=== PATIENT | female | born 1970 | race Caucasian/White ===

== ENCOUNTER 2016-09-23 10:24 | Inpatient (IN) | payer OTHER ==
[~2016-09-23] VITALS: Ht 175.3 cm; Wt 75.9 kg
[2016-09-23] MEDS ORDERED: SODIUM CHLORIDE 0.9% 1000ML 1,000 ML IV SCH (10:35)
--- NOTE | 2016-09-23 10:48 | EMERGENCY ROOM VISIT NOTE ---
History Report prepared by Willian: Johnnie Hess Under the Supervision of: Dr. Hortencia Greenwood D.O. First contact with patient: 10:26 Chief Complaint: NEURO SYMPTOMS Stated Complaint: NEURO SYMPTOMS Nursing Triage Summary: Pt arrives ALS from home Pt awoke at 0915 and had slurred speech and left side of body was flacid. Pt with noted left sided facial droop Recent insulin pump placed 2 months ago Pt reports sx lasted 45 mins History of Present Illness The patient is a 46 year old female who presents to the Emergency Room with complaints of an episode of neuro symptoms beginning at about 0915 this morning. Per the nurse, patient, and patient's , she woke this morning with a cramping pain in her left leg. After sitting for a couple minutes, she collapsed, and became unconscious for a few seconds. The notes she did not know who he was when she came to. She was unable to move her left arm or left leg, and the noticed the patient had slurred speech. The patient notes that she has diabetes, and when her sugar levels are low she has some numbness and weakness, but never paralysis. Her blood sugar was 63 her at the ER. She notes she started on an insulin pump about 1 month ago. The patient denies being anemic in the past with a need for a blood transfusion, but states she was anemic during a past . She denies any chance of at this time. She denies being on any blood thinners. The patient reports a family history of stroke with her mother most recently, and her grandfather who had multiple strokes. Source of History: patient, family, nursing staff Onset: about 0915 this morning Position: other (left side arm, leg, and face) Quality: other (neuro symptoms) Timing: other (episode) Associated Symptoms: + numbness, + weakness Note: Patient also had slurred speech, and left leg pain. Review of Systems See HPI for pertinent positives & negatives. A total of 10 systems reviewed and were otherwise negative. Past Medical & Surgical Medical Problems: (1) Hx of ectopic (2) IDDM (insulin dependent diabetes mellitus) (3) Left-sided weakness Surgical Problems: (1) Hx of tonsillectomy (2) S/P section Family History Stroke Social History Smoking Status: Former Smoker Marital Status: Housing Status: lives with significant other Current/Historical Medications Scheduled Insulin Aspart (novoLOG INSULIN PUMP ), 1 EA N/A UD Allergies Coded Allergies: Oxycodone (Unverified Allergy, Unknown, unknown, 09/23/16) Physical Exam Vital Signs Date Time Temp Pulse Resp B/P Pulse Ox O2 Delivery O2 Flow Rate FiO2 09/23/16 12:14 100 Room Air 09/23/16 11:45 81 18 118/80 100 Room Air 09/23/16 11:28 79 09/23/16 11:15 82 16 114/73 99 Room Air 09/23/16 10:48 100 Room Air 09/23/16 10:48 79 16 130/59 100 Room Air 09/23/16 10:27 36.9 82 16 124/73 100 Room Air Physical Exam HEENT: Head - normocephalic and atraumatic. Pupils are equal, round, and reactive to light. Extraocular eye muscles are intact and sclera are anicteric. Ears - bilaterally patent canals with noninjected tympanic membranes and no evidence of hemotympanum. Nose - moist nasal mucosa without discharge. Mouth - moist buccal mucosa. Oropharynx is nonerythematous and there is no tonsillar exudate or edema noted. Neck: Supple; no JVD, nuchal rigidity, cervical lymphadenopathy. Heart: Regular rate and rhythm. There is a normal S1 and S2 with no murmurs, clicks, or gallops appreciated. Lungs: Clear to auscultation bilaterally with no wheezes, rales, or rhonchi. Abdomen: Soft, completely nontender, nondistended, with good bowel sounds. There are no palpable pulsatile masses or hepatosplenomegaly. There is no guarding, rigidity, or rebound noted. Extremities: No evidence of cyanosis, clubbing, or edema. There are easily palpable peripheral pulses. Neuro: Alert and oriented. Left sided mouth droop. Slightly slurred speech. Decreased coordination in her left arm and left leg, with very slight weakness. Medical Decision & Procedures ER Provider Diagnostic Interpretation: Radiology results as stated below per my review and the radiologist's interpretation: HEAD CT NONCONTRAST Findings: Trace fluid within the right sphenoid sinus. The mastoid air cells are clear. The calvarium and skull base are intact. The ventricles and sulci are within normal limits. There is no mass, hematoma, midline shift, or acute infarct. Impression: No acute intracranial abnormality. Electronically signed by: Rick Machado M.D. 09/23/2016 10:58 AM Dictated Date/Time: 09/23/2016 10:55 AM CHEST ONE VIEW PORTABLE FINDINGS: The lungs are clear. Cardiac silhouette is normal in size. No pleural effusions. No pneumothorax. IMPRESSION: No acute process. Electronically signed by: Rick Machado M.D. 09/23/2016 11:08 AM Dictated Date/Time: 09/23/2016 11:05 AM Laboratory Results 09/23/16 10:53 Red Blood Count 3.95, Mean Corpuscular Volume 97.0, Mean Corpuscular Hemoglobin 31.6, Mean Corpuscular Hemoglobin Concent 32.6, Mean Platelet Volume 9.2, Neutrophils (%) (Auto) 79.4, Lymphocytes (%) (Auto) 14.6, Monocytes (%) (Auto) 5.5, Eosinophils (%) (Auto) 0.3, Basophils (%) (Auto) 0.1, Neutrophils # (Auto) 6.87, Lymphocytes # (Auto) 1.27, Monocytes # (Auto) 0.48, Eosinophils # (Auto) 0.03, Basophils # (Auto) 0.01 09/23/16 10:53 Test 09/23/16 10:34 09/23/16 10:53 Bedside Prothrombin Time INR 1.0 (0.9-1.1) White Blood Count 8.67 K/uL (4.8-10.8) Red Blood Count 3.95 M/uL (4.2-5.4) Hemoglobin 12.5 g/dL (12.0-16.0) Hematocrit 38.3 % (37-47) Mean Corpuscular Volume 97.0 fL (80-100) Mean Corpuscular Hemoglobin 31.6 pg (25-34) Mean Corpuscular Hemoglobin Concent 32.6 g/dl (32-36) Platelet Count 326 K/uL (130-400) Mean Platelet Volume 9.2 fL (7.4-10.4) Neutrophils (%) (Auto) 79.4 % Lymphocytes (%) (Auto) 14.6 % Monocytes (%) (Auto) 5.5 % Eosinophils (%) (Auto) 0.3 % Basophils (%) (Auto) 0.1 % Neutrophils # (Auto) 6.87 K/uL (1.4-6.5) Lymphocytes # (Auto) 1.27 K/uL (1.2-3.4) Monocytes # (Auto) 0.48 K/uL (0.11-0.59) Eosinophils # (Auto) 0.03 K/uL (0-0.5) Basophils # (Auto) 0.01 K/uL (0-0.2) RDW Standard Deviation 49.4 fL (36.4-46.3) RDW Coefficient of Variation 13.7 % (11.5-14.5) Immature Granulocyte % (Auto) 0.1 % Immature Granulocyte # (Auto) 0.01 K/uL (0.00-0.02) Prothrombin Time 10.3 SECONDS (9.0-12.0) Prothromb Time International Ratio 1.0 (0.9-1.1) Activated Partial Thromboplast Time 24.7 SECONDS (21.0-31.0) Partial Thromboplastin Ratio 1.0 Anion Gap 8.0 mmol/L (3-11) Est Creatinine Clear Calc Drug Dose 105.0 ml/min Estimated GFR () 111.0 Estimated GFR (Non- 95.8 BUN/Creatinine Ratio 13.3 (10-20) Estimated Average Glucose 174 mg/dl Hemoglobin A1c 7.7 % (4.5-5.6) Calcium Level 9.0 mg/dl (8.5-10.1) Total Creatine Kinase 72 U/L (26-192) Creatine Kinase MB 0.6 ng/ml (0.5-3.6) Creatine Kinase MB Ratio 0.8 (0-3.0) Troponin I < 0.015 ng/ml (0-0.045) Human Chorionic Gonadotropin, Qual NEG (NEG) Laboratory results per my review. Medications Administered Medications (Trade) Dose Ordered Sig/Yue Route Start Time Stop Time Status Last Admin Dose Admin Sodium Chloride (Nss 1000ml) 1,000 ml @ 50 mls/hr Q20H IV 09/23/16 10:35 09/23/16 14:08 DC 09/23/16 10:57 50 MLS/HR Procedure Medications Ordered: 1035: Ordered NSS 1,000 ml @ 50 mls/hr IV. ECG Indication: other (neuro symptoms) Rate (beats per minute): 76 Rhythm: normal sinus Findings: no acute ischemic change, no ectopy ED Course 1030: Past medical records reviewed. The patient was evaluated in room A11B. A complete history and physical exam was performed. 1035: Ordered NSS 1,000 ml @ 50 mls/hr IV. 1053: Discussed the patient's case with Dr. Bates. 1059: I reassessed the patient. Her facial droop and slurred speech have resolved. She has no more numbness in her leg, but her arm still feels weak. 1134: I reassessed the patient. Stroke score is down to 0. She is feeling somewhat symptomatic from her low blood sugar, so she will be getting some orange juice. 1153: Dr. Bates notes the patient's symptoms have completely resolved now. She recommends admission for further workup, and starting her on Aspirin. The patient's told her the loss of consciousness was 30 seconds and not five seconds as I was told. He thinks the patient should be reported to [facility]. I did fill out a [facility] form but she is from [facility] and regular 1200: Discussed the patient's case with Lois Menjivar PA-C. The patient will be evaluated for further management. Medical Decision The patient is a 46 year old female who presents to the Emergency Room with complaints of an episode of neuro symptoms beginning at about 0915 this morning. Differential Diagnoses: Hypoglycemia, hyperglycemia, TIA, and CVA. Laboratory Interpretations: No leukocytosis; normal H&H; normal renal function; negative cardiac enzymes; normal coags. The patient was made a stroke alert. I discussed the case with the neurologist from [place]. At this time, the patient's symptoms have completely resolved. The patient does have significant risk factors for stroke. The patient did not require TPA as her symptoms resolved. CT scan of her brain was unremarkable. I discussed the case the hospitalist and they will violate the patient for further inpatient care. Consults Time Called: 1050 Consulting Physician: Meagan Brenard Neurologist Returned Call: 1053 Discussed the patient's case with Dr. Bates. Additional Consults: Time Called: 1145 Consulted Physician: Meagan Bernard Neurologist Returned Call: 1153 Additional Comments: Dr. Bates notes the patient's symptoms have completely resolved now. She recommends admission for further workup, and starting her on Aspirin. The patient's told her the loss of consciousness was 30 seconds and not five seconds as I was told. She thinks the patient should be reported to [facility]. Time Called: 1155 Consulted Physician: Lois Menjivar PA-C, [place] Returned Call: 1200 Additional Comments: Discussed the patient's case with Lois Menjivar PA-C. The patient will be evaluated for further management. Impression Primary Impression: TIA (transient ischemic attack) Scribe Attestation The scribe's documentation has been prepared under my direction and personally reviewed by me in its entirety. I confirm that the note above accurately reflects all work, treatment, procedures, and medical decision making performed by me. Departure Information Dispostion Being Evaluated By Hospitalist Patient Instructions My [facility] Stroke History Stroke t-PA Criteria Reviewed Does NOT meet criteria for t-PA Reason t-PA Not Given Treatment not indicated Strict Exclusion Criteria Complete resolution of symptoms (NI
[2016-09-23] MEDS ORDERED: INSPMPNVLG (10:55)
--- NOTE | 2016-09-23 10:59 | DIAGNOSTIC IMAGING REPORT ---
HEAD CT NONCONTRAST CT DOSE: 537.48 mGy.cm HISTORY: Slurred speech. Stroke TECHNIQUE: Multiaxial CT images of the head were performed without the use of intravenous contrast. Automated exposure control was utilized for this study. Comparison: None. Findings: Trace fluid within the right sphenoid sinus. The mastoid air cells are clear. The calvarium and skull base are intact. The ventricles and sulci are within normal limits. There is no mass, hematoma, midline shift, or acute infarct. Impression: No acute intracranial abnormality. Electronically signed by: Rick Machado M.D. 09/23/2016 10:58 AM Dictated Date/Time: 09/23/2016 10:55 AM
[2016-09-23 11:04] LABS: BASO % 0.1 %; BASO ABS # 0.01 K/uL (0-0.2); COMPLETE YES; EOS % 0.3 %; HEMATOCRIT 38.3 % (37-47); IG% 0.1 %; LYMPH % 14.6 %; LYMPH ABS # 1.27 K/uL (1.2-3.4); MEAN CORPUSCULAR HEMOGLOBIN 31.6 pg (25-34); MEAN CORPUSCULAR HGB CONC 32.6 g/dl (32-36); MEAN PLATELET VOLUME 9.2 fL (7.4-10.4); MONO % 5.5 %; NEUT % 79.4 %; PLATELET COUNT 326 K/uL (130-400); RED BLOOD COUNT 3.95 M/uL (4.2-5.4); WHITE BLOOD COUNT 8.67 K/uL (4.8-10.8)
--- NOTE | 2016-09-23 11:09 | DIAGNOSTIC IMAGING REPORT ---
CHEST ONE VIEW PORTABLE HISTORY: Slurred speech. Left-sided weakness. Stroke COMPARISON: None. FINDINGS: The lungs are clear. Cardiac silhouette is normal in size. No pleural effusions. No pneumothorax. IMPRESSION: No acute process. Electronically signed by: Rick Machado M.D. 09/23/2016 11:08 AM Dictated Date/Time: 09/23/2016 11:05 AM
[2016-09-23 11:20] LABS: BLOOD UREA NITROGEN 10 mg/dl (7-18); BUN/CREATININE RATIO 13.3 (10-20); CARBON DIOXIDE 29 mmol/L (21-32); CHLORIDE 105 mmol/L (98-107); CREATININE 0.74 mg/dl (0.60-1.20); GLUCOSE 71 mg/dl (70-99); POTASSIUM 3.8 mmol/L (3.5-5.1); SODIUM 142 mmol/L (136-145)
[2016-09-23 11:22] LABS: PROTHROMBIN TIME (PATIENT) 10.3 SECONDS (9.0-12.0)
[2016-09-23 11:25] LABS: CKMB/CK RATIO 0.8 (0-3.0)
[2016-09-23 12:14] VITALS: O2SAT 100; Ht 175.3 cm; Wt 75.9 kg
[2016-09-23] MEDS ORDERED: GLUCOSE 40% GEL 15 GM TUBE PO PRN (12:45)
[2016-09-23] MEDS ORDERED: GLUCOSE 10 TABS/TUBE PO PRN (12:45)
[2016-09-23] MEDS ORDERED: ONDANSETRON INJ 2 MG/ML 2 ML VIAL IV PRN (12:45)
[2016-09-23] MEDS ORDERED: PHARMACIST DISCHARGE MED REC CONSULT PRN (12:45)
[2016-09-23] MEDS ORDERED: ACETAMINOPHEN 325 MG TAB PO PRN (12:45)
[2016-09-23] MEDS ORDERED: NovoLOG INSULIN PUMP SCH (12:45)
[2016-09-23] MEDS ORDERED: DEXTROSE 50% 50 ML SYR IV PRN (12:45)
[2016-09-23] MEDS ORDERED: GLUCAGON FOR INJ 1 MG VIAL SQ PRN (12:45)
[2016-09-23] MEDS ORDERED: ASPIRIN 81 MG CHEW PO STA (12:47)
[2016-09-23] MEDS ORDERED: ACETAMINOPHEN 325 MG TAB ONE (12:59)
[2016-09-23 13:12] LABS: PREG INTERNAL NEGATIVE QC NEG CLEAR BACKGROUND; PREG INTERNAL POSITIVE QC POS CONTROL LINE
--- NOTE | 2016-09-23 13:18 | History and Physical ---
History & Physical Date & Time of Service: Sep 23, 2016 at 12:51 Chief Complaint: Neuro Symptoms Primary Care Physician: No Doctor, Assigned History of Present Illness Source: patient, family, hospital records Patient seen and examined. 46 year old female with PMHx of DM1 on insulin pump and previous tobacco user presents to the ED complaining of left sided paralysis since prior to arrival. Patient reports she wokeup this morning with a severe cramp in her left leg. She sat up and screamed out in pain. Her reports that he came over and she was reaching out for him, she then slumped over and was unresponsive for a few seconds. When she woke up she was noted to have some confusion, have slurred speech and a mild left facial droop. She complained of left sided numbness and her left upper and lower extremities were paralyzed. Her tried to take her blood sugar but couldn't get it to work. He called 911 and EMS arrived, at that time patient's BSG was 76. Patient states her symptoms began to improve but she still had some symptoms upon arrival to the ED. A stroke alert was called and during examination patient 's stroke score improved to 0. Currently the patient feels back at baseline. She reports she has a headache but that that happens when her blood sugar is low or high. She denies recent fevers, chills, URI symptoms, chest pain, SOB, nausea, vomiting, diarrhea, dysuria, calf pain and edema. She denies palpitations, tongue trauma, and incontinence. She denies any previous history of these symptoms. She reports a family history of TIAs. She does not take aspirin. In the ED VS were stable, BSG was as low as 63 and improved after orange juice. CT head was negative. She will be admitted for further workup and treatment. Past Medical/Surgical History Medical Problems: (1) Hx of ectopic Status: Chronic (2) IDDM (insulin dependent diabetes mellitus) Status: Chronic Surgical Problems: (1) Hx of tonsillectomy Status: Chronic (2) S/P section Status: Chronic Family History Stroke MOTHER Social History Smoking Status: Former Smoker Alcohol Use: none Marital Status: Housing status: lives with family Occupational Status: employed Allergies Coded Allergies: Oxycodone (Unverified Allergy, Unknown, unknown, 09/23/16) Home Medications Scheduled Insulin Aspart (novoLOG INSULIN PUMP ), 1 EA N/A UD Review of Systems Constitutional: + weakness, No chills, No fever Eyes: No worsening of vision ENT: No nasal symptoms Respiratory: No cough, No shortness of breath Cardiovascular: No chest pain, No edema, No palpitations Abdomen: No constipation, No diarrhea, No nausea, No pain, No vomiting Musculoskeletal: + muscle pain, No swelling Genitourinary - Female: No dysuria Neurologic: + numbness/tingling, + paralysis, + weakness, No vertigo Psychiatric: No anxiety, No insomnia Endocrine: No fatigue Hematologic / Lymphatic: No abnormal bleeding/bruising, No clotting problems Integumentary: No itch, No rash Allergic / Immunologic: No environmental allergies Physical Exam Vital Signs Date Time Temp Pulse Resp B/P Pulse Ox O2 Delivery O2 Flow Rate FiO2 09/23/16 12:14 100 Room Air 09/23/16 11:45 81 18 118/80 100 Room Air 09/23/16 11:28 79 09/23/16 11:15 82 16 114/73 99 Room Air 09/23/16 10:48 100 Room Air 09/23/16 10:48 79 16 130/59 100 Room Air 09/23/16 10:27 36.9 82 16 124/73 100 Room Air General Appearance: + pertinent finding (Pleasant WD/WN 46 year old female lying in bed in NAD with family at bedside ) Head: normocephalic, atraumatic Eyes: PERRL, EOMI, sclerae normal ENT: hearing grossly normal, pharynx normal Neck: supple, no JVD Respiratory/Chest: chest non-tender, lungs clear, normal breath sounds, no respiratory distress, no accessory muscle use Cardiovascular: regular rate, rhythm, no edema, no gallop, no JVD, no murmur, normal peripheral pulses Abdomen/GI: normal bowel sounds, non tender, soft Back: normal inspection, no muscle spasm Extremities/Musculoskelatal: no calf tenderness, normal capillary refill, no pedal edema Neurologic/Psych: manager client II-XII nml as tested, no motor/sensory deficits, alert, normal reflexes, oriented x 3, + pertinent finding (Finger to nose intact, good rapid alternating movement, no focal deficits ) Skin: normal color, warm/dry, no rash Lymphatic: no adenopathy Diagnostics Laboratory Results Results Past 24 Hours Test 09/23/16 10:33 09/23/16 10:34 09/23/16 10:53 09/23/16 12:16 Range/Units Bedside Glucose 63 99 70-90 mg/dl Bedside Prothrombin Time INR 1.0 0.9-1.1 White Blood Count 8.67 4.8-10.8 K/uL Red Blood Count 3.95 4.2-5.4 M/uL Hemoglobin 12.5 12.0-16.0 g/dL Hematocrit 38.3 37-47 % Mean Corpuscular Volume 97.0 80-100 fL Mean Corpuscular Hemoglobin 31.6 25-34 pg Mean Corpuscular Hemoglobin Concent 32.6 32-36 g/dl Platelet Count 326 130-400 K/uL Mean Platelet Volume 9.2 7.4-10.4 fL Neutrophils (%) (Auto) 79.4 % Lymphocytes (%) (Auto) 14.6 % Monocytes (%) (Auto) 5.5 % Eosinophils (%) (Auto) 0.3 % Basophils (%) (Auto) 0.1 % Neutrophils # (Auto) 6.87 1.4-6.5 K/uL Lymphocytes # (Auto) 1.27 1.2-3.4 K/uL Monocytes # (Auto) 0.48 0.11-0.59 K/uL Eosinophils # (Auto) 0.03 0-0.5 K/uL Basophils # (Auto) 0.01 0-0.2 K/uL RDW Standard Deviation 49.4 36.4-46.3 fL RDW Coefficient of Variation 13.7 11.5-14.5 % Immature Granulocyte % (Auto) 0.1 % Immature Granulocyte # (Auto) 0.01 0.00-0.02 K/uL Prothrombin Time 10.3 9.0-12.0 SECONDS Prothromb Time International Ratio 1.0 0.9-1.1 Activated Partial Thromboplast Time 24.7 21.0-31.0 SECONDS Partial Thromboplastin Ratio 1.0 Sodium Level 142 136-145 mmol/L Potassium Level 3.8 3.5-5.1 mmol/L Chloride Level 105 98-107 mmol/L Carbon Dioxide Level 29 21-32 mmol/L Anion Gap 8.0 3-11 mmol/L Blood Urea Nitrogen 10 7-18 mg/dl Creatinine 0.74 0.60-1.20 mg/dl Est Creatinine Clear Calc Drug Dose 105.0 ml/min Estimated GFR () 111.0 Estimated GFR (Non- 95.8 BUN/Creatinine Ratio 13.3 10-20 Random Glucose 71 70-99 mg/dl Calcium Level 9.0 8.5-10.1 mg/dl Total Creatine Kinase 72 26-192 U/L Creatine Kinase MB 0.6 0.5-3.6 ng/ml Creatine Kinase MB Ratio 0.8 0-3.0 Troponin I < 0.015 0-0.045 ng/ml Test 09/23/16 12:49 Range/Units Diagnostic Radiology CXR Per radiologist read: IMPRESSION: No acute process. CT HEAD Per radiologist read: Impression: No acute intracranial abnormality. EKG NSR 76 BPM, QTc 477 Impression Assessment and Plan 46 year old female with IDDM presents to the ED with stroke like symptoms prior to arrival. Started with left leg pain then patient had syncopal episode. When patient woke up she had slurred speech, left facial droop, left sided paralysis and numbness. CT head negative. Currently back at baseline LEFT SIDED WEAKNESS/PARALYSIS -Admit to tele -CT head negative in ED, back at neurologic baseline -differential diagnosis to include TIA, hypoglycemic event, vasovagal episode and other etiologies -MRA/MRI to r/o CVA -Echo pending to r/o embolic source -Carotid Doppler US pending -Monitor in tele to r/o arrhythmia -Received Aspirin in ED, continue daily -Add statin for plaque stabilization -Check A1c, Lipid profile for risk stratification -Neurology consult pending for further input, spoke with Dr. Rausch, input appreciated -Neuro checks q4h -CBC, PRP, Mg daily -VSS stable monitor INSULIN DEPENDENT DIABETES -with relative hypoglycemia -continue insulin pump for now -If BSG do not stabilize may need to transition to a basal, bolus dosing while inpatient -BSG AC HS -consistent carb diet -Follows with Rosi Miller [place], [place] DVT PROPHYLAXIS: Sq lovenox CODE STATUS: FULL CODE DISPO:In my clinical judgment this beneficiary meets acute admission criteria, established by [facility], that includes being hospitalized through two midnights. Patient seen in collaboration with Dr. Coffmna Advanced Directives Existing Living Will: No Existing Power of Curing Machine Operator: No VTE Prophylaxis VTE Risk Assessment Done? Y/N: Yes Risk Level: Moderate Given or contraindicated: Enoxaparin (Lovenox)SQ Note ATTENDING ADDENDUM Record reviewed. Patient interviewed and examined. Care coordinated with Lois Menjivar PA-C. Please refer to her documentation for patient's history. Briefly, 46 YO female with DM type 1 managed with insulin pump. Developed severe left leg cramps this morning, followed by syncope. Experienced dysarthria and paresthesia / weakness of left arm and leg after syncopal episode. No apparent seizure activity. No headache. Blood sugar by EMS in 70's. Symptoms resolved in ED. No prior neurologic history. EXAM: General- no distress VS- as noted HEENT- PERRL, EOMI, anicteric Neck- no JVD Lungs- clear Heart- RRR, no murmur or gallop Abdomen- + BS, soft, nontender Extremities- no pretibial edema or calf tenderness; pedal pulses intact; normal temperature & color lower extremities Neuro- alert, oriented; PERRL, EOMI; no facial palsy; no dysarthria; motor strength upper and lower extremities intact; patellar DTR's 2/2; plantar reflexes downgoing; no difficulty with heal to [place] DATA: Lab studies as noted. Head CT neg. EKG- NSR 76, no acute changes. ASSESSMENT AND PLAN: NEURO SYMPTOMS Transient dysarthria and left sided weakness / paresthesiae. Exam normalized in ED. Symptoms preceded by severe leg pain followed by syncope. Neuro symptoms may have been secondary to TIA. Alternatively, consider hypoglycemia or transient cerebral hypoperfusion due to vasovagal episode. TPA not indicated due to resolution of symptoms. Check MRI brain, MRA brain, carotid duplex, echo. Monitor for arrhythmias. Consult Neuro. SYNCOPE Most likely vasovagal episode. Monitor for arrhythmias. Neuro work-up as noted above. LLE PAIN No apparent vascular event. Follow. DM TYPE 1 Consult Pharmacy to assist with management of insulin pump. Please refer to [employer] Menjivar's documentation for discussion of other issues. Slava Coffman MD . Additional Copies To Maulik Tobin MD ; Rosi Miller
[2016-09-23 13:34] LABS: ESTIMATED AVERAGE GLUCOSE 174 mg/dl; HA1C FLAG Normal (Normal)
[2016-09-23 13:36] LABS: URINE APPEARANCE CLEAR (CLEAR); URINE BILIRUBIN NEG (NEG); URINE COLOR YELLOW; URINE NITRITE NEG (NEG); URINE SPECIFIC GRAVITY 1.009 (1.000-1.030); UROBILINOGEN NEG (NEG); ZZUR CULT IF INDIC CLEAN CATCH NO
[2016-09-23 13:44] LABS: MANUAL MICROSCOPIC REQUIRED? NO; REVIEW REQ? NO
[2016-09-23 13:45] VITALS: BP 120/75; PULSE 84; TEMP 36.5; O2SAT 100
[2016-09-23 14:10] LABS: BENZODIAZEPINE, URINE NEG (NEG); COCAINE,URINE NEG (NEG); PHENCYCLIDINE, URINE NEG (NEG)
[2016-09-23] MEDS ORDERED: INSULIN ASPART 100 UNITS/ML VIAL SC PRN (14:15)
[2016-09-23] MEDS: NovoLOG INSULIN PUMP SCH ×3 (14:20→21:04)
[2016-09-23] MEDS ORDERED: LORAZEPAM 0.5 MG TAB PO PRN (14:45)
[2016-09-23 15:11] VITALS: BP 118/75; PULSE 85; TEMP 36.9; O2SAT 97
[2016-09-23] MEDS ORDERED: PHARMACY GLYCEMIC MGMT CONSULT PRN (15:28)
--- NOTE | 2016-09-23 15:54 | PROGRESS NOTE ---
DATE: 09/23/2016 FOR PHYSICIAN: Dr. Rani Arellano. Kandace is a 46-year-old woman, [facility] [place] [facility] the count includes the [facility] [place] and followed there by endocrinology and primary care. She has longstanding diabetes and on insulin pump for the past month and apparently has had some episodes of hypoglycemia which are being addressed. She was visiting here in [place], awakened this morning with severe cramping of her left calf and sat up, screaming in pain and then had a brief episode of loss of consciousness, probably of 30 seconds or so duration without any convulsive movements and woke up slightly confused with a left-sided hemiparesis, hemisensory deficits, and some mild confusion. She was brought to the Emergency Room. The blood sugar was actually found to be 76. A stroke alert was called. The [place] stroke neurology team was evaluating her when her entire condition improved and she was back to a NIH score of 0. No TPA was obviously given. Aspirin was recommended as she was not on it but because of the altered consciousness, it was recommended that [facility] Department of Motor Vehicles be notified and apparently this was done. Lois Us called me for further advice. I am now reviewing the case. When I heard about it the first time, I really had nothing further to offer other than recommendation that imaging studies be done but that these be adjusted based on whether or not our radiology department can perform magnetic resonance imaging studies in a patient with insulin pump and I believe this is being investigated now. Currently, her CT scan has been done, it was reviewed and is normal. Chest x-ray is normal, but other imaging studies are pending including at least a carotid duplex and ideally an MRI of the brain with an MRA of the intracranial vessels, but if these cannot be done, then a repeat CAT scan in the morning and a CT angiogram, depending on her renal function will be necessary. PAST MEDICAL HISTORY: Was reviewed and reveals an ectopic . Insulin-dependent diabetes. She has had a T\\T\\A and section. FAMILY HISTORY: Strongly positive for strokes in her mother SOCIAL HISTORY: Reveals her to be a former smoker and nonconsumer of ethanol, living with her family and children and to be employed. ALLERGIES: SHE HAS ALLERGIES APPARENTLY TO ACETAMINOPHEN AND OXYCODONE. HOME MEDICATIONS: Include insulin via pump. No other medications. SYSTEMS REVIEW: Obtained in the ER reveals no systemic issues, problems referable to the head, eyes, ears, nose and throat, cardiovascular, pulmonary, gastrointestinal, genitourinary, or neuromuscular systems other than apparently some headaches over the years, associated with "hypoglycemia" but no apparent migraines, although this history will need to be delved into a little further. PHYSICAL EXAMINATION: VITAL SIGNS: Revealed blood pressure 118/80, pulse 81, respirations are 18. GENERAL: She was pleasant, did not appear to be in any distress and had reverted to her normal neurologic status by the time she was assessed. General examination was normal. NEUROLOGIC: Examination performed by the internal medicine service was normal. Basic laboratory studies have been unremarkable with a blood sugar of 99 and unremarkable electrolytes. Again, the CT scan reviewed by myself shows no significant issues, but again other evaluations are still underway and being judged by our radiology department based on the presence of the insulin pump. Right now, I have no recommendations other than those offered by the [place] neurology service and I will see her in the morning. Right now aspirin seems to be a reasonable choice. We would not necessarily add Plavix unless we find clear cut evidence for a completed cva. We will see if she has had a completed event based on imaging studies. She will also need an echocardiogram. Followup obviously will be in her home state of [place] once we are through with our initial assessment here. Regarding the syncopal event, I think this is probably a vagally mediated event related to the severity of the pain. Nothing about it sounds like a seizure. She can probably use an outpatient EEG after discharge, assuming she is stable tomorrow and we deem her ready for discharge to home by late tomorrow afternoon. Again, I will reassess her in the morning. DAGMAR
[2016-09-23] MEDS ORDERED: ENOXAPARIN 40 MG/0.4 ML SYR SC SCH (16:00)
--- NOTE | 2016-09-23 16:19 | DIAGNOSTIC IMAGING REPORT ---
Brain MRI WITH AND WITHOUT CONTRAST HISTORY: Left-sided paralysis. Stroke TECHNIQUE: Multiplanar multisequence MRI of the brain was performed both before and after the intravenous administration of contrast. COMPARISON STUDY: None. FINDINGS: There are no areas of restricted diffusion to suggest acute infarction. The midline structures are intact. Small amount of fluid within the right sphenoid sinus. The mastoid air cells are clear. The ventricles and sulci are within normal limits for age. There is no mass, hematoma, midline shift. The major vascular flow-voids at the skull base are well maintained. Postcontrast sequences show no areas of abnormal enhancement. There are 2 punctate foci of T2 hyperintensity seen within the subcortical white matter of the bilateral frontal lobes. IMPRESSION: No acute intracranial abnormality. There are 2 punctate foci of T2 hyperintensity seen within the subcortical white matter the bilateral frontal lobes. These are nonspecific but could be due to minimal microvascular ischemic change or migraines. A demyelinating disease is considered unlikely given the pattern of involvement. Electronically signed by: Rick Machado M.D. 09/23/2016 4:18 PM Dictated Date/Time: 09/23/2016 4:12 PM
--- NOTE | 2016-09-23 16:23 | DIAGNOSTIC IMAGING REPORT ---
Brain MRA HISTORY: Stroke - Attention to [place] TECHNIQUE: 3-D [id number] MRA of the brain was performed without contrast. COMPARISON STUDY: None. FINDINGS: Visualized intracranial internal carotid arteries, distal vertebral arteries, and basilar artery are widely patent. There is no significant stenosis, occlusion, or aneurysm seen within the bilateral ACAs, MCAs, or cane packer. The basilar artery and distal vertebral arteries are slightly hypoplastic. The bilateral P1 segments are hypoplastic. The bilateral cane packer are fed primarily through the dominant posterior communicating arteries. This is consistent with persistent circulation. 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 IMPRESSION: No significant stenosis, occlusion, or aneurysm within the [place]. Electronically signed by: Rick Machado M.D. 09/23/2016 4:22 PM Dictated Date/Time: 09/23/2016 4:18 PM
[2016-09-23 19:01] VITALS: BP 101/66; PULSE 87; TEMP 37.1; O2SAT 96
[2016-09-23 20:00] VITALS: O2SAT 96
[2016-09-23] MEDS: TRAMADOL HCL 50 MG TAB PO PRN (20:11)
[2016-09-23 23:12] VITALS: BP 99/63; PULSE 70; TEMP 36.8; O2SAT 97
[2016-09-24] VITALS (8 sets, daily range): BP systolic 97–101; BP diastolic 61–66; PULSE 60–84; TEMP 36.4–36.9; O2SAT 96–97
[2016-09-24 06:04] LABS: BASO % 0.3 %; BASO ABS # 0.02 K/uL (0-0.2); COMPLETE YES; EOS % 1.4 %; HEMATOCRIT 37.5 % (37-47); IG% 0.2 %; LYMPH % 39.3 %; LYMPH ABS # 2.32 K/uL (1.2-3.4); MEAN CELL VOLUME 97.2 fL (80-100); MEAN CORPUSCULAR HEMOGLOBIN 32.4 pg (25-34); MEAN CORPUSCULAR HGB CONC 33.3 g/dl (32-36); MEAN PLATELET VOLUME 9.2 fL (7.4-10.4); MONO % 10.2 %; NEUT % 48.6 %; PLATELET COUNT 294 K/uL (130-400); RED BLOOD COUNT 3.86 M/uL (4.2-5.4); WHITE BLOOD COUNT 5.91 K/uL (4.8-10.8)
[2016-09-24 06:52] LABS: BUN/CREATININE RATIO 19.1 (10-20); CALCIUM 9.1 mg/dl (8.5-10.1); CHOLESTEROL/HDL RATIO 4.1; CREATININE 0.6 mg/dl (0.60-1.20); POTASSIUM 3.5 mmol/L (3.5-5.1)
--- NOTE | 2016-09-24 07:24 | DIAGNOSTIC IMAGING REPORT ---
CAROTID ARTERY ULTRASOUND CLINICAL HISTORY: Stroke COMPARISON STUDY: None. TECHNIQUE: Real-time, grayscale, and color Doppler sonography of the carotid and vertebral arteries was performed. Images were viewed in the transverse and longitudinal planes. FINDINGS: There is minimal atherosclerotic plaque. Velocity measurements are listed below. COMMON CAROTID PEAK SYSTOLIC VELOCITY (CM/S): RIGHT 81 LEFT 90 ICA PEAK SYSTOLIC VELOCITY (CM/S): RIGHT 87 LEFT 87 The systolic ratios between the internal to common carotid arteries were normal. Antegrade flow is seen in the vertebral arteries. The external carotid arteries are patent. Blood pressures could not be obtained in this patient. IMPRESSION: No evidence of a hemodynamically significant stenosis. Electronically signed by: Caleb Lopez M.D. 09/24/2016 7:23 AM Dictated Date/Time: 09/24/2016 7:21 AM
[2016-09-24] MEDS ORDERED: ATORVASTATIN 40 MG TAB PO SCH (09:00)
[2016-09-24] MEDS ORDERED: ASPIRIN 81 MG ECTAB PO SCH (09:00)
--- NOTE | 2016-09-24 09:05 | ECHOCARDIOGRAM REPORT ---
*NOTICE TO RECEIVING [employer] This information is strictly Confidential and protected under [place] law. [place] law prohibits you from making any further disclosure of this information unless further disclosure is expressly permitted by the written consent of the person to whom it pertains or is authorized by law. A general authorization for the release of medical or other information is not sufficient for this purpose. Hospital accepts no responsibility if the information is made available to any other person, INCLUDING THE PATIENT. Interpretation Summary * Name: JEFF CALLE Study Date: 09/24/2016 06:51 AM BP: 117/69 mmHg * Patient Location: C.2T\S\S230\S\1 HR: 81 * : 1970 (M/d/yyyy) Gender: Female Height: 69 in * Age: 46 yrs Ethnicity: CA Weight: 175 lb * Ordering Physician: Lois Menjivar * Performed By: Rosie Santana * * Reason For Study: STROKE LIKE SYMPTOMS * BSA: 2.0 m2 * -- Conclusions -- * The left ventricle is normal in size. * Left ventricular systolic function is normal. * Ejection Fraction = 65-70%. * The right ventricular systolic function is normal. * The left atrial size is normal. * Right atrial size is normal. * No significant valvular patrhology. Procedure Details * A complete two-dimensional transthoracic echocardiogram was performed (2D, M-mode, Doppler and color flow Doppler). * A saline contrast injection was performed to assess for cardiac shunting. * The injection was performed through an intravenous line in the right arm. * The attending nurse who injected the saline contrast was SHY VILLEGAS RN. * A total of 20 cc of agitated saline was given. Left Ventricle * The left ventricle is normal in size. * There is normal left ventricular wall thickness. * Ejection Fraction = 65-70%. * Left ventricular systolic function is normal. * The left ventricular wall motion is normal. Right Ventricle * The right ventricle is normal size. * The right ventricular systolic function is normal. Atria * The left atrial size is normal. * Right atrial size is normal. * The interatrial septum is intact with no evidence for an atrial septal defect. Mitral Valve * The mitral valve is normal in structure and function. Tricuspid Valve * The tricuspid valve is normal in structure and function. Aortic Valve * The aortic valve is normal in structure and function. Great Vessels * The aortic root and proximal ascending aorta are normal sized. Pericardium/Pleural * There is no pericardial effusion. MMode 2D Measurements and Calculations IVSd 1.2 cm IVSs 1.3 cm LVIDd 4.0 cm LVIDs 2.5 cm LVPWd 0.84 cm LVPWs 1.9 cm IVS/LVPW 1.5 FS 38.9 % EDV(Teich) 71.7 ml ESV(Teich) 21.6 ml EF(Teich) 69.9 % EDV(cubed) 65.9 ml ESV(cubed) 15.0 ml EF(cubed) 77.2 % % IVS thick 9.9 % % LVPW thick 123.2 % LV mass(C)d 135.5 grams LV mass(C)dI 69.4 grams/m\S\2 LV mass(C)s 142.0 grams LV mass(C)sI 72.7 grams/m\S\2 SV(Teich) 50.1 ml SI(Teich) 25.6 ml/m\S\2 SV(cubed) 50.9 ml SI(cubed) 26.1 ml/m\S\2 ACS 1.4 cm LA dimension 2.6 cm asc Aorta Diam 2.9 cm LVOT diam 1.9 cm LVOT area 2.8 cm\S\2 LVAd ap4 21.2 cm\S\2 LVLd ap4 6.6 cm EDV(MOD-sp4) 55.3 ml EDV(sp4-el) 58.0 ml LVAs ap4 9.8 cm\S\2 LVLs ap4 5.1 cm ESV(MOD-sp4) 16.6 ml ESV(sp4-el) 16.1 ml EF(MOD-sp4) 69.9 % EF(sp4-el) 72.3 % LVAd ap2 22.4 cm\S\2 LVLd ap2 7.0 cm EDV(MOD-sp2) 59.3 ml EDV(sp2-el) 61.0 ml LVAs ap2 10.6 cm\S\2 LVLs ap2 5.0 cm ESV(MOD-sp2) 18.3 ml ESV(sp2-el) 19.2 ml EF(MOD-sp2) 69.1 % EF(sp2-el) 68.6 % LVLd %diff 5.7 % EDV(MOD-bp) 59.1 ml LVLs %diff -1.35 % ESV(MOD-bp) 16.7 ml EF(MOD-bp) 71.7 % SV(MOD-sp4) 38.7 ml SI(MOD-sp4) 19.8 ml/m\S\2 SV(MOD-sp2) 41.0 ml SI(MOD-sp2) 21.0 ml/m\S\2 SV(MOD-bp) 42.3 ml SI(MOD-bp) 21.7 ml/m\S\2 SV(sp4-el) 41.9 ml SI(sp4-el) 21.5 ml/m\S\2 SV(sp2-el) 41.9 ml SI(sp2-el) 21.4 ml/m\S\2 Doppler Measurements and Calculations MV E max dayna 67.4 cm/sec MV A max dayna 57.2 cm/sec MV E/A 1.2 MV dec time 0.32 sec Ao V2 max 133.9 cm/sec Ao max PG 7.2 mmHg Ao max PG (full) 2.4 mmHg SIENA(V,A) 2.3 cm\S\2 SIENA(V,D) 2.3 cm\S\2 LV V1 max PG 4.8 mmHg LV V1 max 109.5 cm/sec PA V2 max 76.6 cm/sec PA max PG 2.3 mmHg
[2016-09-24] MEDS: NovoLOG INSULIN PUMP SCH ×2 (09:30→11:40)
--- NOTE | 2016-09-24 12:20 | Progress Note ---
Medicine Progress Note Date & Time of Visit: Sep 24, 2016 at 11:52. Subjective Pt was seen and examined Sitting at the edge of the bed with at bed side Pt said that she feels fine she denies any chest pain, palpitation, dizziness and sob Objective Last 8 Hrs Date Time Temp Pulse Resp B/P Pulse Ox O2 Delivery O2 Flow Rate FiO2 09/24/16 11:29 36.9 76 16 101/65 96 Room Air 09/24/16 07:57 36.4 84 16 97/66 97 Room Air 09/24/16 04:00 97 Room Air 09/24/16 03:58 36.6 60 16 97/61 97 Room Air Physical Exam: General- No acute distress, very pleasant Head- atraumatic Eyes- PERRL, EOMI ENT- oropharynx clear Neck- supple, no JVD Lungs- clear to auscultation, no wheezing Heart- regular rhythm; no murmur Abdomen- normal bowel sounds, soft Extremities- no pretibial edema, no calf tenderness Neuro- alert, oriented x 3; PERRL, EOMI; no facial palsy; no dysarthria; motor 5 /5 bilaterally Skin- warm & dry Laboratory Results: Last 24 Hours Test 09/23/16 12:16 09/23/16 13:20 09/23/16 13:37 09/24/16 05:28 Bedside Glucose 99 mg/dl 210 mg/dl Urine Color YELLOW Urine Appearance CLEAR Urine pH 7.0 Urine Specific [place] 1.009 Urine Protein NEG Urine Glucose (UA) TRACE Urine Ketones TRACE Urine Occult Blood NEG Urine Nitrite NEG Urine Bilirubin NEG Urine Urobilinogen NEG Urine Leukocyte Esterase NEG Urine Opiates Screen NEG Urine Methadone, Qualitative NEG Urine Barbiturates NEG Urine Phencyclidine (PCP) Level NEG Ur Amphetamine/Methamphetamine NEG MDMA (Ecstasy) Screen NEG Urine Benzodiazepines Screen NEG Urine Cocaine Metabolite NEG Urine Marijuana (THC) NEG White Blood Count 5.91 K/uL Red Blood Count 3.86 M/uL Hemoglobin 12.5 g/dL Hematocrit 37.5 % Mean Corpuscular Volume 97.2 fL Mean Corpuscular Hemoglobin 32.4 pg Mean Corpuscular Hemoglobin Concent 33.3 g/dl Platelet Count 294 K/uL Mean Platelet Volume 9.2 fL Neutrophils (%) (Auto) 48.6 % Lymphocytes (%) (Auto) 39.3 % Monocytes (%) (Auto) 10.2 % Eosinophils (%) (Auto) 1.4 % Basophils (%) (Auto) 0.3 % Neutrophils # (Auto) 2.88 K/uL Lymphocytes # (Auto) 2.32 K/uL Monocytes # (Auto) 0.60 K/uL Eosinophils # (Auto) 0.08 K/uL Basophils # (Auto) 0.02 K/uL RDW Standard Deviation 49.5 fL RDW Coefficient of Variation 14.0 % Immature Granulocyte % (Auto) 0.2 % Immature Granulocyte # (Auto) 0.01 K/uL Sodium Level 143 mmol/L Potassium Level 3.5 mmol/L Chloride Level 106 mmol/L Carbon Dioxide Level 28 mmol/L Anion Gap 9.0 mmol/L Blood Urea Nitrogen 11 mg/dl Creatinine 0.60 mg/dl Est Creatinine Clear Calc Drug Dose 119.9 ml/min Estimated GFR () 124.9 Estimated GFR (Non- 107.8 BUN/Creatinine Ratio 19.1 Random Glucose 32 mg/dl Calcium Level 9.1 mg/dl Triglycerides Level 75 mg/dl Cholesterol Level 192 mg/dl HDL Cholesterol 47 mg/dl LDL Cholesterol, Calculated 130 mg/dl VLDL Cholesterol, Calculated 15 mg/dl Cholesterol/HDL Ratio 4.1 Test 09/24/16 06:55 09/24/16 07:10 09/24/16 07:52 Bedside Glucose 34 mg/dl 40 mg/dl 109 mg/dl Diagnostic Imaging: Brain MRI WITH AND WITHOUT CONTRAST HISTORY: Left-sided paralysis. Stroke TECHNIQUE: Multiplanar multisequence MRI of the brain was performed both before and after the intravenous administration of contrast. COMPARISON STUDY: None. FINDINGS: There are no areas of restricted diffusion to suggest acute infarction. The midline structures are intact. Small amount of fluid within the right sphenoid sinus. The mastoid air cells are clear. The ventricles and sulci are within normal limits for age. There is no mass, hematoma, midline shift. The major vascular flow-voids at the skull base are well maintained. Postcontrast sequences show no areas of abnormal enhancement. There are 2 punctate foci of T2 hyperintensity seen within the subcortical white matter of the bilateral frontal lobes. IMPRESSION: No acute intracranial abnormality. There are 2 punctate foci of T2 hyperintensity seen within the subcortical white matter the bilateral frontal lobes. These are nonspecific but could be due to minimal microvascular ischemic change or migraines. A demyelinating disease is considered unlikely given the pattern of involvement. Electronically signed by: Rick Machado M.D. 09/23/2016 4:18 PM Dictated Date/Time: 09/23/2016 4:12 PM CAROTID ARTERY ULTRASOUND CLINICAL HISTORY: Stroke COMPARISON STUDY: None. TECHNIQUE: Real-time, grayscale, and color Doppler sonography of the carotid and vertebral arteries was performed. Images were viewed in the transverse and longitudinal planes. FINDINGS: There is minimal atherosclerotic plaque. Velocity measurements are listed below. COMMON CAROTID PEAK SYSTOLIC VELOCITY (CM/S): RIGHT 81 LEFT 90 ICA PEAK SYSTOLIC VELOCITY (CM/S): RIGHT 87 LEFT 87 The systolic ratios between the internal to common carotid arteries were normal. Antegrade flow is seen in the vertebral arteries. The external carotid arteries are patent. Blood pressures could not be obtained in this patient. IMPRESSION: No evidence of a hemodynamically significant stenosis. Electronically signed by: Caleb Lopez M.D. 09/24/2016 7:23 AM Dictated Date/Time: 09/24/2016 7:21 AM Brain MRA HISTORY: Stroke - Attention to [place] TECHNIQUE: 3-D [id number] MRA of the brain was performed without contrast. COMPARISON STUDY: None. FINDINGS: Visualized intracranial internal carotid arteries, distal vertebral arteries, and basilar artery are widely patent. There is no significant stenosis, occlusion, or aneurysm seen within the bilateral ACAs, MCAs, or route driver coin machines. The basilar artery and distal vertebral arteries are slightly hypoplastic. The bilateral P1 segments are hypoplastic. The bilateral route driver coin machines are fed primarily through the dominant posterior communicating arteries. This is consistent with persistent circulation. 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 IMPRESSION: No significant stenosis, occlusion, or aneurysm within the [place]. Electronically signed by: Rick Machado M.D. 09/23/2016 4:22 PM Dictated Date/Time: 09/23/2016 4:[address]CONTRAST CT DOSE: 537.48 mGy.cm HISTORY: Slurred speech. Stroke TECHNIQUE: Multiaxial CT images of the head were performed without the use of intravenous contrast. Automated exposure control was utilized for this study. Comparison: None. Findings: Trace fluid within the right sphenoid sinus. The mastoid air cells are clear. The calvarium and skull base are intact. The ventricles and sulci are within normal limits. There is no mass, hematoma, midline shift, or acute infarct. Impression: No acute intracranial abnormality. Electronically signed by: Rick Machado M.D. 09/23/2016 10:58 AM Dictated Date/Time: 09/23/2016 10:55 AM ECHO Interpretation Summary * Name: JEFF CALLE Study Date: 09/24/2016 06:51 AM BP: 117/69 mmHg * Patient Location: C.2T\S\S230\S\1 HR: 81 * : 1970 (M/d/yyyy) Gender: Female Height: 69 in * Age: 46 yrs Ethnicity: CA Weight: 175 lb * Ordering Physician: Lois Menjivar * Performed By: Rosie Santana * * Reason For Study: STROKE LIKE SYMPTOMS * BSA: 2.0 m2 * -- Conclusions -- * The left ventricle is normal in size. * Left ventricular systolic function is normal. * Ejection Fraction = 65-70%. * The right ventricular systolic function is normal. * The left atrial size is normal. * Right atrial size is normal. * No significant valvular patrhology. Procedure Details * A complete two-dimensional transthoracic echocardiogram was performed (2D, M-mode, Doppler and color flow Doppler). * A saline contrast injection was performed to assess for cardiac shunting. * The injection was performed through an intravenous line in the right arm. * The attending nurse who injected the saline contrast was SHY VILLEGAS RN. * A total of 20 cc of agitated saline was given. Left Ventricle * The left ventricle is normal in size. * There is normal left ventricular wall thickness. * Ejection Fraction = 65-70%. * Left ventricular systolic function is normal. * The left ventricular wall motion is normal. Right Ventricle * The right ventricle is normal size. * The right ventricular systolic function is normal. Atria * The left atrial size is normal. * Right atrial size is normal. * The interatrial septum is intact with no evidence for an atrial septal defect. Mitral Valve * The mitral valve is normal in structure and function. Tricuspid Valve * The tricuspid valve is normal in structure and function. Aortic Valve * The aortic valve is normal in structure and function. Great Vessels * The aortic root and proximal ascending aorta are normal sized. Pericardium/Pleural * There is no pericardial effusion. Assessment & Plan LEFT SIDED WEAKNESS/PARESTHESIAE/DYSARTHRIA Possible related to vasovagal vs TIA vs hypoglycemic event Doubt about seizure Stroke R/O CT head negative MRI of Brain showed no acute intracranial abnormality Carotid U/S showed no evidence of a hemodynamically significant stenosis MRA of the brain showed No significant stenosis, occlusion, or aneurysm within the [place]. 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 Will discharge today if ok by neuro ECHO done The left ventricle is normal in size. * Left ventricular systolic function is normal. * Ejection Fraction = 65-70%. * The right ventricular systolic function is normal. * The left atrial size is normal. * Right atrial size is normal. 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 No arrhythmias. stable DVT PROPHYLAXIS: Sq lovenox CODE STATUS: FULL CODE Consultants: Neurology Current Inpatient Medications: Current Inpatient Medications Medications (Trade) Dose Ordered Sig/Yue Route Start Time Stop Time Status Last Admin Dose Admin Enoxaparin Sodium (Lovenox Inj) 40 mg Q24H SC 09/23/16 16:00 10/23/16 15:59 09/23/16 16:27 40 MG Ondansetron HCl (Zofran Inj) 4 mg Q6H PRN IV 09/23/16 12:45 10/23/16 12:44 Atorvastatin Calcium (Lipitor Tab) 40 mg QAM PO 09/24/16 09:00 10/24/16 08:59 09/24/16 10:02 40 MG Miscellaneous Information (Pharmacist Discharge Med Rec Consult) 1 ea UD PRN N/A 09/23/16 12:45 10/23/16 12:44 Glucose (Glucose 40% Gel) 15-30 GRAMS 15 GRAMS... UD PRN PO 09/23/16 12:45 10/23/16 12:44 Glucose (Glucose Chew Tab) 4-8 Tablets 4 Tabl... UD PRN PO 09/23/16 12:45 10/23/16 12:44 09/24/16 06:59 8 TABS Dextrose (Dextrose 50% 50ML Syringe) 25-50ML OF 50% DW IV FOR... UD PRN IV 09/23/16 12:45 10/23/16 12:44 Glucagon (Glucagon Inj) 1 mg UD PRN SQ 09/23/16 12:45 10/23/16 12:44 Acetaminophen (Tylenol Tab) 650 mg Q4H PRN PO 09/23/16 12:45 10/23/16 12:44 09/23/16 20:12 650 MG Aspirin (Ecotrin Tab) 81 mg QAM PO 09/24/16 09:00 10/24/16 08:59 09/24/16 10:02 81 MG Insulin Aspart (novoLOG INSULIN PUMP) 1 ea ACHS N/A 09/23/16 16:15 10/23/16 16:14 09/24/16 09:30 1 EA Insulin Aspart (novoLOG ASPART) SLIDING SCALE PRN PRN SC 09/23/16 14:15 10/23/16 14:14 Miscellaneous Information (Consult Glycemic Management Pharmacy) 1 ea UD PRN N/A 09/23/16 15:28 10/23/16 15:27 Tramadol HCl (Ultram Tab) 50 mg Q4H PRN PO 09/23/16 19:30 10/23/16 19:29 09/23/16 20:11 50 MG
--- NOTE | 2016-09-24 13:09 | CONSULTATION REPORT ---
DATE OF CONSULTATION: 09/24/2016 REQUESTING PHYSICIAN: Dr. Arellano. HISTORY OF PRESENT ILLNESS: I saw Kandace today for the first time. I refer the reader to my progress note of yesterday which I wrote based on review of her case and the imaging studies that were available then. The history really has not changed. Kandace is a ekuk of the [facility] and is followed by endocrinology and primary care there, has longstanding type 1 diabetes, now on an insulin pump for the past month and is having some issues with hypoglycemia and some hypotension. She and her have a home here in [place] and visits for a week every month or so and are currently in the process of visiting when she was struck with the event of yesterday characterized by the onset of severe cramping of her left leg in the morning and then by a syncopal event of very brief duration unaccompanied by any obvious signs of hypoglycemia and not by any documentation of significant hypoglycemia and associated with loss of consciousness or at least awareness measured in seconds and emergence from this state with a left hemimotor hemisensory syndrome which cleared and then the development of a headache later. She admits that she has had migraine-like attacks in the past during which she has had some paresthesias in the left side of her face and arm but this particular event would be atypical and she has also had other migraine events without associated paresthesias, although she admits now that occasionally she has had some visual issues. On this occasion, however, there was no evidence of visual loss. Initially, the stroke team was called, but her NIH score improved to 0, gross imaging studies including CT and duplex of the carotids was unremarkable and she was admitted and subsequently has had an MRI, MRA, echocardiogram, etc., none of which have shown any evidence for a completed stroke, significant intracranial stenoses or source for a cardiogenic emboli at least to date. She is back to baseline, but is having some problems with both blood pressure and hypoglycemia, but these are chronic issues and nothing particularly acute and she is able to handle them. PAST MEDICAL HISTORY: Does reveal an ectopic , insulin-dependent diabetes, T\T\A, and a section and the insulin pump. FAMILY HISTORY: Strongly positive for strokes in her mother. SOCIAL HISTORY: Reveals her to be a former smoker, not a consumer of ethanol. Lives with her family and visits [place] about a week of every month actually she and her have a home here. Most of her medical care; however, is rendered in [facility]. MEDICATIONS: The only medications include insulin via pump and she takes nothing else, although she is now going to be on a baby aspirin a day. REVIEW OF SYSTEMS: Obtained in the ER and reviewed by me today was basically unremarkable in terms revealing no systemic illnesses. No new issues of her head, eyes, ears, nose and throat, cardiovascular, pulmonary, gastrointestinal, genitourinary, or musculoskeletal systems. 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 She also from a neurologic point of view, has a history of migraines with some left hemisensory predominant in the past and with visual aura as well, but the activity of the migraines have been very quiescent over the past several years. The headache she had after her events cleared is similar, but not as severe as her general migraines and she attributed it to lack of caffeine. It has now cleared completely as has her exam. PHYSICAL EXAMINATION: GENERAL: A general physical examination in the Emergency Room was unremarkable. VITAL SIGNS: Earlier, blood pressure 118/80, pulse 81 and regular, respirations are 18. She was moderately over nourished. She was in no obvious distress after her deficits cleared. HEENT exam, cardiovascular exam, pulmonary exam, abdominal exam and examination of extremities was unremarkable. NEUROLOGIC: Today neurologically she is awake, alert, oriented in 3 spheres. She has normal extraocular movements. No nystagmus. Normal pupils, poorly seen fundi, normal visual haro, normal facial motility and strength. Normal facial sensation, clear speech. There is no drift or pronation sign, tremor, tics or choreiform activity. She can stand and walk without ataxia or spasticity. Reflexes are actually normally active despite her longstanding diabetes. Toes are downgoing. No Nicole's signs are seen. Strength is normal and sensation is surprisingly intact to vibration, light touch and temperature over the distal feet. IMAGING STUDIES: As noted above have subsequently proven to be negative. There are some very tiny punctate white matter lesions in the frontal lobes bilaterally which may be sequela of prior microvascular disease or even sequela of migraines in this woman with a history thereof. But of importance is the fact there is no acute vascular event involving the right hemisphere which would be the most likely source based on her history and there is no intracranial vascular disease on echocardiogram source of emboli. ASSESSMENT AND PLAN: I am not sure what this was. It could have been a complicated migraine. I think we have to in this setting; however, assume it was a transient ischemic attack and treat her with aspirin. Unfortunately, with the brief loss of consciousness, the [place] stroke neurology team felt that her license needed to be turned into her state and the [facility] is going to apparently receive a copy of this event. I am not sure of the legalities in the [facility] regarding episodes of loss of consciousness and this is an issue that going to have to be addressed by her primary care and retail and restaurant associate in the future as I suspect her license will at least be revoked for a bit. I do not think this was a seizure. I do not feel she needs to have an EEG or her discharge can be delayed to get an EEG, but this is something that might be considered on an outpatient basis by her primary care group and her retail and restaurant associate when she returns to [place]. For now then neurology only recommends she be discharged on aspirin and follow up with her primary care and endocrinology team and if necessary neurologist in her home state depending on the feelings of her retail and restaurant associate and primary care group. DAGMAR
[2016-09-24] MEDS: TRAMADOL HCL 50 MG TAB PO PRN (13:41)
[2016-09-24] MEDS ORDERED: ASPEC81 PO (14:02)
--- NOTE | 2016-09-24 14:18 | Discharge Instructions ---
Discharge Instructions Date of Service Sep 24, 2016. Admission Reason for Admission: Left-Sided Weakness Discharge Discharge Diagnosis / Problem: LEFT SIDED WEAKNESS/PARESTHESIAE/DYSARTHRIA, INSULIN DEPENDENT DIABETES Discharge Goals Goal(s): Decrease discomfort, Improve function, Improve disease control Activity Recommendations Activity Limitations: resume your previous activity (as tolerated) . Instructions / Follow-Up Instructions / Follow-Up Please schedule a follow up appointment with your primary care provider in [place] Please schedule a follow up appointment with your superior court justice in [place] to adjust your insulin pump Monitor Blood sugar closely to avoid low blood sugar episodes. 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 Current Hospital Diet Patient's current hospital diet: Diabetes Type 1 Diet Discharge Diet Recommended Diet: Diabetes Type 1 Diet Pending Studies Studies pending at discharge: no Laboratory Results Hemoglobin A1c Test 09/23/16 10:53 Range/Units Estimated Average Glucose 174 mg/dl Hemoglobin A1c 7.7 H 4.5-5.6 % Lipid Panel Test 09/24/16 05:28 Range/Units Triglycerides Level 75 0-150 mg/dl Cholesterol Level 192 0-200 mg/dl HDL Cholesterol 47 mg/dl Cholesterol/HDL Ratio 4.1 LDL Cholesterol, Calculated 130 mg/dl Medical Emergencies . Who to Call and When: Medical Emergencies: If at any time you feel your situation is an emergency, please call 911 immediately. . Non-Emergent Contact Non-Emergency issues call your: Primary Care Provider . . "Provider Documentation" section prepared by Rani Arellano. . VTE Core Measure Inpt VTE Proph given/why not?: Enoxaparin (Lovenox)SQ
--- NOTE | 2016-09-24 14:20 | Pharmacy Progress Note ---
Glycemic: Assessment & Plan Date of Service Sep 24, 2016. Assessment & Plan Assessment * 46 yo F with Type 1 diabetes from [place] * Insulin pump continued on admission. Per RN, pump is relatively new (~ 1 mo old) for the patient. She is being followed for her diabetes in [place]. * Significant hypoglycemia this AM with BSG's as low as 32 mg/dL * Spoke w RN - patient was awake, alert, and oriented despite significant hypoglycemia. Patient noted that this happens occasionally. Hypoglycemia protocol initiated. BSG's increased to 109 mg/dL. RN spoke w patient who also noted she has 2 settings on her pump for her basal (low vs. high). She was on the "high" setting. Switched to the "low" setting. See RN note for additional details * Spoke w MD - OK to continue patient's own pump, but with decreased basal Plan * Basal on pump decreased from "high" to "low" setting per RN * OK with continuing patient's own pump * No additional intervention required Pharmacy will continue to monitor patient daily and write orders per [facility] inpatient glycemic control protocol. Thanks. * Please note that the plan above was derived based on current level of insulin resistance and hospital stress. These recommendations are appropriate for inpatient admission only. Plan of care upon discharge will need to be reassessed to avoid potential outpatient hypo/hyperglycemia.
--- NOTE | 2016-09-24 14:32 | Discharge Summary ---
Discharge Summary Date of Service Sep 24, 2016. Discharge Summary Admission Date: Sep 23, 2016 at 12:42 Discharge Date: Sep 24, 2016 Discharge Disposition: Home Principal Diagnosis: LEFT SIDED WEAKNESS/PARESTHESIAE/DYSARTHRIA Secondary Diagnoses/Problems: INSULIN DEPENDENT DIABETES HYPOGLYCEMIA SYNCOPE Consultations: Neurology Medication Reconciliation New Medications: Aspirin (Aspirin EC Low Dose) 81 Mg Ectab 81 MG PO QAM for 30 Days Continued Medications: Insulin Aspart (novoLOG INSULIN PUMP ) 1 Ea Inj 1 EA N/A UD, EA Admission Information HPI (per Admitting provider): Patient seen and examined. 46 year old female with PMHx of DM1 on insulin pump and previous tobacco user presents to the ED complaining of left sided paralysis since prior to arrival. Patient reports she woke up this morning with a severe cramp in her left leg. She sat up and screamed out in pain. Her reports that he came over and she was reaching out for him, she then slumped over and was unresponsive for a few seconds. When she woke up she was noted to have some confusion, have slurred speech and a mild left facial droop. She complained of left sided numbness and her left upper and lower extremities were paralyzed. Her tried to take her blood sugar but couldn't get it to work. He called 911 and EMS arrived, at that time patient's BSG was 76. Patient states her symptoms began to improve but she still had some symptoms upon arrival to the ED. A stroke alert was called and during examination patient 's stroke score improved to 0. Currently the patient feels back at baseline. She reports she has a headache but that that happens when her blood sugar is low or high. She denies recent fevers, chills, URI symptoms, chest pain, SOB, nausea, vomiting, diarrhea, dysuria, calf pain and edema. She denies palpitations, tongue trauma, and incontinence. She denies any previous history of these symptoms. She reports a family history of TIAs. She does not take aspirin. In the ED VS were stable, BSG was as low as 63 and improved after orange juice. CT head was negative. She will be admitted for further workup and treatment. Physical Exam (per Admitting): General Appearance: + pertinent finding (Pleasant WD/WN 46 year old female lying in bed in NAD with family at bedside ) Head: normocephalic, atraumatic Eyes: PERRL, EOMI, sclerae normal ENT: hearing grossly normal, pharynx normal Neck: supple, no JVD Respiratory/Chest: chest non-tender, lungs clear, normal breath sounds, no respiratory distress, no accessory muscle use Cardiovascular: regular rate, rhythm, no edema, no gallop, no JVD, no murmur , normal peripheral pulses Abdomen/GI: normal bowel sounds, non tender, soft Back: normal inspection, no muscle spasm Extremities/Musculoskelatal: no calf tenderness, normal capillary refill, no pedal edema Neurologic/Psych: sewing inspector II-XII nml as tested, no motor/sensory deficits, alert , normal reflexes, oriented x 3, + pertinent finding (Finger to nose intact, good rapid alternating movement, no focal deficits ) Skin: normal color, warm/dry, no rash Lymphatic: no adenopathy Hospital Course LEFT SIDED WEAKNESS/PARESTHESIAE/DYSARTHRIA Possible related to vasovagal vs TIA vs hypoglycemic event Doubt about seizure Stroke R/O CT head negative MRI of Brain showed no acute intracranial abnormality Carotid U/S showed no evidence of a hemodynamically significant stenosis MRA of the brain showed No significant stenosis, occlusion, or aneurysm within the resighini of [place]. 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 Will discharge today if ok by neuro ECHO done The left ventricle is normal in size. * Left ventricular systolic function is normal. * Ejection Fraction = 65-70%. * The right ventricular systolic function is normal. * The left atrial size is normal. * Right atrial size is normal. * No significant valvular patrhology INSULIN DEPENDENT DIABETES Episodes of Hypoglycemia Pt said that she is new with the pump BSG AC HS Follows with Rosi Miller [place], [place] Pump setting adjusted to low Pt has an upcoming appt with her metallurgical analyst Monitor for hypoglycemic episodes SYNCOPE Most likely vasovagal episode. No arrhythmias. stable DVT PROPHYLAXIS: Sq lovenox CODE STATUS: FULL CODE Total time spent on discharge = 35 MINUTES This includes examination of the patient, discharge planning, medication reconciliation, and communication with other providers. Discharge Instructions Discharge Instructions Date of Service Sep 24, 2016. Admission Reason for Admission: Left-Sided Weakness Discharge Discharge Diagnosis / Problem: LEFT SIDED WEAKNESS/PARESTHESIAE/DYSARTHRIA, INSULIN DEPENDENT DIABETES Discharge Goals Goal(s): Decrease discomfort, Improve function, Improve disease control Activity Recommendations Activity Limitations: resume your previous activity (as tolerated) . Instructions / Follow-Up Instructions / Follow-Up Please schedule a follow up appointment with your primary care provider in [place] Please schedule a follow up appointment with your metallurgical analyst in [place] to adjust your insulin pump Monitor Blood sugar closely to avoid low blood sugar episodes. 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 Current Hospital Diet Patient's current hospital diet: Diabetes Type 1 Diet Discharge Diet Recommended Diet: Diabetes Type 1 Diet Pending Studies Studies pending at discharge: no Laboratory Results Hemoglobin A1c Test 09/23/16 10:53 Range/Units Estimated Average Glucose 174 mg/dl Hemoglobin A1c 7.7 H 4.5-5.6 % Lipid Panel Test 09/24/16 05:28 Range/Units Triglycerides Level 75 0-150 mg/dl Cholesterol Level 192 0-200 mg/dl HDL Cholesterol 47 mg/dl Cholesterol/HDL Ratio 4.1 LDL Cholesterol, Calculated 130 mg/dl Medical Emergencies . Who to Call and When: Medical Emergencies: If at any time you feel your situation is an emergency, please call 911 immediately. . Non-Emergent Contact Non-Emergency issues call your: Primary Care Provider . . "Provider Documentation" section prepared by Rani Arellano. . VTE Core Measure Inpt VTE Proph given/why not?: Enoxaparin (Lovenox)SQ
--- NOTE | 2016-09-25 23:56 | EDITING REQUIRED CODING QUERY ---
CODING QUERY To promote full compliance with coding requirements relating to patient care, provider participation is requested in all cases of supervisor fabrication and assembly uncertainty. Please assist us with the question(s) below: Coding Question(s): Dr. Arellano, Please clarify if TIA was: ( ) present and treated during this admission ( x ) ruled out ( ) other, please explain Physician's Response(s): Thank you for your time, ZAC Richardson, ROOF PLUMBER
== END 2016-09-24 15:13 | disposition home or self-care (01) | DRG 312 ==
LOC: ENRESERVTM → ENRESERVDT → C.EDA 10:27 → C.2T 12:42 → MERGE 12:42 → C.2T 13:24 → CMPBEDREQ 14:32
PROVIDERS: ADMIT Hospitalist; ATTEND Internal Medicine
DX: R55 Syncope and collapse (principal); R53.1 Weakness; R47.1 Dysarthria and anarthria; R20.9 Unspecified disturbances of skin sensation; R29.810 Facial weakness; M79.605 Pain in left leg; E10.649 Type 1 diabetes mellitus with hypoglycemia without coma; Z82.3 Family history of stroke; Z87.891 Personal history of nicotine dependence; Z96.41 Presence of insulin pump (external) (internal)

== ENCOUNTER 2025-05-07 19:09 | Inpatient (IN) ==
[2025-05-07] MEDS: PLASMA-LYTE A 1,000 ML IV ONE ×3 (19:33→21:49)
--- NOTE | 2025-05-07 19:45 | Emergency Department Note ---
Impression & Plan Severe sepsis, Acidosis, lactic, Diabetic ketoacidosis, Acute dehydration, Abdominal mass ED Provider Note NAME: JEFF CALLE AGE: 54 SEX: F : 1970 ARRIVES VIA: Walk-In INFORMANT: Patient, ED PROVIDER(S): Deo Morelos DO CHIEF COMPLAINT: abdominal pain, N/V HPI: This is a 54-year-old female with the PMHx of IDDM1, PAD/PVD and obesity presenting to [facility] for further evaluation of abdominal pain. Patient is accompanied by her who provide additional history. Patient reports that she has had ongoing abdominal pain over the last day or so. She states today this worsened. She describes it in the lower quadrants but worse on the right side. Patient states that she has had significant nausea and vomiting today. She states that she intermittently has had abdominal pain and constipation for many months. She states that she has diabetes and currently has an insulin pump in place. She states that this today. She notes that her glucose levels have been high. Patient states that she is never been in diabetic ketoacidosis. Patient reports abdominal surgical history including a cholecystectomy as well as 2 prior deliveries. Patient states that she has been taking Ozempic and recently increased the dose in the last 2 weeks. They deny fever or chills. No cough or congestion. Denies chest pain or palpitations. No shortness of breath. No urinary complaints. No recent changes in bowel movements. Patient denies recent changes in medications or OTC supplements. Patient offers no other complaints, today. ADDITIONAL HISTORY OBTAINED: Per HPI Chronic Medical/Social Conditions Affecting Care: Per HPI PAST MEDICAL HISTORY: See Below PAST SURGICAL HISTORY: See Below FAMILY HISTORY: See Below SOCIAL HISTORY: See Below HOME MEDICATIONS: See Below ALLERGIES: See Below VITALS: See Below PHYSICAL EXAMINATION: GENERAL: Sitting up in bed, alert, ill appearing, well nourished, no distress, non-toxic EYE EXAM: normal conjunctiva. PERRL and EOM's grossly intact. OROPHARYNX: no exudate, no erythema, lips, buccal mucosa, and tongue normal and mucous membranes are dry NECK: supple, no nuchal rigidity, no adenopathy, non-tender LUNGS: Clear to auscultation. Normal chest wall mechanics HEART: no murmurs, regular rate, regular rhythm ABDOMEN: There is some abdominal distention. Suprapubic and right lower quadrant tenderness to palpation with rebound. There is no rigidity. BACK: Back is symmetrical on inspection and there is no deformity, no midline tenderness, no CVA tenderness. SKIN: no rashes and no bruising. Pale. UPPER EXTREMITIES: upper extremities are grossly normal. LOWER EXTREMITIES: No pitting edema. NEURO EXAM: Normal sensorium, GCS 15, normal speech, no gross weakness of arms, no gross weakness of legs. MEDICAL DECISION MAKING: Differential diagnoses includes but not limited to DKA, acute dehydration, electrolyte derangements, appendicitis, bowel obstruction, diverticulitis, malignancy, nephrolithiasis, gastroenteritis, ACS, PNA, pancreatitis, hepatobiliary disease, UTI In summary, this is a 54 year old female who presented with abd pain, nausea and vomiting. Differential as above. Nursing notes and pertinent past medical records reviewed. Vital signs reviewed and the patient is intermittently hypotensive but otherwise afebrile and hemodynamically stable. Heart rate in the 90s to low 100s. Concern for SIRS response based on vital signs but would also consider significant dehydration and subsequent diabetic ketoacidosis secondary to her current GI illness. History and presentation revealed I do believe the patient likely has a viral or acute abdominal illness that has led to dehydration and subsequent DKA at this time. She is hyperglycemic. Will plan to evaluate with further lab workup for evaluation of diabetic ketoacidosis. Patient will begin IV fluid resuscitation as well as antiemetics. Physical examination revealed given her tenderness on exam and symptoms, I am also concerned for acute appendicitis that may have led to her presentation today. As a result of my initial evaluation, IV access was established and the patient was placed on CCRM. Therapeutics ordered include IVFR and IV Zofran. While obtaining lab work and providing supportive care, we will obtain a CT abdomen/pelvis for further evaluation of intra-abdominal pathology. Diagnostics interpreted by me include EKG and cardiac monitoring as listed below: -Cardiac Monitoring: An order was placed for continuous cardiac monitoring. The monitor shows a rate of 70-100s with regular rhythm. -ECG: normal sinus rhythm at a ventricular rate of [address] segment changes to suggest STEMI. Some depressions throughout the precordial leads. Numerous areas of artifact. Patient does have rightward axis. Patient completed laboratory studies and imaging. I-STAT chemistries were obtained for the purposes of expediting CT imaging. No significant kidney dysfunction. Does have a high anion gap metabolic acidosis present with hyperglycemia. IV fluid resuscitation as ordered. Results independently interpreted by me are leukocytosis which meets the patient's SIRS criteria. Blood cultures were obtained and broad-spectrum antibiotics with IV Zosyn started. Procalcitonin is mildly elevated. Patient's urinalysis shows glucose urea and ketonuria. She is acidotic. Patient meets criteria for diabetic ketoacidosis. Will continue IV fluid resuscitation while initiating further care for DKA with insulin drip. The patient was managed with approximately 3 L of IV crystalloid resuscitation and initiation of insulin drip starting after potassium replenishment. Patient was also given broad-spectrum antibiotics. No MRSA risk factors. CT abdomen/pelvis revealed a large cystic mass. Unclear etiology of this. While I do feel that this is contributing to the patient's symptoms, I do feel her symptoms are more likely related to acute dehydration and DKA at this time. Please see below for further discussions with consultants including [facility] gynecology and general surgery as well as [facility] gynecology and EGS. Ultimately, the decision was made to admit the patient for Acute gastrointestinal illness leading to acute dehydration with multiple electrolyte derangements and findings consistent with mild diabetic ketoacidosis complicated by large intra-abdominal mass that appears to be a complex cyst of unknown origin. I discussed the case with the hospitalist service via telephone/TigerText and they are agreeable to admit the patient to their services by [facility] Dr. Guy. Based on the above, including the patient's age, coexisting illnesses, labs, imaging, and exam findings the decision to treat as an inpatient. I discussed the patient with the hospitalist team who recommended admission to their services. They received the medications, treatments, interventions indicated above and their condition remained guarded. I discussed my findings with the patient and their family and they understand and agree with the treatment plan. All patient / family questions were answered to their satisfaction. Patient was discussed with general surgery who did arrive at the bedside to see the patient. They recommended following up with gynecology as they are concerned that this may be ovarian. Patient was discussed with Dr. Paniagua of [facility] [employer] who recommended that this could be malignancy and recommended transfer. Again touched base with EGS, who was agreeable to this. I discussed with the patient and her regarding possible transfer. They are agreeable to this. The patient has accepted [facility] as transfer. Will try to touch base with the EGS as well as gynecology as the patient's primary is unclear and she likely needs a multidisciplinary team. Patient would likely need ICU level care given her hemodynamic instability and mild DKA. [facility], Dr. Jackson, and [facility], Dr. Canchola, recommended medical therapy in regards to DKA and dehydration prior to any surgical intervention. Tumor markers added. Consults/Care Managements Discussions: Per MDM ER treatment provided: See above Procedures: None Critical Care: I have personally spent 45 minutes of critical care time in direct management of this patient. This includes bedside care, interpretation of diagnostic studies, and testing, discussion with consultants, patient, and family members, and other require inpatient management activities. This 45 minutes is in excess of all separately billable procedures. The chart was completed utilizing [employer] Speech voice recognition software. Grammatical errors, random word insertions, pronoun errors, and incomplete sentences are an occasional consequence of this system due to software limitations, ambient noise, and hardware issues. Any formal questions or concerns about the content, text, or information contained within the body of this dictation should be directly addressed to the physician for clarification. Past Med/Surg History Problem List (Updated 11/05/18 @ 09:18 by Taras Castillo RN) Abdominal mass (Acute) Acute dehydration (Acute) Diabetic ketoacidosis (Acute) Acidosis, lactic (Acute) Severe sepsis (Acute) Hypotension Abdominal pain COVID-19 (Acute) PAD (peripheral artery disease) Hx of ectopic (Chronic) Hx of tonsillectomy (Chronic) IDDM (insulin dependent diabetes mellitus) (Chronic) Left-sided weakness S/P section (Chronic) Medical History (Updated 05/08/25 @ 15:31 by Deo Morelos DO) Dyslipidemia HTN (hypertension) IDDM (insulin dependent diabetes mellitus) History of ectopic TIA (transient ischemic attack) Surgical History (Updated 11/05/18 @ 09:18 by Taras Castillo RN) History of History of tonsillectomy Social History Smoking Status: Former smoker Second Hand Exposure: No; Do You Dip or Chew Tobacco: No; Hx Alcohol Use: No Hx Substance Use: No Preferred Language: Hungarian Communication Ability: Effective Lithograph Operator Required: No Beliefs That Will Affect Care: None Current Living Situation: Spouse Feels Safe at Home: Yes Assistive Devices: None Allergies Allergies Allergy/AdvReac Type Severity Reaction Status Date / Time adhesive tape Allergy Intermediate Hives Verified 05/07/25 20:34 oxycodone AdvReac Severe Vomiting Verified 05/07/25 20:34 Home Meds Home Medications Medication Instructions Recorded Confirmed insulin lispro 100 unit/mL 100 unit continuous subcutaneous 11/06/18 05/07/25 subcutaneous solution (Humalog infusion DAILY U-100 Insulin) semaglutide 1 mg/dose (4 mg/3 mL) 0.25 mg subcut WK 07/31/22 05/07/25 subcutaneous pen injector (Ozempic) Lipitor 40 mg PO DAILY 05/08/25 05/08/25 Plavix 75 mg PO DAILY 05/08/25 05/08/25 Results & Data (ED) Vital Signs Vital Signs - 24 hr 05/07/25 19:11 05/07/25 19:18 05/07/25 19:21 Temperature 36.2 C L Temperature Source Oral Pulse Rate 95 H 95 H 93 H Pulse Rate [Finger] Pulse Rate from SpO2 Sensor Pulse Rhythm Pulse Rhythm [Finger] Pulse Strength [Finger] Respiratory Rate 19 18 Respiratory Effort / Characteristics Non-Labored Spontaneous Respiratory Depth Normal Blood Pressure 64/41 L 109/70 Blood Pressure [Right Arm] Blood Pressure Mean 48 95 Blood Pressure Mean [Right Arm] Blood Pressure Position [Right Arm] Pulse Oximetry 100 99 Oxygen Delivery Method Room Air Room Air Sepsis Recent Fever Within 48 Hours No Sepsis New/Unexplained Change in Mental Status No Sepsis Action Taken by Nursing No Action Required 05/07/25 19:30 05/07/25 19:31 05/07/25 19:37 Temperature 37.3 C Temperature Source Oral Pulse Rate 92 H 84 Pulse Rate [Finger] Pulse Rate from SpO2 Sensor 91 H Pulse Rhythm Regular Pulse Rhythm [Finger] Pulse Strength [Finger] Respiratory Rate 19 20 Respiratory Effort / Characteristics Respiratory Depth Blood Pressure 90/54 L Blood Pressure [Right Arm] Blood Pressure Mean 66 Blood Pressure Mean [Right Arm] Blood Pressure Position [Right Arm] Pulse Oximetry 100 100 Oxygen Delivery Method Room Air Sepsis Recent Fever Within 48 Hours Sepsis New/Unexplained Change in Mental Status Sepsis Action Taken by Nursing 05/07/25 19:38 05/07/25 19:42 05/07/25 19:51 Temperature Temperature Source Pulse Rate 86 74 87 Pulse Rate [Finger] Pulse Rate from SpO2 Sensor 75 86 Pulse Rhythm Pulse Rhythm [Finger] Pulse Strength [Finger] Respiratory Rate 20 16 16 Respiratory Effort / Characteristics Respiratory Depth Blood Pressure 109/66 116/66 126/69 Blood Pressure [Right Arm] Blood Pressure Mean 90 82 88 Blood Pressure Mean [Right Arm] Blood Pressure Position [Right Arm] Pulse Oximetry 99 100 100 Oxygen Delivery Method Room Air Sepsis Recent Fever Within 48 Hours Sepsis New/Unexplained Change in Mental Status Sepsis Action Taken by Nursing 05/07/25 20:06 05/07/25 20:12 05/07/25 20:21 Temperature Temperature Source Pulse Rate 104 H 108 H 108 H Pulse Rate [Finger] Pulse Rate from SpO2 Sensor 104 H 108 H 108 H Pulse Rhythm Pulse Rhythm [Finger] Pulse Strength [Finger] Respiratory Rate 16 18 21 Respiratory Effort / Characteristics Respiratory Depth Blood Pressure 108/44 L 98/79 L 115/71 Blood Pressure [Right Arm] Blood Pressure Mean 65 85 85 Blood Pressure Mean [Right Arm] Blood Pressure Position [Right Arm] Pulse Oximetry 100 100 95 Oxygen Delivery Method Sepsis Recent Fever Within 48 Hours Sepsis New/Unexplained Change in Mental Status Sepsis Action Taken by Nursing 05/07/25 20:30 05/07/25 20:42 05/07/25 20:50 Temperature Temperature Source Pulse Rate 108 H 100 H Pulse Rate [Finger] Pulse Rate from SpO2 Sensor 108 H Pulse Rhythm Pulse Rhythm [Finger] Pulse Strength [Finger] Respiratory Rate 24 22 Respiratory Effort / Characteristics Respiratory Depth Blood Pressure 104/62 93/46 L 67/43 L Blood Pressure [Right Arm] Blood Pressure Mean 76 61 51 Blood Pressure Mean [Right Arm] Blood Pressure Position [Right Arm] Pulse Oximetry 100 95 Oxygen Delivery Method Room Air Sepsis Recent Fever Within 48 Hours Sepsis New/Unexplained Change in Mental Status Sepsis Action Taken by Nursing 05/07/25 20:51 05/07/25 20:51 05/07/25 21:00 Temperature Temperature Source Pulse Rate 92 H 92 H Pulse Rate [Finger] Pulse Rate from SpO2 Sensor 89 92 H Pulse Rhythm Pulse Rhythm [Finger] Pulse Strength [Finger] Respiratory Rate 13 19 Respiratory Effort / Characteristics Respiratory Depth Blood Pressure 75/42 L 75/42 L 94/50 L Blood Pressure [Right Arm] Blood Pressure Mean 53 53 64 Blood Pressure Mean [Right Arm] Blood Pressure Position [Right Arm] Pulse Oximetry 96 97 Oxygen Delivery Method Sepsis Recent Fever Within 48 Hours Sepsis New/Unexplained Change in Mental Status Sepsis Action Taken by Nursing 05/07/25 21:10 05/07/25 21:12 05/07/25 21:20 Temperature Temperature Source Pulse Rate 96 H Pulse Rate [Finger] 98 H Pulse Rate from SpO2 Sensor 96 H Pulse Rhythm Pulse Rhythm [Finger] Regular Pulse Strength [Finger] Normal Respiratory Rate 19 20 Respiratory Effort / Characteristics Non-Labored Spontaneous Respiratory Depth Normal Blood Pressure 88/52 L Blood Pressure [Right Arm] 78/45 L Blood Pressure Mean 72 Blood Pressure Mean [Right Arm] 56 Blood Pressure Position [Right Arm] Lying Pulse Oximetry 98 98 Oxygen Delivery Method Room Air Sepsis Recent Fever Within 48 Hours Sepsis New/Unexplained Change in Mental Status Sepsis Action Taken by Nursing 05/07/25 21:20 05/07/25 21:25 05/07/25 21:30 Temperature Temperature Source Pulse Rate 98 H Pulse Rate [Finger] Pulse Rate from SpO2 Sensor 98 H Pulse Rhythm Pulse Rhythm [Finger] Pulse Strength [Finger] Respiratory Rate 19 Respiratory Effort / Characteristics Respiratory Depth Blood Pressure 78/45 L 89/47 L 88/46 L Blood Pressure [Right Arm] Blood Pressure Mean 53 63 60 Blood Pressure Mean [Right Arm] Blood Pressure Position [Right Arm] Pulse Oximetry 97 Oxygen Delivery Method Sepsis Recent Fever Within 48 Hours Sepsis New/Unexplained Change in Mental Status Sepsis Action Taken by Nursing 05/07/25 21:40 05/07/25 23:23 Temperature Temperature Source Pulse Rate 99 H 111 H Pulse Rate [Finger] Pulse Rate from SpO2 Sensor Pulse Rhythm Pulse Rhythm [Finger] Pulse Strength [Finger] Respiratory Rate 17 Respiratory Effort / Characteristics Respiratory Depth Blood Pressure 93/47 L Blood Pressure [Right Arm] Blood Pressure Mean 59 Blood Pressure Mean [Right Arm] Blood Pressure Position [Right Arm] Pulse Oximetry 98 Oxygen Delivery Method Sepsis Recent Fever Within 48 Hours Sepsis New/Unexplained Change in Mental Status Sepsis Action Taken by Nursing Laboratory Data 05/08/25 03:27 05/08/25 13:06 Lab Results 05/07/25 05/07/25 05/07/25 Range/Units 19:35 19:36 19:37 WBC 17.42 H (4.8-10.8) K/ul RBC 4.12 L (4.20-5.40) M/uL Hgb 12.8 (12.0-16.0) g/dL POC Hgb 13.6 (12.0-16.0) g/dl Hct 38.2 (37.0-47.0) % POC Hct 40 (37-47) % MCV 92.7 (80.0-100.0) fL MCH 31.1 (25.0-34.0) pg MCHC 33.5 (32.0-36.0) g/dL RDW Std Deviation 49.0 H (36.4-46.3) fL RDW Coeff of Raheel 14.4 (11.5-14.5) % Plt Count 301 (130-400) K/uL MPV 9.7 (9.4-12.4) fL Immature Gran % (Auto) 0.5 % Neut % (Auto) 90.4 % Lymph % (Auto) 5.5 % Eaton % (Auto) 3.4 % Eos % (Auto) 0.0 % Baso % (Auto) 0.2 % Neut # (Auto) 15.73 H (1.40-6.50) K/uL Lymph # (Auto) 0.96 L (1.20-3.40) K/uL Eaton # (Auto) 0.60 H (0.11-0.59) K/uL Eos # (Auto) 0.00 (0.00-0.50) K/uL Baso # (Auto) 0.04 (0.00-0.20) K/uL Immature Gran # (Auto) 0.09 (0.01-0.20) K/uL RBC Morphology Unremarkable VBG pH (7.36-7.41) VBG pCO2 (38-50) mmHg VBG pO2 mmHg VBG HCO3 mmol/L VBG O2 Saturation % VBG Base Excess mEq/L POC Sodium 139 (135-144) mmol/L Sodium 137 (136-145) mmol/L POC Potassium 4.5 (3.3-5.0) mmol/L Potassium 4.5 (3.5-5.1) mmol/L POC Chloride 104 (101-112) mmol/L Chloride 100 (98-107) mmol/L Carbon Dioxide 14 L (21-32) mmol/L POC Total CO2 15 L (24-31) mmol/L Anion Gap 23 H (3-11) POC Anion Gap 25.0 (16-25) mmol/L POC BUN 13 (7-18) mg/dl BUN 14 (6-23) mg/dl Creatinine 1.07 (0.6-1.2) mg/dl POC Creatinine 1.0 (0.6-1.3) mg/dl Est Cr Clr Drug Dosing Not Reportable eGFR 60.96 BUN/Creatinine Ratio 13.1 (10-20) Glucose 387 H* (70-99(Fasting)) mg/dl POC Glucose (70-99) mg/dl POC Glucose (other) 360 H* (70-99) mg/dl Osmolality 314 H (280-300) mOsm/kg Lactate (0.4-2.0) mmol/L Calcium 9.5 (8.6-10.3) mg/dl POC Ioniz Calcium Latoya 1.12 (1.12-1.32) mmol/l Magnesium 1.8 (1.7-2.4) mg/dl Total Bilirubin 1.1 H (0.2-1.0) mg/dl Direct Bilirubin 0.2 (0-0.2) mg/dl AST 13 (13-39) U/L ALT 8 (7-52) U/L Alkaline Phosphatase 118 H (34-104) U/L Troponin I High Sens 2.6 (0-14) pg/ml Total Protein 7.6 (6.0-8.3) gm/dl Albumin 4.0 (3.4-5.0) gm/dl Procalcitonin 0.67 H (0-0.5) ng/ml Urine Color Urine Appearance (Clear) Urine pH (4.5-7.5) Ur Specific [place] (1.000-1.030) Urine Protein (Negative) Urine Glucose (UA) (Negative) Urine Ketones (Negative) Urine Blood (Negative) Urine Nitrite (Negative) Urine Bilirubin (Negative) Urine Urobilinogen (Negative) Ur Leukocyte Esterase (Negative) Urine Comment Blood Type A Positive Antibody Screen NEGATIVE 05/07/25 05/07/25 05/07/25 Range/Units 20:44 20:45 21:55 WBC (4.8-10.8) K/ul RBC (4.20-5.40) M/uL Hgb (12.0-16.0) g/dL POC Hgb (12.0-16.0) g/dl Hct (37.0-47.0) % POC Hct (37-47) % MCV (80.0-100.0) fL MCH (25.0-34.0) pg MCHC (32.0-36.0) g/dL RDW Std Deviation (36.4-46.3) fL RDW Coeff of Raheel (11.5-14.5) % Plt Count (130-400) K/uL MPV (9.4-12.4) fL Immature Gran % (Auto) % Neut % (Auto) % Lymph % (Auto) % Eaton % (Auto) % Eos % (Auto) % Baso % (Auto) % Neut # (Auto) (1.40-6.50) K/uL Lymph # (Auto) (1.20-3.40) K/uL Eaton # (Auto) (0.11-0.59) K/uL Eos # (Auto) (0.00-0.50) K/uL Baso # (Auto) (0.00-0.20) K/uL Immature Gran # (Auto) (0.01-0.20) K/uL RBC Morphology VBG pH (7.36-7.41) VBG pCO2 (38-50) mmHg VBG pO2 mmHg VBG HCO3 mmol/L VBG O2 Saturation % VBG Base Excess mEq/L POC Sodium (135-144) mmol/L Sodium (136-145) mmol/L POC Potassium (3.3-5.0) mmol/L Potassium (3.5-5.1) mmol/L POC Chloride (101-112) mmol/L Chloride (98-107) mmol/L Carbon Dioxide (21-32) mmol/L POC Total CO2 (24-31) mmol/L Anion Gap (3-11) POC Anion Gap (16-25) mmol/L POC BUN (7-18) mg/dl BUN (6-23) mg/dl Creatinine (0.6-1.2) mg/dl POC Creatinine (0.6-1.3) mg/dl Est Cr Clr Drug Dosing eGFR BUN/Creatinine Ratio (10-20) Glucose (70-99(Fasting)) mg/dl POC Glucose (70-99) mg/dl POC Glucose (other) (70-99) mg/dl Osmolality (280-300) mOsm/kg Lactate 4.9 H* 4.3 H* (0.4-2.0) mmol/L Calcium (8.6-10.3) mg/dl POC Ioniz Calcium Latoya (1.12-1.32) mmol/l Magnesium (1.7-2.4) mg/dl Total Bilirubin (0.2-1.0) mg/dl Direct Bilirubin (0-0.2) mg/dl AST (13-39) U/L ALT (7-52) U/L Alkaline Phosphatase (34-104) U/L Troponin I High Sens (0-14) pg/ml Total Protein (6.0-8.3) gm/dl Albumin (3.4-5.0) gm/dl Procalcitonin (0-0.5) ng/ml Urine Color Yellow Urine Appearance Clear (Clear) Urine pH 5.5 (4.5-7.5) Ur Specific [place] 1.040 H (1.000-1.030) Urine Protein Negative (Negative) Urine Glucose (UA) 3+ H (Negative) Urine Ketones 4+ H (Negative) Urine Blood Negative (Negative) Urine Nitrite Negative (Negative) Urine Bilirubin Negative (Negative) Urine Urobilinogen Negative (Negative) Ur Leukocyte Esterase Negative (Negative) Urine Comment Blood Type Antibody Screen 05/07/25 05/07/25 05/07/25 Range/Units 22:41 22:49 23:51 WBC (4.8-10.8) K/ul RBC (4.20-5.40) M/uL Hgb (12.0-16.0) g/dL POC Hgb (12.0-16.0) g/dl Hct (37.0-47.0) % POC Hct (37-47) % MCV (80.0-100.0) fL MCH (25.0-34.0) pg MCHC (32.0-36.0) g/dL RDW Std Deviation (36.4-46.3) fL RDW Coeff of Raheel (11.5-14.5) % Plt Count (130-400) K/uL MPV (9.4-12.4) fL Immature Gran % (Auto) % Neut % (Auto) % Lymph % (Auto) % [place] % (Auto) % Eos % (Auto) % Baso % (Auto) % Neut # (Auto) (1.40-6.50) K/uL Lymph # (Auto) (1.20-3.40) K/uL [place] # (Auto) (0.11-0.59) K/uL Eos # (Auto) (0.00-0.50) K/uL Baso # (Auto) (0.00-0.20) K/uL Immature Gran # (Auto) (0.01-0.20) K/uL RBC Morphology VBG pH 7.18 L (7.36-7.41) VBG pCO2 31 L (38-50) mmHg VBG pO2 48 mmHg VBG HCO3 12 mmol/L VBG O2 Saturation 75.7 % VBG Base Excess -15.5 mEq/L POC Sodium (135-144) mmol/L Sodium 138 (136-145) mmol/L POC Potassium (3.3-5.0) mmol/L Potassium 4.8 (3.5-5.1) mmol/L POC Chloride (101-112) mmol/L Chloride 100 (98-107) mmol/L Carbon Dioxide 11 L (21-32) mmol/L POC Total CO2 (24-31) mmol/L Anion Gap 27 H (3-11) POC Anion Gap (16-25) mmol/L POC BUN (7-18) mg/dl BUN 15 (6-23) mg/dl Creatinine 1.02 (0.6-1.2) mg/dl POC Creatinine (0.6-1.3) mg/dl Est Cr Clr Drug Dosing 64.4 eGFR 64.57 BUN/Creatinine Ratio 14.7 (10-20) Glucose 464 H* (70-99(Fasting)) mg/dl POC Glucose 420 H* 345 H* (70-99) mg/dl POC Glucose (other) (70-99) mg/dl Osmolality (280-300) mOsm/kg Lactate (0.4-2.0) mmol/L Calcium 8.2 L (8.6-10.3) mg/dl POC Ioniz Calcium Latoya (1.12-1.32) mmol/l Magnesium (1.7-2.4) mg/dl Total Bilirubin (0.2-1.0) mg/dl Direct Bilirubin (0-0.2) mg/dl AST (13-39) U/L ALT (7-52) U/L Alkaline Phosphatase (34-104) U/L Troponin I High Sens (0-14) pg/ml Total Protein (6.0-8.3) gm/dl Albumin (3.4-5.0) gm/dl Procalcitonin (0-0.5) ng/ml Urine Color Urine Appearance (Clear) Urine pH (4.5-7.5) Ur Specific [place] (1.000-1.030) Urine Protein (Negative) Urine Glucose (UA) (Negative) Urine Ketones (Negative) Urine Blood (Negative) Urine Nitrite (Negative) Urine Bilirubin (Negative) Urine Urobilinogen (Negative) Ur Leukocyte Esterase (Negative) Urine Comment Blood Type Antibody Screen Administered Medications Clopidogrel Bisulfate (Clopidogrel Bisulfate 75 Mg Tab) 75 mg PO DAILY [facility] Stop: 06/07/25 08:59 Last Admin: 05/08/25 10:54 Dose: 75 mg Documented By: DENY Enoxaparin Sodium (Enoxaparin Inj 40 Mg/0.4 Ml Syr) 40 mg SQ QAM [facility] Stop: 06/07/25 08:59 Last Admin: 05/08/25 09:50 Dose: 40 mg Documented By: DENY Promethazine HCl (Phenergan) 6.25 mg in 50.25 mls @ 201 mls/hr IV Q6H PRN PRN Reason: Nausea And Vomiting Stop: 06/07/25 01:18 Last Infusion: 05/08/25 10:27 Dose: Infused Documented By: Admin: 05/08/25 10:12 Dose: 201 mls/hr Documented By: DENY Piperacillin Sod/Tazobactam Sod (Zosyn) 4.5 gm in 100 mls @ 25 mls/hr IV Q8H [facility]; Protocol Stop: 05/10/25 03:59 Last Admin: 05/08/25 12:12 Dose: 25 mls/hr Documented By: Infusion: 05/08/25 08:14 Dose: Infused Documented By: Admin: 05/08/25 04:09 Dose: 25 mls/hr Documented By: JOSE A Dextrose/Lactated Ringer's (D5w And Lactated Ringers) 1,000 mls @ 80 mls/hr IV .[id number] [facility] Stop: 05/11/25 14:14 Last Admin: 05/08/25 14:31 Dose: 80 mls/hr Documented By: DENY Potassium Phosphate 15 mmol/ (Dextrose) 255 mls @ 85 mls/hr IV ONE ONE Stop: 05/08/25 17:29 Last Admin: 05/08/25 14:50 Dose: 85 mls/hr Documented By: DENY Miscellaneous (Continuous Glucose Monitor) 0 each N/A ACHS KACY Stop: 06/07/25 11:29 Last Admin: 05/08/25 13:21 Dose: 1 each Documented By: DENY Discontinued Medications Parenteral Electrolytes (Plasma-Lyte A Ph 7.4) 1,000 mls @ 999 mls/hr IV .Q1H1M ONE Stop: 05/07/25 20:16 Last Infusion: 05/07/25 20:44 Dose: Infused Documented By: Admin: 05/07/25 19:33 Dose: 999 mls/hr Documented By: MAHAD Piperacillin Sod/Tazobactam Sod (Zosyn) 4.5 gm in 100 mls @ 200 mls/hr IV NOW ONE; Protocol Stop: 05/07/25 19:48 Last Infusion: 05/07/25 20:44 Dose: Infused Documented By: Admin: 05/07/25 20:06 Dose: 200 mls/hr Documented By: ANDRZEJ Parenteral Electrolytes (Plasma-Lyte A Ph 7.4) 1,000 mls @ 999 mls/hr IV .Q1H1M ONE Stop: 05/07/25 21:00 Last Infusion: 05/07/25 21:49 Dose: Infused Documented By: Admin: 05/07/25 20:37 Dose: 999 mls/hr Documented By: MAHAD Potassium Chloride (K Elvis / Wtr) 10 meq in 100 mls @ 100 mls/hr IV Q1H KACY Stop: 05/08/25 00:14 Last Infusion: 05/08/25 03:16 Dose: Infused Documented By: JOSE A Admin: 05/08/25 01:52 Dose: 100 mls/hr Documented By: Infusion: 05/08/25 01:40 Dose: Infused Documented By: Admin: 05/07/25 23:59 Dose: 100 mls/hr Documented By: Infusion: 05/07/25 23:59 Dose: Infused Documented By: Admin: 05/07/25 22:36 Dose: 100 mls/hr Documented By: NAW Insulin Human Regular 250 (units/ Sodium Chloride) 250 mls @ 5 mls/hr IV .Q24H [facility]; Protocol Stop: 05/08/25 21:14 Last Titration: 05/08/25 13:00 Dose: Infused Documented By: DENY Co-signed By: MECHE Titration: 05/08/25 12:00 Dose: 3.8 units/hr, 3.8 mls/hr Documented By: DENY Co-signed By: RADHAS Titration: 05/08/25 11:00 Dose: 4.8 units/hr, 4.8 mls/hr Documented By: DENY Co-signed By: RADHAS Titration: 05/08/25 10:00 Dose: 6 units/hr, 6 mls/hr Documented By: DENY Co-signed By: RADHAM Titration: 05/08/25 09:00 Dose: 6 units/hr, 6 mls/hr Documented By: DENY Co-signed By: RADHAM Titration: 05/08/25 08:00 Dose: 5 units/hr, 5 mls/hr Documented By: DENY Co-signed By: MIKAYLA Titration: 05/08/25 07:08 Dose: 5 units/hr, 5 mls/hr Documented By: DENY Co-signed By: JOSE A Titration: 05/08/25 05:17 Dose: 4.2 units/hr, 4.2 mls/hr Documented By: JOSE A Co-signed By: bharath Titration: 05/08/25 04:00 Dose: 3 units/hr, 3 mls/hr Documented By: JOSE A Co-signed By: bharath Titration: 05/08/25 03:30 Dose: 2.5 units/hr, 2.5 mls/hr Documented By: JOSE A Co-signed By: bharath Titration: 05/08/25 03:00 Dose: 0 units/hr, 0 mls/hr Documented By: JOSE A Co-signed By: bharath Titration: 05/08/25 01:57 Dose: 6.7 units/hr, 6.7 mls/hr Documented By: SOHEILA Co-signed By: JT Titration: 05/08/25 00:47 Dose: 6.7 units/hr, 6.7 mls/hr Documented By: SOHEILA Co-signed By: RODRIGUEZ Titration: 05/07/25 23:45 Dose: 6.7 units/hr, 6.7 mls/hr Documented By: SOHEILA Co-signed By: paco Admin: 05/07/25 22:36 Dose: 6.7 units/hr, 6.7 mls/hr Documented By: MAHAD Co-signed By: SARAI Parenteral Electrolytes (Plasma-Lyte A Ph 7.4) 1,000 mls @ 999 mls/hr IV .Q1H1M ONE Stop: 05/07/25 22:32 Last Infusion: 05/07/25 23:59 Dose: Infused Documented By: Admin: 05/07/25 21:49 Dose: 999 mls/hr Documented By: MAHAD Lactated Ringer's (Lr) 1,000 mls @ 500 mls/hr IV .Q2H STA Stop: 05/08/25 02:05 Last Infusion: 05/08/25 03:16 Dose: Infused Documented By: JOSE A Admin: 05/08/25 01:40 Dose: 500 mls/hr Documented By: SOHEILA Magnesium Sulfate/Dextrose (Magnesium Sulfate / D5w) 1 gm in 100 mls @ 50 mls/hr IV ONE STA Stop: 05/08/25 02:21 Last Infusion: 05/08/25 05:12 Dose: Infused Documented By: JOSE A Admin: 05/08/25 03:03 Dose: 50 mls/hr Documented By: JOSE A Daptomycin 500 mg/ Syringe 10 mls @ 5 mls/min IV NOW STA; Protocol Stop: 05/08/25 01:24 Last Admin: 05/08/25 01:34 Dose: 5 mls/min Documented By: jeremy Promethazine HCl (Phenergan) 6.25 mg in 50.25 mls @ 201 mls/hr IV NOW STA Stop: 05/08/25 01:33 Last Infusion: 05/08/25 02:05 Dose: Infused Documented By: Admin: 05/08/25 01:47 Dose: 201 mls/hr Documented By: SOHEILA Dextrose/Lactated Ringer's (D5w And Lactated Ringers) 1,000 mls @ 200 mls/hr IV .Q5H [facility] Stop: 05/11/25 03:29 Last Admin: 05/08/25 09:28 Dose: Not Given Documented By: Infusion: 05/08/25 09:28 Dose: Infused Documented By: Infusion: 05/08/25 04:21 Dose: 200 mls/hr Documented By: JOSE A Admin: 05/08/25 03:03 Dose: 250 mls/hr Documented By: JOSE A Potassium Phosphate 15 mmol/ (Sodium Chloride) 255 mls @ 88 mls/hr IV ONE ONE Stop: 05/08/25 11:53 Last Infusion: 05/08/25 12:56 Dose: Infused Documented By: Admin: 05/08/25 09:52 Dose: 88 mls/hr Documented By: DENY Lactated Ringer's (Lr) 1,000 mls @ 100 mls/hr IV .Q10H [facility] Stop: 05/11/25 09:29 Last Admin: 05/08/25 10:30 Dose: 100 mls/hr Documented By: DENY Vancomycin HCl 1,500 mg/ (Sodium Chloride) 530 mls @ 200 mls/hr IV NOW ONE Stop: 05/08/25 13:38 Last Infusion: 05/08/25 14:56 Dose: Infused Documented By: Admin: 05/08/25 12:12 Dose: 200 mls/hr Documented By: DENY Calcium Gluconate () 1,000 mg in 60 mls @ 240 mls/hr IV Q15M [facility] Stop: 05/08/25 11:29 Last Infusion: 05/08/25 13:08 Dose: Infused Documented By: Admin: 05/08/25 12:53 Dose: 240 mls/hr Documented By: Infusion: 05/08/25 12:32 Dose: Infused Documented By: Admin: 05/08/25 12:17 Dose: 240 mls/hr Documented By: DENY Sodium Chloride (Nss) 500 mls @ 999 mls/hr IV .Q31M ONE Stop: 05/08/25 15:07 Last Admin: 05/08/25 14:47 Dose: 999 mls/hr Documented By: DENY Insulin Aspart (Insulin Aspart Per Unit Charge) 0 units SC ACHS KACY Stop: 05/08/25 21:00 Last Admin: 05/08/25 13:29 Dose: Not Given Documented By: Admin: 05/08/25 08:14 Dose: Not Given Documented By: DENY Insulin Aspart (Insulin, Rapid-Acting Pump) 0 each SC ACHS [facility]; Protocol Stop: 06/07/25 09:14 Last Admin: 05/08/25 13:20 Dose: Not Given Documented By: DENY Insulin Human Regular (Novolin-R Bolus From Bag) 6 units IV ONE ONE Stop: 05/07/25 21:31 Last Admin: 05/07/25 22:36 Dose: 6 units Documented By: MAHAD Co-signed By: SARAI Insulin Pump (Dc Home Insulin Pump) 1 each N/A NOW STA Stop: 05/07/25 21:03 Last Admin: 05/07/25 21:07 Dose: Not Given Documented By: MAHAD Ioversol (Optiray 320 100ml) 90 ml IV ONCE ONE Stop: 05/07/25 19:57 Last Admin: 05/07/25 19:56 Dose: 90 ml Documented By: RIZWANA Ketorolac Tromethamine (Ketorolac Tromethamine 15 Mg/Ml Vial) 10 mg IV NOW STA Stop: 05/08/25 01:24 Last Admin: 05/08/25 01:46 Dose: 10 mg Documented By: SOHEILA Hudson (Stat Iv Infusion Titration Per Protocol) 1 each N/A NOW STA Stop: 05/07/25 21:03 Last Admin: 05/08/25 00:48 Dose: Not Given Documented By: SOHEILA Hudson (Dka Goal Range 150-250 Mg/Dl) 1 each N/A ONE ONE Stop: 05/07/25 21:03 Last Admin: 05/08/25 00:48 Dose: Not Given Documented By: SOHEILA Morphine Sulfate (Morphine Sulfate 4 Mg/Ml 1 Ml Carp\Vial) 4 mg IV NOW STA Stop: 05/07/25 20:08 Last Admin: 05/07/25 20:37 Dose: 4 mg Documented By: MAHDA Ondansetron HCl (Ondansetron Inj 2 Mg/Ml 2 Ml Vial) 4 mg IV NOW STA Stop: 05/07/25 19:46 Last Admin: 05/07/25 19:49 Dose: 4 mg Documented By: MAHAD Imaging Data Radiologist's Impression: Chest X-Ray 05/07/25 19:16 Chest radiograph, one view History: Sepsis Comparison: None Findings: Single AP view of the chest performed. No focal consolidation or pleural effusion. No pneumothorax. The cardiomediastinal silhouette is within normal limits. Normal pulmonary vascularity. No evidence for lymphadenopathy. No visualized bony or soft tissue abnormality. Impression: Normal chest radiograph Electronically signed by Rafita King 05-07-2025 7:49 PM Abdomen/Pelvis CT 05/07/25 19:19 Exam(s): CT ABDOMEN + PELVIS With Contrast IV Amt: 90 ml optiray 320 EXAM: CT Abdomen and Pelvis With Intravenous Contrast CLINICAL HISTORY: Reason for exam: eval for appendicitis. TECHNIQUE: Axial computed tomography images of the abdomen and pelvis with intravenous contrast. CTDI is 14 mGy and DLP is 665 mGy-cm. Automated exposure control was utilized for the study. A dose lowering technique was utilized adhering to the principles of ALARA. CONTRAST: Patient received 90 ml optiray 320 of IV contrast COMPARISON: None FINDINGS: Lung bases: Unremarkable. No mass. No consolidation. ABDOMEN: Liver: Unremarkable. No mass. Gallbladder and bile ducts: Unremarkable. No calcified stones. No ductal dilation. Pancreas: Unremarkable. No mass. No ductal dilation. Spleen: Small splenule. Adrenals: Unremarkable. No mass. Kidneys and ureters: Unremarkable. No hydronephrosis or obstructing ureteral stone. Stomach and bowel: Evaluation of the stomach is limited by underdistention. No mucosal thickening. PELVIS: Appendix: Normal appendix. Bladder: Large lobulated cystic structure in the pelvis superior to the bladder measuring approximately 25.0 x 11.8 x 19.2 cm. Small amount of hyperdense material layering along the posterior inferior aspect of the structure. Etiology of the structure is not certain. Differential diagnosis includes ovarian versus gastrointestinal versus lymphatic cyst. Reproductive: Unremarkable as visualized. ABDOMEN and PELVIS: Intraperitoneal space: Small amount of ascites. No free air. Bones/joints: Degenerative change at L5-S1. No acute fracture. No dislocation. Soft tissues: Unremarkable. Vasculature: Phleboliths in the pelvis. Atherosclerotic changes of the vasculature. No abdominal aortic aneurysm or dissection. Lymph nodes: Unremarkable. No enlarged lymph nodes. IMPRESSION: 1. Normal appendix. 2. Small amount of ascites. 3. Large lobulated cystic structure in the pelvis superior to the bladder measuring approximately 25.0 x 11.8 x 19.2 cm. Small amount of hyperdense material layering along the posterior inferior aspect of the structure. Etiology of the structure is not certain. Differential diagnosis includes ovarian versus gastrointestinal versus lymphatic cyst. Electronically signed by: Carmen Martines M.D. 05/07/25 20:20 PM Pelvis Ultrasound 05/07/25 20:41 Exam(s): US PELVIS EXAM: US Pelvis Transabdominal, Complete CLINICAL HISTORY: Reason for exam: eval for ovarian pathology. OTHER: Other Notes: Pain. Hx of C-sections. Pt seems slightly confused but states no other pelvic surgeries. Postmenopausal. Uterus: 7.8x2.5x4.7cm. Limited visualization but appears unremarkable. ES: .3cm. Ovaries not visualized. There is a 22.9x11.2x18.0cm complex cystic area within pelvis. There appears to be a septation within. No vascular flow seen within. *Exam is very limited due to patient's pain-unable to apply pressure with patient being able to tolerate. Pt declined TV exam. TECHNIQUE: Real-time complete transabdominal pelvic ultrasound with image documentation. COMPARISON: 23 x 11.2 x 18 cm complex cystic structure within pelvis which is separate and distinct from the ovaries FINDINGS: Uterus/cervix: Unremarkable. Normal endometrial stripe thickness. No myometrial mass. Right ovary: Unremarkable. No mass. Normal arterial and venous blood flow. Left ovary: Unremarkable. No mass. Normal arterial and venous blood flow. Vagina: Patient declined transvaginal imaging. Free fluid: No free fluid. Bladder: Unremarkable as visualized. Wall is normal thickness for degree of distention. IMPRESSION: Limited exam Enlarged cystic ovary. Findings may represent cystic ovarian neoplasm. OB-METALWORKING SPECIALIST consult recommended for further evaluation. Electronically signed by: Félix Gallego MD 05/08/25 00:18 AM Discharge Plan Visit Data Chief Complaint: Abdominal Pain Stated Complaint: RT SIDE PAIN, VOMITING, NAUSEA ED Provider: Deo Morelos Discharge Problem: Severe sepsis, Acidosis, lactic, Diabetic ketoacidosis, Acute dehydration, Abdominal mass Patient Disposition: Admitted As Inpatient Condition: Serious Discharge Instructions Interventions: ED Discharge Assessment Last Done: 05/08/25 02:57
[2025-05-07 19:46] LABS: Hematocrit (blood only) 38.2 % (37.0-47.0); Hemoglobin 12.8 g/dL (12.0-16.0); Mean Corpuscular Hemoglobin 31.1 pg (25.0-34.0); Mean Corpuscular Volume 92.7 fL (80.0-100.0); Platelet Count 301 K/uL (130-400); RDW Standard Deviation 49.0 fL (36.4-46.3); Red Blood Count 4.12 M/uL (4.20-5.40); White Blood Count 17.42 K/ul (4.8-10.8)
[2025-05-07] MEDS: ONDANSETRON INJ 2 MG/ML 2 ML VIAL IV STA (19:49)
--- NOTE | 2025-05-07 19:49 | XRay Report ---
Chest radiograph, one view History: Sepsis Comparison: None Findings: Single AP view of the chest performed. No focal consolidation or pleural effusion. No pneumothorax. The cardiomediastinal silhouette is within normal limits. Normal pulmonary vascularity. No evidence for lymphadenopathy. No visualized bony or soft tissue abnormality. Impression: Normal chest radiograph Electronically signed by Rafita King 05-07-2025 7:49 PM
[2025-05-07] MEDS: OPTIRAY 320 100ml IV ONE (19:56)
[2025-05-07] MEDS: PIPERACILLIN/TAZOBACTAM 4.5 GM/100 ML BAG IV ONE (20:06)
[2025-05-07 20:09] LABS: Alanine Aminotransferase 8 U/L (7-52); Albumin Level 4.0 gm/dl (3.4-5.0); Alkaline Phosphatase 118 U/L (34-104); Anion Gap 23 (3-11); Bilirubin,Total 1.1 mg/dl (0.2-1.0); Blood Urea Nitrogen 14 mg/dl (6-23); Calcium 9.5 mg/dl (8.6-10.3); Carbon Dioxide 14 mmol/L (21-32); Chloride 100 mmol/L (98-107); Glucose 387 mg/dl (70-99(Fasting)); Magnesium 1.8 mg/dl (1.7-2.4); Potassium 4.5 mmol/L (3.5-5.1); Sodium 137 mmol/L (136-145); Total Protein 7.6 gm/dl (6.0-8.3)
[2025-05-07 20:14] LABS: Immature Granulocytes # (auto) 0.09 K/uL (0.01-0.20); Immature Granulocytes % (auto) 0.5 %; RBC Morphology Unremarkable
--- NOTE | 2025-05-07 20:21 | CT Scan Report ---
Exam(s): CT ABDOMEN + PELVIS With Contrast IV Amt: 90 ml optiray 320 EXAM: CT Abdomen and Pelvis With Intravenous Contrast CLINICAL HISTORY: Reason for exam: eval for appendicitis. TECHNIQUE: Axial computed tomography images of the abdomen and pelvis with intravenous contrast. CTDI is 14 mGy and DLP is 665 mGy-cm. Automated exposure control was utilized for the study. A dose lowering technique was utilized adhering to the principles of ALARA. CONTRAST: Patient received 90 ml optiray 320 of IV contrast COMPARISON: None FINDINGS: Lung bases: Unremarkable. No mass. No consolidation. ABDOMEN: Liver: Unremarkable. No mass. Gallbladder and bile ducts: Unremarkable. No calcified stones. No ductal dilation. Pancreas: Unremarkable. No mass. No ductal dilation. Spleen: Small splenule. Adrenals: Unremarkable. No mass. Kidneys and ureters: Unremarkable. No hydronephrosis or obstructing ureteral stone. Stomach and bowel: Evaluation of the stomach is limited by underdistention. No mucosal thickening. PELVIS: Appendix: Normal appendix. Bladder: Large lobulated cystic structure in the pelvis superior to the bladder measuring approximately 25.0 x 11.8 x 19.2 cm. Small amount of hyperdense material layering along the posterior inferior aspect of the structure. Etiology of the structure is not certain. Differential diagnosis includes ovarian versus gastrointestinal versus lymphatic cyst. Reproductive: Unremarkable as visualized. ABDOMEN and PELVIS: Intraperitoneal space: Small amount of ascites. No free air. Bones/joints: Degenerative change at L5-S1. No acute fracture. No dislocation. Soft tissues: Unremarkable. Vasculature: Phleboliths in the pelvis. Atherosclerotic changes of the vasculature. No abdominal aortic aneurysm or dissection. Lymph nodes: Unremarkable. No enlarged lymph nodes. IMPRESSION: 1. Normal appendix. 2. Small amount of ascites. 3. Large lobulated cystic structure in the pelvis superior to the bladder measuring approximately 25.0 x 11.8 x 19.2 cm. Small amount of hyperdense material layering along the posterior inferior aspect of the structure. Etiology of the structure is not certain. Differential diagnosis includes ovarian versus gastrointestinal versus lymphatic cyst. Electronically signed by: Carmen Martines M.D. 05/07/25 20:20 PM
[2025-05-07] MEDS: MoRPHine SULFATE 4 MG/ML 1 ML CARP\\VIAL IV STA (20:37)
[2025-05-07 21:01] LABS: Appearance Urine Clear (Clear); Glucose Urine UA 3+ (Negative)
[2025-05-07] MEDS ORDERED: GLUCOSE 40% GEL 15 GM TUBE PO PRN (21:02)
[2025-05-07] MEDS ORDERED: CARBOHYDRATES FOR HYPOGLYCEMIA PO PRN (21:02)
[2025-05-07] MEDS ORDERED: DEXTROSE 50% 50 ML SYRINGE IV PRN (21:02)
[2025-05-07] MEDS ORDERED: GLUCOSE 10 TAB/TUBE PO PRN (21:02)
[2025-05-07] MEDS ORDERED: GLUCAGON FOR INJ 1 MG VIAL SQ PRN (21:02)
[2025-05-07] MEDS: DC HOME INSULIN PUMP STA (21:07)
--- NOTE | 2025-05-07 21:17 | Surgery Consultation ---
<Statement entered by Manuel Perry DO - 05/08/25 09:42> This case has been discussed with the surgical PA Date of Consultation May 07, 2025 Assessment & Plan (1) Abdominal pain: The patient is a 54-year-old female presented to the emergency department for complaints of abdominal pain, nausea and vomiting. Over the last few weeks the patient has been making lifestyle changes and eating healthy and losing weight. Shortly after she started dieting she started experiencing lower abdominal pain and has had intermittent issues with constipation. Over the last few days she has been having bowel movements. Today the patient started with nausea and vomiting that progressed throughout the day which prompted her to come to the emergency department for evaluation. Upon arrival to the ED she was tachycardic and hypotensive and did meet sepsis criteria. She was given appropriate fluid hydration and empiric IV antibiotics. Labs revealed an elevated WBC at 17.4, lactic acid of 4.9, and CT imaging concerning for large lobulated cyst in the pelvis measuring 25x11.8x19.2cm in size with etiology possibly ovarian vs gastrointestinal vs lymphatic cyst. Patient states she does have a history of ovarian cysts in the past and ectopic as well. From a surgical st andpoint recommend the following : -Unclear etiology of cyst, however patient with no signs of acute abdomen that would warrant emergent surgical intervention. -Keep NPO, continue appropriate fluid resuscitation, trend lactic acid, continue empiric antibiotics, and pain management. -Recommend Pelvic US and consult to AUTOMOBILE MECHANIC ASSISTANT due to cyst likely gynecological in nature rather than bowel. -Medical management of DKA and dehydration per medical team History of Present Illness Reason for Consultation: abdominal pain History of Present Illness The patient is a 54-year-old female presented to the emergency department for complaints of abdominal pain, nausea and vomiting. Just prior to my arrival at bedside, patient did receive IV morphine and has been does provide most of the history due to the patient being drowsy secondary to medication. However, patient's states that over the last few weeks the patient has been making lifestyle changes and eating healthy and losing weight. Shortly after she started dieting she started experiencing lower abdominal pain and has had intermittent issues with constipation. Over the last few days she has been having bowel movements. Today the patient started with nausea and vomiting that progressed throughout the day which prompted her to come to the emergency department for evaluation. Upon arrival to the ED she was tachycardic and hypotensive and did meet sepsis criteria. She was given appropriate fluid hydration and empiric IV antibiotics. Labs revealed an elevated WBC at 17.4, lactic acid of 4.9, and CT imaging concerning for large lobulated cyst in the pelvis measuring 25x11.8x19.2cm in size with etiology possibly ovarian vs gastrointestinal vs lymphatic cyst. Due to the patient's presentation and imaging findings general surgery was consulted for further evaluation. The patient was seen and evaluated this evening at bedside. Patient slightly hypotensive after receiving IV morphine just prior to my arrival however did respond to fluids. She denies any history of IBS, Crohn's, or UC. 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 Allergies Allergy/AdvReac Type Severity Reaction Status Date / Time adhesive tape Allergy Intermediate Hives Verified 05/07/25 20:34 oxycodone AdvReac Severe Vomiting Verified 05/07/25 20:34 Home Medications Medication Instructions Recorded Confirmed Type insulin lispro 100 unit/mL 100 unit continuous subcutaneous 11/06/18 05/07/25 History subcutaneous solution (Humalog infusion DAILY U-100 Insulin) semaglutide 1 mg/dose (4 mg/3 mL) 0.25 mg subcut WK 07/31/22 05/07/25 History subcutaneous pen injector (Ozempic) Patient History Medical History (Updated 05/08/25 @ 05:26 by Azar Mcqueen MD) Dyslipidemia HTN (hypertension) IDDM (insulin dependent diabetes mellitus) History of ectopic TIA (transient ischemic attack) Surgical History (Updated 11/05/18 @ 09:18 by Taras Castillo RN) History of History of tonsillectomy Social History Smoking Status: Former smoker Second Hand Exposure: No; Do You Dip or Chew Tobacco: No; Hx Alcohol Use: No Hx Substance Use: No Preferred Language: Syriac Communication Ability: Effective New Product Trainer Required: No Beliefs That Will Affect Care: None Current Living Situation: Spouse Feels Safe at Home: Yes Assistive Devices: Denture - Upper and Denture - Lower Review of Systems Constitutional: no fever, no chills and no weakness Respiratory: no cough and no chest congestion Cardiovascular: no chest pain Gastrointestinal: + nausea, + vomiting and + constipation; no blood in stools Genitourinary: no difficulty urinating and no hematuria Physical Exam Constitutional: cooperative; no acute distress Pt awake and alert however drowsy due to just receiving IV pain medication just prior to my exam Respiratory: normal respiratory effort, lungs clear to auscultation Cardiovascular: Rate/Rhythm: regular rate Gastrointestinal (Abdomen): Abdomen mildly distended, firm in the lower abdomen with TTP (R>L). No signs of peritonitis Skin: no rashes, warm and dry Results & Data Vital Signs (Past 12 Hours) Vital Signs Temp Pulse Resp BP Pulse Ox O2 Del Method 05/07/25 21:00 92 H 19 94/50 L 97 05/07/25 20:51 92 H 13 75/42 L 96 05/07/25 20:51 75/42 L 05/07/25 20:50 67/43 L 05/07/25 20:42 100 H 22 93/46 L 95 Room Air 05/07/25 20:30 108 H 24 104/62 100 05/07/25 20:21 108 H 21 115/71 95 05/07/25 20:12 108 H 18 98/79 L 100 05/07/25 20:06 104 H 16 108/44 L 100 05/07/25 19:51 87 16 126/69 100 05/07/25 19:42 74 16 116/66 100 05/07/25 19:38 86 20 109/66 99 Room Air 05/07/25 19:37 37.3 C 05/07/25 19:31 84 20 100 Room Air 05/07/25 19:30 92 H 19 90/54 L 100 05/07/25 19:21 93 H 05/07/25 19:18 95 H 18 109/70 99 Room Air 05/07/25 19:11 36.2 C L 95 H 19 64/41 L 100 Room Air Diagnostic Findings Exam(s): CT ABDOMEN + PELVIS With Contrast IV Amt: 90 ml optiray 320 EXAM: CT Abdomen and Pelvis With Intravenous Contrast CLINICAL HISTORY: Reason for exam: eval for appendicitis. TECHNIQUE: Axial computed tomography images of the abdomen and pelvis with intravenous contrast. CTDI is 14 mGy and DLP is 665 mGy-cm. Automated exposure control was utilized for the study. A dose lowering technique was utilized adhering to the principles of ALARA. CONTRAST: Patient received 90 ml optiray 320 of IV contrast COMPARISON: None FINDINGS: Lung bases: Unremarkable. No mass. No consolidation. ABDOMEN: Liver: Unremarkable. No mass. Gallbladder and bile ducts: Unremarkable. No calcified stones. No ductal dilation. Pancreas: Unremarkable. No mass. No ductal dilation. Spleen: Small splenule. Adrenals: Unremarkable. No mass. Kidneys and ureters: Unremarkable. No hydronephrosis or obstructing ureteral stone. Stomach and bowel: Evaluation of the stomach is limited by underdistention. No mucosal thickening. PELVIS: Appendix: Normal appendix. Bladder: Large lobulated cystic structure in the pelvis superior to the bladder measuring approximately 25.0 x 11.8 x 19.2 cm. Small amount of hyperdense material layering along the posterior inferior aspect of the structure. Etiology of the structure is not certain. Differential diagnosis includes ovarian versus gastrointestinal versus lymphatic cyst. Reproductive: Unremarkable as visualized. ABDOMEN and PELVIS: Intraperitoneal space: Small amount of ascites. No free air. Bones/joints: Degenerative change at L5-S1. No acute fracture. No dislocation. Soft tissues: Unremarkable. Vasculature: Phleboliths in the pelvis. Atherosclerotic changes of the vasculature. No abdominal aortic aneurysm or dissection. Lymph nodes: Unremarkable. No enlarged lymph nodes. IMPRESSION: 1. Normal appendix. 2. Small amount of ascites. 3. Large lobulated cystic structure in the pelvis superior to the bladder measuring approximately 25.0 x 11.8 x 19.2 cm. Small amount of hyperdense material layering along the posterior inferior aspect of the structure. Etiology of the structure is not certain. Differential diagnosis includes ovarian versus gastrointestinal versus lymphatic cyst. PG Care Time/CCT Total # of Minutes Spent Total Time Spent with Patient: Total time spent is greater than 50% in coordination of care (as documented) at patient's floor/unit and/or counseling patient: [place] [address] Office/OBS Consult Lvl 1 Patient Type New History Problem Focused Exam Problem Focused Medical Decision Making Straight Forward Diagnoses Abdominal pain R10.9
[2025-05-07] MEDS: NovoLIN-R BOLUS FROM BAG IV ONE (22:36)
[2025-05-07] MEDS: INSULIN REGULAR 250 UNITS in SODIUM CHLORIDE 0.9% 247.5 ML IV SCH (22:36)
[2025-05-07] MEDS: POTASSIUM CHLORIDE / WTR 10 MEQ/100 ML PLCT IV SCH (22:36)
[2025-05-07 23:35] LABS: Base Excess VBG -15.5 mEq/L; HCO3 VBG 12 mmol/L; Oxygen Saturation VBG 75.7 %; PCO2 VBG 31 mmHg (38-50); PO2 VBG 48 mmHg; pH VBG 7.18 (7.36-7.41)
--- NOTE | 2025-05-07 23:57 | History & Physical Report ---
Date of Service May 07, 2025 Assessment & Plan (1) Hypotension: Plan: Assessment and plan below following discussion of case with ED provider and reviewing patient history/pertinent normal/abnormal diagnostic test results. Hypotension Improved BP after initial intervention at the ER Multifactorial Hypovolemia secondary to hyperglycemic crisis (DKA/HHS combo), DM1 on insulin pump, well-controlled as of recent hemoglobin A1c of 6.31 December 2024 Severe sepsis (SIRS plus lactic acidosis), unclear source for now PVD status post stent, patient admits to forgetting to take Plavix and statin medication from time to time. hyperlipidemia, not on statin Rx hypothyroidism, euthyroid as of recent outpatient TSH, patient currently not taking thyroid replacement medication Pelvic mass on imaging past tobacco abuse Admit to PCU IVF, IV insulin Pharmacy glycemic control consultation Update hemoglobin A1c CS, Daptomycin, Zosyn for now Monitor lactic acid response to IVF Gynecology consult re: pelvic mass (ED provider already in touch with Dr. Topete who initially recommended tertiary care transfer. No indication for urgent transfer currently as per ED provider conversation with Dr. Canchola of [facility] Gynecology given patient's more pressing medical issues.) DVT prophylaxis. Lovenox subcu Full code Patient requesting updates providers. Mr. MERISSA Aguilera, contact #[phone]. Total critical care time was 45 minutes. Text document was generated using [employer] voice recognition software. It may contain grammatical or spelling errors. Kindly contact undersigned for clarification of any documentation item in question. History of Present Illness Chief Complaint: Right sided abdominal/back pain Primary Care Provider: Hemalatha Schmitz, History obtained from patient, family, and records. Medical history significant for PVD status post stent, DM1 on insulin pump, hyperlipidemia, hypothyroidism, GERD, migraine, anxiety disorder, past tobacco abuse. Patient had worsening achy right abdominal pain going to the back over the last few weeks. Trauma resulting in fall last month. Denies vaginal bleeding or dysuria symptoms. Worsening discomfort over the last few days. No headache, no cough, no chest pain, no SOB. Upper denture pain for some time now as per . No open wounds or extremity swelling. Nausea/emesis symptoms at home. BSG 300s at home when changing supplies as per patient. Patient compliant with home insulin pump. Usual BSG 140s with some low episodes. Patient brought to ER for evaluation. Lowest SBPs of 60s documented. Highest BSG 400s Multiple IVF boluses, IV insulin, IV Zosyn administered at the ER. 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 Allergies Allergy/AdvReac Type Severity Reaction Status Date / Time adhesive tape Allergy Intermediate Hives Verified 05/07/25 20:34 oxycodone AdvReac Severe Vomiting Verified 05/07/25 20:34 Home Medications Medication Instructions Recorded Confirmed Type insulin lispro 100 unit/mL 100 unit continuous subcutaneous 11/06/18 05/07/25 History subcutaneous solution (Humalog infusion DAILY U-100 Insulin) semaglutide 1 mg/dose (4 mg/3 mL) 0.25 mg subcut WK 07/31/22 05/07/25 History subcutaneous pen injector (Ozempic) Lipitor 40 mg PO DAILY 05/08/25 05/08/25 History Plavix 75 mg PO DAILY 05/08/25 05/08/25 History Past Med/Surg History Problem List (Updated 11/05/18 @ 09:18 by Taras Castillo, RN) Hypotension Abdominal pain COVID-19 (Acute) PAD (peripheral artery disease) Hx of ectopic (Chronic) Hx of tonsillectomy (Chronic) IDDM (insulin dependent diabetes mellitus) (Chronic) Left-sided weakness S/P section (Chronic) Medical History (Updated 05/08/25 @ 05:26 by Azar Mcqueen MD) Dyslipidemia HTN (hypertension) IDDM (insulin dependent diabetes mellitus) History of ectopic TIA (transient ischemic attack) Surgical History (Updated 11/05/18 @ 09:18 by Taras Castillo, RN) History of History of tonsillectomy Social History Smoking Status: Former smoker Second Hand Exposure: No; Do You Dip or Chew Tobacco: No; Hx Alcohol Use: No Hx Substance Use: No Preferred Language: Senegalese Communication Ability: Effective Kick Press Operator Required: No Beliefs That Will Affect Care: None Current Living Situation: Spouse Feels Safe at Home: Yes Assistive Devices: Denture - Upper and Denture - Lower Review of Systems Review of Systems: As per HPI, all other systems reviewed and negative Physical Exam Physical Exam: GENERAL: uncomfortable, ill-appearing, no respiratory distress SKIN: Normal color, warm HEENT: [place] palpebral conjunctivae, no ptosis, dry buccal mucosa, no trismus NECK : Supple, no tenderness CHEST : CTA, no tenderness HEART : Tachycardic, no obvious murmurs ABDOMEN: Some distention, right-sided abdominal tenderness BACK : Low back tenderness, negative SLR EXTREMITIES : No LE swelling/tenderness, palpable pulses, no other conspicuous deformities noted NEUROLOGIC : Coherent, no facial asymmetry, no other gross focality Results & Data Results & Data Vital Signs (Past 12 Hours) Vital Signs Temp Pulse Pulse Resp BP BP Pulse Ox 05/07/25 23:23 111 H 05/07/25 21:40 99 H 17 93/47 L 98 05/07/25 21:30 98 H 19 88/46 L 97 05/07/25 21:25 89/47 L 05/07/25 21:20 78/45 L 05/07/25 21:20 98 H 20 78/45 L 98 05/07/25 21:12 96 H 19 98 05/07/25 21:10 88/52 L 05/07/25 21:00 92 H 19 94/50 L 97 05/07/25 20:51 92 H 13 75/42 L 96 05/07/25 20:51 75/42 L 05/07/25 20:50 67/43 L 05/07/25 20:42 100 H 22 93/46 L 95 05/07/25 20:30 108 H 24 104/62 100 05/07/25 20:21 108 H 21 115/71 95 05/07/25 20:12 108 H 18 98/79 L 100 05/07/25 20:06 104 H 16 108/44 L 100 05/07/25 19:51 87 16 126/69 100 05/07/25 19:42 74 16 116/66 100 05/07/25 19:38 86 20 109/66 99 05/07/25 19:37 37.3 C 05/07/25 19:31 84 20 100 05/07/25 19:30 92 H 19 90/54 L 100 05/07/25 19:21 93 H 05/07/25 19:18 95 H 18 109/70 99 05/07/25 19:11 36.2 C L 95 H 19 64/41 L 100 O2 Del Method 05/07/25 23:23 05/07/25 21:40 05/07/25 21:30 05/07/25 21:25 05/07/25 21:20 05/07/25 21:20 Room Air 05/07/25 21:12 05/07/25 21:10 05/07/25 21:00 05/07/25 20:51 05/07/25 20:51 05/07/25 20:50 05/07/25 20:42 Room Air 05/07/25 20:30 05/07/25 20:21 05/07/25 20:12 05/07/25 20:06 05/07/25 19:51 05/07/25 19:42 05/07/25 19:38 Room Air 05/07/25 19:37 05/07/25 19:31 Room Air 05/07/25 19:30 05/07/25 19:21 05/07/25 19:18 Room Air 05/07/25 19:11 Room Air Laboratory Results Laboratory Results WBC 17.42 K/ul (4.8-10.8) H 05/07/25 19:35 RBC 4.12 M/uL (4.20-5.40) L 05/07/25 19:35 Hgb 12.8 g/dL (12.0-16.0) 05/07/25 19:35 POC Hgb 13.6 g/dl (12.0-16.0) 05/07/25 19:37 Hct 38.2 % (37.0-47.0) 05/07/25 19:35 POC Hct 40 % (37-47) 05/07/25 19:37 MCV 92.7 fL (80.0-100.0) 05/07/25 19:35 MCH 31.1 pg (25.0-34.0) 05/07/25 19:35 MCHC 33.5 g/dL (32.0-36.0) 05/07/25 19:35 RDW Std Deviation 49.0 fL (36.4-46.3) H 05/07/25 19:35 RDW Coeff of Raheel 14.4 % (11.5-14.5) 05/07/25 19:35 Plt Count 301 K/uL (130-400) 05/07/25 19:35 MPV 9.7 fL (9.4-12.4) 05/07/25 19:35 Immature Gran % (Auto) 0.5 % 05/07/25 19:35 Neut % (Auto) 90.4 % 05/07/25 19:35 Lymph % (Auto) 5.5 % 05/07/25 19:35 Marion % (Auto) 3.4 % 05/07/25 19:35 Eos % (Auto) 0.0 % 05/07/25 19:35 Baso % (Auto) 0.2 % 05/07/25 19:35 Neut # (Auto) 15.73 K/uL (1.40-6.50) H 05/07/25 19:35 Lymph # (Auto) 0.96 K/uL (1.20-3.40) L 05/07/25 19:35 Marion # (Auto) 0.60 K/uL (0.11-0.59) H 05/07/25 19:35 Eos # (Auto) 0.00 K/uL (0.00-0.50) 05/07/25 19:35 Baso # (Auto) 0.04 K/uL (0.00-0.20) 05/07/25 19:35 Immature Gran # (Auto) 0.09 K/uL (0.01-0.20) 05/07/25 19:35 RBC Morphology Unremarkable 05/07/25 19:35 VBG pH 7.18 (7.36-7.41) L 05/07/25 22:49 VBG pCO2 31 mmHg (38-50) L 05/07/25 22:49 VBG pO2 48 mmHg 05/07/25 22:49 VBG HCO3 12 mmol/L 05/07/25 22:49 VBG O2 Saturation 75.7 % 05/07/25 22:49 VBG Base Excess -15.5 mEq/L 05/07/25 22:49 POC Sodium 139 mmol/L (135-144) 05/07/25 19:37 Sodium 137 mmol/L (136-145) 05/07/25 19:35 POC Potassium 4.5 mmol/L (3.3-5.0) 05/07/25 19:37 Potassium 4.5 mmol/L (3.5-5.1) 05/07/25 19:35 POC Chloride 104 mmol/L (101-112) 05/07/25 19:37 Chloride 100 mmol/L (98-107) 05/07/25 19:35 Carbon Dioxide 14 mmol/L (21-32) L 05/07/25 19:35 POC Total CO2 15 mmol/L (24-31) L 05/07/25 19:37 Anion Gap 23 (3-11) H 05/07/25 19:35 POC Anion Gap 25.0 mmol/L (16-25) 05/07/25 19:37 POC BUN 13 mg/dl (7-18) 05/07/25 19:37 BUN 14 mg/dl (6-23) 05/07/25 19:35 Creatinine 1.07 mg/dl (0.6-1.2) 05/07/25 19:35 POC Creatinine 1.0 mg/dl (0.6-1.3) 05/07/25 19:37 Est Cr Clr Drug Dosing Not Reportable 05/07/25 19:35 eGFR 60.96 05/07/25 19:35 BUN/Creatinine Ratio 13.1 (10-20) 05/07/25 19:35 Glucose 387 mg/dl (70-99(Fasting)) H* 05/07/25 19:35 POC Glucose 345 mg/dl (70-99) H* 05/07/25 23:51 POC Glucose (other) 360 mg/dl (70-99) H* 05/07/25 19:37 Osmolality 314 mOsm/kg (280-300) H 05/07/25 19:35 Lactate 4.3 mmol/L (0.4-2.0) H* 05/07/25 21:55 Calcium 9.5 mg/dl (8.6-10.3) 05/07/25 19:35 POC Ioniz Calcium Latoya 1.12 mmol/l (1.12-1.32) 05/07/25 19:37 Magnesium 1.8 mg/dl (1.7-2.4) 05/07/25 19:35 Total Bilirubin 1.1 mg/dl (0.2-1.0) H 05/07/25 19:35 Direct Bilirubin 0.2 mg/dl (0-0.2) 05/07/25 19:35 AST 13 U/L (13-39) 05/07/25 19:35 ALT 8 U/L (7-52) 05/07/25 19:35 Alkaline Phosphatase 118 U/L (34-104) H 05/07/25 19:35 Troponin I High Sens 2.6 pg/ml (0-14) 05/07/25 19:35 Total Protein 7.6 gm/dl (6.0-8.3) 05/07/25 19:35 Albumin 4.0 gm/dl (3.4-5.0) 05/07/25 19:35 Procalcitonin 0.67 ng/ml (0-0.5) H 05/07/25 19:35 Urine Color Yellow 05/07/25 20:45 Urine Appearance Clear (Clear) 05/07/25 20:45 Urine pH 5.5 (4.5-7.5) 05/07/25 20:45 Ur Specific [place] 1.040 (1.000-1.030) H 05/07/25 20:45 Urine Protein Negative (Negative) 05/07/25 20:45 Urine Glucose (UA) 3+ (Negative) H 05/07/25 20:45 Urine Ketones 4+ (Negative) H 05/07/25 20:45 Urine Blood Negative (Negative) 05/07/25 20:45 Urine Nitrite Negative (Negative) 05/07/25 20:45 Urine Bilirubin Negative (Negative) 05/07/25 20:45 Urine Urobilinogen Negative (Negative) 05/07/25 20:45 Ur Leukocyte Esterase Negative (Negative) 05/07/25 20:45 Urine Comment 05/07/25 20:45 Blood Type A Positive 05/07/25 19:36 Antibody Screen NEGATIVE 05/07/25 19:36 Impressions Chest X-Ray 05/07/25 19:16 Chest radiograph, one view History: Sepsis Comparison: None Findings: Single AP view of the chest performed. No focal consolidation or pleural effusion. No pneumothorax. The cardiomediastinal silhouette is within normal limits. Normal pulmonary vascularity. No evidence for lymphadenopathy. No visualized bony or soft tissue abnormality. Impression: Normal chest radiograph Electronically signed by Rafita King 05-07-2025 7:49 PM Abdomen/Pelvis CT 05/07/25 19:19 Exam(s): CT ABDOMEN + PELVIS With Contrast IV Amt: 90 ml optiray 320 EXAM: CT Abdomen and Pelvis With Intravenous Contrast CLINICAL HISTORY: Reason for exam: eval for appendicitis. TECHNIQUE: Axial computed tomography images of the abdomen and pelvis with intravenous contrast. CTDI is 14 mGy and DLP is 665 mGy-cm. Automated exposure control was utilized for the study. A dose lowering technique was utilized adhering to the principles of ALARA. CONTRAST: Patient received 90 ml optiray 320 of IV contrast COMPARISON: None FINDINGS: Lung bases: Unremarkable. No mass. No consolidation. ABDOMEN: Liver: Unremarkable. No mass. Gallbladder and bile ducts: Unremarkable. No calcified stones. No ductal dilation. Pancreas: Unremarkable. No mass. No ductal dilation. Spleen: Small splenule. Adrenals: Unremarkable. No mass. Kidneys and ureters: Unremarkable. No hydronephrosis or obstructing ureteral stone. Stomach and bowel: Evaluation of the stomach is limited by underdistention. No mucosal thickening. PELVIS: Appendix: Normal appendix. Bladder: Large lobulated cystic structure in the pelvis superior to the bladder measuring approximately 25.0 x 11.8 x 19.2 cm. Small amount of hyperdense material layering along the posterior inferior aspect of the structure. Etiology of the structure is not certain. Differential diagnosis includes ovarian versus gastrointestinal versus lymphatic cyst. Reproductive: Unremarkable as visualized. ABDOMEN and PELVIS: Intraperitoneal space: Small amount of ascites. No free air. Bones/joints: Degenerative change at L5-S1. No acute fracture. No dislocation. Soft tissues: Unremarkable. Vasculature: Phleboliths in the pelvis. Atherosclerotic changes of the vasculature. No abdominal aortic aneurysm or dissection. Lymph nodes: Unremarkable. No enlarged lymph nodes. IMPRESSION: 1. Normal appendix. 2. Small amount of ascites. 3. Large lobulated cystic structure in the pelvis superior to the bladder measuring approximately 25.0 x 11.8 x 19.2 cm. Small amount of hyperdense material layering along the posterior inferior aspect of the structure. Etiology of the structure is not certain. Differential diagnosis includes ovarian versus gastrointestinal versus lymphatic cyst. Electronically signed by: Carmen Martines M.D. 05/07/25 20:[address] face: No acute facial fractures. Small polyp noted in right maxillary sinus. No other abnormality is seen. Diagnostic Findings EKG as per my interpretation : Rate 95, NSR, RAD, nonspecific T wave abnormalities
[2025-05-08 00:03] LABS: Anion Gap 27.0 (3-11); Blood Urea Nitrogen 15.0 mg/dl (6-23); Calcium 8.2 mg/dl (8.6-10.3); Carbon Dioxide 11.0 mmol/L (21-32); Chloride 100.0 mmol/L (98-107); Creatinine Clr Calc Pharmacy 64.4 ml/min; Glucose 464.0 mg/dl (70-99(Fasting)); Potassium 4.8 mmol/L (3.5-5.1); Sodium 138.0 mmol/L (136-145)
--- NOTE | 2025-05-08 00:19 | Ultrasound Report ---
Exam(s): US PELVIS EXAM: US Pelvis Transabdominal, Complete CLINICAL HISTORY: Reason for exam: eval for ovarian pathology. OTHER: Other Notes: Pain. Hx of C-sections. Pt seems slightly confused but states no other pelvic surgeries. Postmenopausal. Uterus: 7.8x2.5x4.7cm. Limited visualization but appears unremarkable. ES: .3cm. Ovaries not visualized. There is a 22.9x11.2x18.0cm complex cystic area within pelvis. There appears to be a septation within. No vascular flow seen within. *Exam is very limited due to patient's pain-unable to apply pressure with patient being able to tolerate. Pt declined TV exam. TECHNIQUE: Real-time complete transabdominal pelvic ultrasound with image documentation. COMPARISON: 23 x 11.2 x 18 cm complex cystic structure within pelvis which is separate and distinct from the ovaries FINDINGS: Uterus/cervix: Unremarkable. Normal endometrial stripe thickness. No myometrial mass. Right ovary: Unremarkable. No mass. Normal arterial and venous blood flow. Left ovary: Unremarkable. No mass. Normal arterial and venous blood flow. Vagina: Patient declined transvaginal imaging. Free fluid: No free fluid. Bladder: Unremarkable as visualized. Wall is normal thickness for degree of distention. IMPRESSION: Limited exam Enlarged cystic ovary. Findings may represent cystic ovarian neoplasm. OB-[facility] LEVELER consult recommended for further evaluation. Electronically signed by: Félix Gallego MD 05/08/25 00:18 AM
[2025-05-08] MEDS ORDERED: PHARMACY GLYCEMIC MGMT CONSULT PRN (00:27)
[2025-05-08] MEDS: DKA GOAL RANGE 150-250 mg/dl ONE (00:48)
[2025-05-08] MEDS: STAT IV Infusion **Titration per Protocol STA (00:48)
[2025-05-08] MEDS ORDERED: LORazepam 0.5 MG TAB PO PRN (01:19)
[2025-05-08] MEDS ORDERED: ACETAMINOPHEN 325 MG TAB PO PRN (01:19)
[2025-05-08] MEDS ORDERED: HYDROCODONE/ACETAMOPHEN 5/325MG TAB PO PRN (01:20)
[2025-05-08] MEDS: DAPTOmycin 500 MG in SYRINGE 0 ML IV STA (01:34)
[2025-05-08] MEDS: LACTATED RINGER'S 1,000 ML IV STA (01:40)
[2025-05-08 01:43] LABS: Base Excess VBG -12.3 mEq/L; HCO3 VBG 14 mmol/L; Oxygen Saturation VBG < 60.0 %; PCO2 VBG 34 mmHg (38-50); PO2 VBG 25 mmHg; pH VBG 7.23 (7.36-7.41)
[2025-05-08] MEDS: KETOROLAC TROMETHAMINE 15 MG/ML VIAL IV STA (01:46)
[2025-05-08] MEDS: PROMETHAZINE 6.25 MG/50.25 ML BAG IV STA ×2 (01:47→20:46)
[2025-05-08] MEDS: MAGNESIUM SULFATE / D5W 1 GM/100 ML BAG IV STA (03:03)
[2025-05-08] MEDS: D5W AND LACTATED RINGERS 1,000 ML IV SCH ×2 (03:03→14:31)
--- NOTE | 2025-05-08 03:20 | CT Scan Report ---
EXAM: CT facial bones wo con CLINICAL HISTORY: upper jaw pain TECHNIQUE: Computed tomography of the orbits/face was performed without intravenous contrast. Contiguous axial images were obtained. Reformatted coronal and sagittal images were also reviewed. CT scan was performed according to ALARA (as low as reasonably achievable). COMPARISON: NONE. FINDINGS: No acute facial fractures. Small polyp noted in right maxillary sinus. Rest of paranasal sinuses and mastoid air cells are clear. Edentulous upper and lower jaws. The globes, optic nerves, extraocular muscles and retro-orbital fat are grossly unremarkable. Reformatted imaging demonstrates intact roof and floor of the orbits. Included portions of the mandible are intact. The included intracranial substances and airway are unremarkable. IMPRESSION: No acute facial fractures. Small polyp noted in right maxillary sinus. No other abnormality is seen. Electronically signed by Jim Vega 05-08-2025 03:20 AM
[2025-05-08 03:47] LABS: Base Excess VBG -6.4 mEq/L; HCO3 VBG 19 mmol/L; Oxygen Saturation VBG < 60.0 %; PCO2 VBG 37 mmHg (38-50); PO2 VBG 24 mmHg; pH VBG 7.32 (7.36-7.41)
[2025-05-08 03:49] LABS: Hematocrit (blood only) 31.6 % (37.0-47.0); Hemoglobin 10.7 g/dL (12.0-16.0); Immature Granulocytes # (auto) 0.07 K/uL (0.01-0.20); Immature Granulocytes % (auto) 0.4 %; Mean Corpuscular Hemoglobin 31.8 pg (25.0-34.0); Mean Corpuscular Volume 93.8 fL (80.0-100.0); Platelet Count 244 K/uL (130-400); RDW Standard Deviation 49.8 fL (36.4-46.3); Red Blood Count 3.37 M/uL (4.20-5.40); White Blood Count 17.50 K/ul (4.8-10.8)
[2025-05-08 04:05] LABS: Anion Gap 13.0 (3-11); Blood Urea Nitrogen 14.0 mg/dl (6-23); Calcium 8.6 mg/dl (8.6-10.3); Carbon Dioxide 19.0 mmol/L (21-32); Chloride 107.0 mmol/L (98-107); Creatinine Clr Calc Pharmacy 61.4 ml/min; Glucose 230.0 mg/dl (70-99(Fasting)); Potassium 4.1 mmol/L (3.5-5.1); Sodium 139.0 mmol/L (136-145)
[2025-05-08] MEDS: PIPERACILLIN/TAZOBACTAM 4.5 GM/100 ML BAG IV SCH (04:09)
[2025-05-08 04:20] LABS: Thyroid Stimulating Hormone 1.47 uIu/ml (0.300-4.500)
[2025-05-08 05:13] LABS: Lipase 4.0 U/L (11-82)
[2025-05-08 07:32] LABS: Base Excess VBG 0.1 mEq/L; HCO3 VBG 25 mmol/L; Oxygen Saturation VBG < 60.0 %; PCO2 VBG 39 mmHg (38-50); PO2 VBG 27 mmHg; pH VBG 7.41 (7.36-7.41)
[2025-05-08 07:43] LABS: Hemoglobin A1C 6.1 % (4.5-5.6)
[2025-05-08 08:11] LABS: Anion Gap 8.0 (3-11); Blood Urea Nitrogen 12.0 mg/dl (6-23); Calcium 8.3 mg/dl (8.6-10.3); Carbon Dioxide 22.0 mmol/L (21-32); Chloride 109.0 mmol/L (98-107); Creatinine Clr Calc Pharmacy 66.3 ml/min; Glucose 322.0 mg/dl (70-99(Fasting)); Potassium 3.9 mmol/L (3.5-5.1); Sodium 139.0 mmol/L (136-145)
[2025-05-08] MEDS ORDERED: POTASSIUM PHOS 3 MMOL/1 ML INFUSION IV STA ×2 (08:14→14:07)
[2025-05-08] MEDS: INSULIN ASPART PER UNIT CHARGE SC SCH (08:14)
[2025-05-08] MEDS ORDERED: INSULIN ASPART 100 UNITS/ML VIAL SC PRN (09:03)
--- NOTE | 2025-05-08 09:03 | Electrocardiogram Report ---
Test Reason : Blood Pressure : */* mmHG Vent. Rate : 94 BPM Atrial Rate : 94 BPM P-R Int : 132 ms QRS Dur : 84 ms QT Int : 398 ms P-R-T Axes : 78 95 82 degrees QTcB Int : 497 ms Normal sinus rhythm Rightward axis Cannot rule out Inferior infarct (cited on or before 31-Jul-2022) Abnormal ECG When compared with ECG of 31-Jul-2022 15:52, Questionable change in QRS axis Nonspecific T wave abnormality now evident in Anterior leads Confirmed by Mick Strong ([id number]) on 05/08/2025 9:03:25 AM Referred By: REFERRED SELF Confirmed By: Mick Strong
[2025-05-08] MEDS: ENOXAPARIN INJ 40 MG/0.4 ML SYR SQ SCH (09:50)
[2025-05-08] MEDS: POTASSIUM PHOSPHATE 15 MMOL in SODIUM CHLORIDE 0.9% 250 ML IV ONE (09:52)
[2025-05-08] MEDS: PROMETHAZINE 6.25 MG/50.25 ML BAG IV PRN (10:12)
[2025-05-08] MEDS: LACTATED RINGER'S 1,000 ML IV SCH (10:30)
--- NOTE | 2025-05-08 10:39 | Hospitalist Progress Note ---
Date of Service May 08, 2025 Assessment & Plan (1) Hypotension: Plan: 54F with PMH IDDM, PAD on plavix who presents with non blood emesis and RLQ pain #DKA -Presents with high anion gap metabolic acidosis and hyperglycemia -Suspect triggered by viral gastroenteritis vs food poisoning -Compliant with home insulin pump and follows closely with endo as OP -Required insulin drip -Gap closed x 1 and acidosis resolved this AM Plan -D/w pharmacy, will begin transitioning back to home insulin pump -Resume CC diet -Monitor BG closely for today to ensure she is tolerating her insulin pump #Hypotension -Possible sepsis on admission with hypotension, leukocytosis and elevated lactate -Lactate dowtrending and hypotension improving -However, there is no clear source of bacterial infection -Imaging neg for signs of infection unless gynecology believes the ovarian cyst is actually an abscess -ROS positive only for 24 hours of non bloody emesis without diarrhea -Possible that viral gastroenteritis/food poisoning resulting in volume depletion is causing her presentation Plan -Will continue empiric abx for possible sepsis for now -If blood cultures are neg x 48 hours and she continues to improve, will DC abx -There is no clear indication for daptomycin. Will switch to vanc and continue cefepime #Ovarian mass -CT and pelvic US showing a 23cm cystic mass -History of ovarian cysts in the past -This is likely contributing to her chronic RLQ abd pain but unclear if it is contributing to her other issues -Appreciate advisory internship input -If biopsy is warranted, she is on plavix #Hypophosphatemia #Hypocalcemia -Replace and follow #PAD -Continue statin and plavix for now I spent a total of 70 minutes coordinating, documenting, and providing care for this patient excluding time spent in the performance of separately billed services. This included personally reviewing all current laboratories and imaging studies, medical reconciliation, outpatient chart review and discussion with specialists Admission and Anticipated Discharge Date Admission Date: May 07, 2025 Subjective Seen this AM. feeling much better today than yesterday. she states her main complaints yesterday were frequent non bloody emesis without diarrhea and chronic RLQ pain. D/w daughter at bedside. d/w pharmacist and RN Physical Exam Physical Exam: Vitals and labs reviewed General: Well appearing, NAD HEENT: EOMI, PERRLA Neck: Supple Cardiac: RRR no rubs gallops or murmurs Lungs: CTA no rhonchi wheezing or rales Abd: Fullness in RLQ. TTP. no guarding or rigidity. : Deffered MSK: Full ROM. No obvious deformities Ext: No Edema cyanosis Skin: Warm, Dry Neuro: AOx3 No focal deficits. Psych: Normal Mood Results & Data Results & Data Vital Signs (Past 12 Hours) Vital Signs Temp Pulse Pulse Resp BP Pulse Ox O2 Del Method 05/08/25 08:01 37.0 C 95 H 20 95/56 L 96 Room Air 05/08/25 07:33 99 H 05/08/25 02:33 36.6 C 109 H 18 93/60 L 98 Room Air 05/08/25 01:56 109 H 15 98 Room Air 05/08/25 00:28 37.3 C 108 H 17 100/58 L 97 Room Air 05/07/25 23:23 111 H Laboratory Results Abnormal lab results 05/07/25 05/07/25 05/07/25 Range/Units 19:35 19:37 20:44 WBC 17.42 H (4.8-10.8) K/ul RBC 4.12 L (4.20-5.40) M/uL Hgb (12.0-16.0) g/dL Hct (37.0-47.0) % RDW Std Deviation 49.0 H (36.4-46.3) fL RDW Coeff of Raheel (11.5-14.5) % Neut # (Auto) 15.73 H (1.40-6.50) K/uL Lymph # (Auto) 0.96 L (1.20-3.40) K/uL [place] # (Auto) 0.60 H (0.11-0.59) K/uL VBG pH (7.36-7.41) VBG pCO2 (38-50) mmHg Chloride (98-107) mmol/L Carbon Dioxide 14 L (21-32) mmol/L POC Total CO2 15 L (24-31) mmol/L Anion Gap 23 H (3-11) Glucose 387 H* (70-99(Fasting)) mg/dl POC Glucose (70-99) mg/dl POC Glucose (other) 360 H* (70-99) mg/dl Hemoglobin A1c (4.5-5.6) % Osmolality 314 H (280-300) mOsm/kg Lactate 4.9 H* (0.4-2.0) mmol/L Calcium (8.6-10.3) mg/dl Phosphorus (2.5-4.9) mg/dl Total Bilirubin 1.1 H (0.2-1.0) mg/dl Alkaline Phosphatase 118 H (34-104) U/L Lipase (11-82) U/L Procalcitonin 0.67 H (0-0.5) ng/ml Ur Specific [place] (1.000-1.030) Urine Glucose (UA) (Negative) Urine Ketones (Negative) 05/07/25 05/07/25 05/07/25 Range/Units 20:45 21:55 22:41 WBC (4.8-10.8) K/ul RBC (4.20-5.40) M/uL Hgb (12.0-16.0) g/dL Hct (37.0-47.0) % RDW Std Deviation (36.4-46.3) fL RDW Coeff of Raheel (11.5-14.5) % Neut # (Auto) (1.40-6.50) K/uL Lymph # (Auto) (1.20-3.40) K/uL [place] # (Auto) (0.11-0.59) K/uL VBG pH (7.36-7.41) VBG pCO2 (38-50) mmHg Chloride (98-107) mmol/L Carbon Dioxide (21-32) mmol/L POC Total CO2 (24-31) mmol/L Anion Gap (3-11) Glucose (70-99(Fasting)) mg/dl POC Glucose 420 H* (70-99) mg/dl POC Glucose (other) (70-99) mg/dl Hemoglobin A1c (4.5-5.6) % Osmolality (280-300) mOsm/kg Lactate 4.3 H* (0.4-2.0) mmol/L Calcium (8.6-10.3) mg/dl Phosphorus (2.5-4.9) mg/dl Total Bilirubin (0.2-1.0) mg/dl Alkaline Phosphatase (34-104) U/L Lipase (11-82) U/L Procalcitonin (0-0.5) ng/ml Ur Specific [place] 1.040 H (1.000-1.030) Urine Glucose (UA) 3+ H (Negative) Urine Ketones 4+ H (Negative) 05/07/25 05/07/25 05/08/25 Range/Units 22:49 23:51 00:07 WBC (4.8-10.8) K/ul RBC (4.20-5.40) M/uL Hgb (12.0-16.0) g/dL Hct (37.0-47.0) % RDW Std Deviation (36.4-46.3) fL RDW Coeff of Raheel (11.5-14.5) % Neut # (Auto) (1.40-6.50) K/uL Lymph # (Auto) (1.20-3.40) K/uL [place] # (Auto) (0.11-0.59) K/uL VBG pH 7.18 L (7.36-7.41) VBG pCO2 31 L (38-50) mmHg Chloride (98-107) mmol/L Carbon Dioxide 11 L (21-32) mmol/L POC Total CO2 (24-31) mmol/L Anion Gap 27 H (3-11) Glucose 464 H* (70-99(Fasting)) mg/dl POC Glucose 345 H* (70-99) mg/dl POC Glucose (other) (70-99) mg/dl Hemoglobin A1c (4.5-5.6) % Osmolality (280-300) mOsm/kg Lactate 5.6 H* (0.4-2.0) mmol/L Calcium 8.2 L (8.6-10.3) mg/dl Phosphorus (2.5-4.9) mg/dl Total Bilirubin (0.2-1.0) mg/dl Alkaline Phosphatase (34-104) U/L Lipase (11-82) U/L Procalcitonin (0-0.5) ng/ml Ur Specific [place] (1.000-1.030) Urine Glucose (UA) (Negative) Urine Ketones (Negative) 05/08/25 05/08/25 05/08/25 Range/Units 00:45 01:14 01:55 WBC (4.8-10.8) K/ul RBC (4.20-5.40) M/uL Hgb (12.0-16.0) g/dL Hct (37.0-47.0) % RDW Std Deviation (36.4-46.3) fL RDW Coeff of Raheel (11.5-14.5) % Neut # (Auto) (1.40-6.50) K/uL Lymph # (Auto) (1.20-3.40) K/uL [place] # (Auto) (0.11-0.59) K/uL VBG pH 7.23 L (7.36-7.41) VBG pCO2 34 L (38-50) mmHg Chloride (98-107) mmol/L Carbon Dioxide (21-32) mmol/L POC Total CO2 (24-31) mmol/L Anion Gap (3-11) Glucose (70-99(Fasting)) mg/dl POC Glucose 294 H 254 H (70-99) mg/dl POC Glucose (other) (70-99) mg/dl Hemoglobin A1c (4.5-5.6) % Osmolality (280-300) mOsm/kg Lactate (0.4-2.0) mmol/L Calcium (8.6-10.3) mg/dl Phosphorus (2.5-4.9) mg/dl Total Bilirubin (0.2-1.0) mg/dl Alkaline Phosphatase (34-104) U/L Lipase (11-82) U/L Procalcitonin (0-0.5) ng/ml Ur Specific [place] (1.000-1.030) Urine Glucose (UA) (Negative) Urine Ketones (Negative) 05/08/25 05/08/25 05/08/25 Range/Units 02:56 03:27 04:01 WBC 17.50 H (4.8-10.8) K/ul RBC 3.37 L (4.20-5.40) M/uL Hgb 10.7 L (12.0-16.0) g/dL Hct 31.6 L (37.0-47.0) % RDW Std Deviation 49.8 H (36.4-46.3) fL RDW Coeff of Raheel 14.6 H (11.5-14.5) % Neut # (Auto) 15.28 H (1.40-6.50) K/uL Lymph # (Auto) 1.00 L (1.20-3.40) K/uL [place] # (Auto) 1.13 H (0.11-0.59) K/uL VBG pH 7.32 L (7.36-7.41) VBG pCO2 37 L (38-50) mmHg Chloride (98-107) mmol/L Carbon Dioxide 19 L (21-32) mmol/L POC Total CO2 (24-31) mmol/L Anion Gap 13 H (3-11) Glucose 230 H (70-99(Fasting)) mg/dl POC Glucose 213 H 224 H (70-99) mg/dl POC Glucose (other) (70-99) mg/dl Hemoglobin A1c 6.1 H (4.5-5.6) % Osmolality (280-300) mOsm/kg Lactate 2.3 H* (0.4-2.0) mmol/L Calcium (8.6-10.3) mg/dl Phosphorus (2.5-4.9) mg/dl Total Bilirubin (0.2-1.0) mg/dl Alkaline Phosphatase (34-104) U/L Lipase 4 L (11-82) U/L Procalcitonin (0-0.5) ng/ml Ur Specific [place] (1.000-1.030) Urine Glucose (UA) (Negative) Urine Ketones (Negative) 05/08/25 05/08/25 05/08/25 Range/Units 05:04 05:58 07:02 WBC (4.8-10.8) K/ul RBC (4.20-5.40) M/uL Hgb (12.0-16.0) g/dL Hct (37.0-47.0) % RDW Std Deviation (36.4-46.3) fL RDW Coeff of Raheel (11.5-14.5) % Neut # (Auto) (1.40-6.50) K/uL Lymph # (Auto) (1.20-3.40) K/uL [place] # (Auto) (0.11-0.59) K/uL VBG pH (7.36-7.41) VBG pCO2 (38-50) mmHg Chloride (98-107) mmol/L Carbon Dioxide (21-32) mmol/L POC Total CO2 (24-31) mmol/L Anion Gap (3-11) Glucose (70-99(Fasting)) mg/dl POC Glucose 272 H 258 H 279 H (70-99) mg/dl POC Glucose (other) (70-99) mg/dl Hemoglobin A1c (4.5-5.6) % Osmolality (280-300) mOsm/kg Lactate (0.4-2.0) mmol/L Calcium (8.6-10.3) mg/dl Phosphorus (2.5-4.9) mg/dl Total Bilirubin (0.2-1.0) mg/dl Alkaline Phosphatase (34-104) U/L Lipase (11-82) U/L Procalcitonin (0-0.5) ng/ml Ur Specific [place] (1.000-1.030) Urine Glucose (UA) (Negative) Urine Ketones (Negative) 05/08/25 05/08/25 05/08/25 Range/Units 07:17 08:03 09:02 WBC (4.8-10.8) K/ul RBC (4.20-5.40) M/uL Hgb (12.0-16.0) g/dL Hct (37.0-47.0) % RDW Std Deviation (36.4-46.3) fL RDW Coeff of Raheel (11.5-14.5) % Neut # (Auto) (1.40-6.50) K/uL Lymph # (Auto) (1.20-3.40) K/uL [place] # (Auto) (0.11-0.59) K/uL VBG pH (7.36-7.41) VBG pCO2 (38-50) mmHg Chloride 109 H (98-107) mmol/L Carbon Dioxide (21-32) mmol/L POC Total CO2 (24-31) mmol/L Anion Gap (3-11) Glucose 322 H* (70-99(Fasting)) mg/dl POC Glucose 243 H 269 H (70-99) mg/dl POC Glucose (other) (70-99) mg/dl Hemoglobin A1c (4.5-5.6) % Osmolality (280-300) mOsm/kg Lactate (0.4-2.0) mmol/L Calcium 8.3 L (8.6-10.3) mg/dl Phosphorus 1.0 L* (2.5-4.9) mg/dl Total Bilirubin (0.2-1.0) mg/dl Alkaline Phosphatase (34-104) U/L Lipase (11-82) U/L Procalcitonin (0-0.5) ng/ml Ur Specific [place] (1.000-1.030) Urine Glucose (UA) (Negative) Urine Ketones (Negative) 05/08/25 Range/Units 10:02 WBC (4.8-10.8) K/ul RBC (4.20-5.40) M/uL Hgb (12.0-16.0) g/dL Hct (37.0-47.0) % RDW Std Deviation (36.4-46.3) fL RDW Coeff of Raheel (11.5-14.5) % Neut # (Auto) (1.40-6.50) K/uL Lymph # (Auto) (1.20-3.40) K/uL [place] # (Auto) (0.11-0.59) K/uL VBG pH (7.36-7.41) VBG pCO2 (38-50) mmHg Chloride (98-107) mmol/L Carbon Dioxide (21-32) mmol/L POC Total CO2 (24-31) mmol/L Anion Gap (3-11) Glucose (70-99(Fasting)) mg/dl POC Glucose 251 H (70-99) mg/dl POC Glucose (other) (70-99) mg/dl Hemoglobin A1c (4.5-5.6) % Osmolality (280-300) mOsm/kg Lactate (0.4-2.0) mmol/L Calcium (8.6-10.3) mg/dl Phosphorus (2.5-4.9) mg/dl Total Bilirubin (0.2-1.0) mg/dl Alkaline Phosphatase (34-104) U/L Lipase (11-82) U/L Procalcitonin (0-0.5) ng/ml Ur Specific [place] (1.000-1.030) Urine Glucose (UA) (Negative) Urine Ketones (Negative)
[2025-05-08] MEDS ORDERED: VANCOMYCIN CONSULT ACTIVE PRN (10:53)
[2025-05-08] MEDS: CLOPIDOGREL BISULFATE 75 MG TAB PO SCH (10:54)
[2025-05-08] MEDS ORDERED: VANCOMYCIN HCL / NSS 1,000 MG/270 ML BAG IV SCH (11:00)
[2025-05-08] MEDS ORDERED: DC IV INSULIN INFUSION 1 EA DEVI ONE (11:30)
[2025-05-08] MEDS: VANCOMYCIN HCL 1,500 MG in SODIUM CHLORIDE 0.9% 500 ML IV ONE (12:12)
[2025-05-08] MEDS: CALCIUM GLUCONATE 1,000 MG/60 ML BAG IV SCH (12:17)
[2025-05-08] MEDS: INSULIN, Rapid-Acting PUMP SC SCH ×2 (13:20→16:50)
--- NOTE | 2025-05-08 13:20 | Pharmacy Report ---
Pharmacy Glycemic Short Note 2 - Date of Service May 08, 2025 - Glycemic Short BSG Results (Last 24 hours): 05/07/25 05/07/25 05/07/25 19:35 19:37 22:41 Glucose 387 H* POC Glucose 420 H* POC Glucose (other) 360 H* 05/07/25 05/07/25 05/08/25 22:49 23:51 00:45 Glucose 464 H* POC Glucose 345 H* 294 H POC Glucose (other) 05/08/25 05/08/25 05/08/25 01:55 02:56 03:27 Glucose 230 H POC Glucose 254 H 213 H POC Glucose (other) 05/08/25 05/08/25 05/08/25 04:01 05:04 05:58 Glucose POC Glucose 224 H 272 H 258 H POC Glucose (other) 05/08/25 05/08/25 05/08/25 07:02 07:17 08:03 Glucose 322 H* POC Glucose 279 H 243 H POC Glucose (other) 05/08/25 05/08/25 05/08/25 09:02 10:02 11:08 Glucose POC Glucose 269 H 251 H 195 H POC Glucose (other) 05/08/25 11:59 Glucose POC Glucose 159 H POC Glucose (other) OUTPATIENT ANTIDIABETIC REGIMEN: * Humalog pump- 100units/day? * Ozempic 0.25mg QWK LD 05/02/25 * HbA1c 6.1% (05/08/25), 6.6% (01/19) ASSESSMENT: * Kandace is a 54 year old female admitted with abdominal pain/nausea/vomiting and a history of T1DM managed on an insulin pump. Pharmacy has been consulted to assist with glycemic management while inpatient. * BSGs upon admission elevated, anion gap elevated, bicarbonate low, and pH low. Started on insulin infusion per DKA protocol. BSGs trending down overnight and anion gap closed this AM. Discussed plan with hospitalist, will transition back to insulin pump as viral gastroenteritis likely the cause of DKA acutely as HbA1c is at goal. * Unable to transition to insulin pump this AM due to patient's supplies not being available. is bringing in from home per RN. Plan for 2 hours overlap with insulin drip unless BSGs drop below goal then can stop drip. Dextrose fluids stopped this AM in preparation for transition, but may need to restart if transition will be prolonged. * Pharmacy will continue to follow until successful pump transition, then will discontinue consult per insulin pump policy. Pharmacy can be reconsulted for transition to subcutaneous insulin if needed. PLAN FOR INPATIENT GLYCEMIC CONTROL: * Continue insulin infusion per calculator, transition to insulin pump when supplies available.
[2025-05-08] MEDS: Continuous Glucose Monitor SCH (13:21)
[2025-05-08 13:47] LABS: Anion Gap 5.0 (3-11); Blood Urea Nitrogen 10.0 mg/dl (6-23); Calcium 9.1 mg/dl (8.6-10.3); Carbon Dioxide 25.0 mmol/L (21-32); Chloride 112.0 mmol/L (98-107); Creatinine Clr Calc Pharmacy 73.8 ml/min; Glucose 80.0 mg/dl (70-99(Fasting)); Potassium 3.5 mmol/L (3.5-5.1); Sodium 142.0 mmol/L (136-145)
[2025-05-08] MEDS: SODIUM CHLORIDE 0.9% 500 ML IV ONE (14:47)
[2025-05-08] MEDS: POTASSIUM PHOSPHATE 15 MMOL in DEXTROSE 5% 250 ML IV ONE (14:50)
--- NOTE | 2025-05-08 15:03 | Pharmacy Report ---
Pharmacy PK ABX Note - Date of Service May 08, 2025 - Assessment and Plan Assessment 54 year old F receiving vancomycin/cefepime for empiric treatment. Pertinent microbiologic data includes: blood cultures pending. Day # 1 of vancomycin therapy. Plan Vancomycin * Loading dose: 1500 mg IV x 1 * Maintenance dose: 1000 mg IV every 12 hours * Regimen is predicted to achieve target AUC/PRITESH of 400-600 mg/L.hr * Random level to be ordered if continued beyond 48 hours. Pharmacy will continue to follow and will adjust dose/frequency as necessary. Thank you. Pharmacy has transitioned to AUC monitoring for vancomycin. AUC/PRITESH is the preferred PK/PD target and is associated with decreased risk of nephrotoxicity compared to traditional trough targets.
[2025-05-08] MEDS: MoRPHine SULFATE 2 MG/ML CARP IV STA (17:07)
[2025-05-08] MEDS: LACTATED RINGER'S 1,000 ML IV ONE (20:29)
[2025-05-08] MEDS: KETOROLAC TROMETHAMINE 15 MG/ML VIAL IV ONE (20:46)
--- NOTE | 2025-05-08 21:26 | OB/GYN Consultation ---
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 Manriquez History of Present Illness Reason for Consultation: Pelvic mass Attending Physician: Ambrocio Montez DO History of Present Illness patient is a 54-year-old -0-0-1 postmenopausal female who was admitted yesterday to medicine service with abdominal pain, fever, elevated white blood cell count and lactate, meeting criteria for sepsis and diabetic ketoacidosis. She has been on IV fluids, insulin, pain medications and IV antibiotics. During workup she was found to have large cystic pelvic mass on abdominal scan which was confirmed by pelvic/ abdominal ultrasound. she has been postmenopausal for about 10 years, never used hormonal replacement therapy. She has been with same partner for 22 years, has not been sexually active for the past few years due to vaginal dryness and pain. She denies postmenopausal bleeding, vaginal discharge, itching. She has not been to [facility] doctor for about 10 years, not sure whether she already had pelvic mass or ovarian cyst. She thinks her belly has been growing over the last few weeks. Abdominal pelvic CT scan: IMPRESSION: 1. Normal appendix. 2. Small amount of ascites. 3. Large lobulated cystic structure in the pelvis superior to the bladder measuring approximately 25.0 x 11.8 x 19.2 cm. Small amount of hyperdense material layering along the posterior inferior aspect of the structure. Etiology of the structure is not certain. Differential diagnosis includes ovarian versus gastrointestinal versus lymphatic cyst. Pelvic/abdominal ultrasound: Uterus: 7.8x2.5x4.7cm. Limited visualization but appears unremarkable. ES: .3cm. Ovaries not visualized. There is a 22.9x11.2x18.0cm complex cystic area within pelvis. There appears to be a septation within. No vascular flow seen within. *Exam is very limited due to patient's pain-unable to apply pressure with patient being able to tolerate. Pt declined TV exam. Allergies Allergy/AdvReac Type Severity Reaction Status Date / Time adhesive tape Allergy Intermediate Hives Verified 05/07/25 20:34 oxycodone AdvReac Severe Vomiting Verified 05/07/25 20:34 Home Medications Medication Instructions Recorded Confirmed Type insulin lispro 100 unit/mL 100 unit continuous subcutaneous 11/06/18 05/07/25 History subcutaneous solution (Humalog infusion DAILY U-100 Insulin) semaglutide 1 mg/dose (4 mg/3 mL) 0.25 mg subcut WK 07/31/22 05/07/25 History subcutaneous pen injector (Ozempic) Lipitor 40 mg PO DAILY 05/08/25 05/08/25 History Plavix 75 mg PO DAILY 05/08/25 05/08/25 History Patient History Medical History (Updated 05/08/25 @ 21:22 by Emiliano Meier MD) Dyslipidemia HTN (hypertension) IDDM (insulin dependent diabetes mellitus) History of ectopic TIA (transient ischemic attack) Surgical History (Updated 11/05/18 @ 09:18 by Taras Castillo RN) History of History of tonsillectomy Social History Smoking Status: Former smoker Second Hand Exposure: No; Do You Dip or Chew Tobacco: No; Hx Alcohol Use: No Hx Substance Use: No Preferred Language: Citizen Of [place] Communication Ability: Effective Skoog Operator Required: No Beliefs That Will Affect Care: None Current Living Situation: Spouse Feels Safe at Home: Yes Assistive Devices: None Review of Systems Constitutional: as per Subjective / HPI, + fever and + chills Gastrointestinal: + abdominal pain and + bloating Physical Exam Constitutional: WD/WN, vitals as above + acute distress and + frail appearing Gastrointestinal (Abdomen): Inspection/Auscultation: + abdomen distended and + abdominal surgical scar Percussion/Palpation: + abdomen tender and + abdominal mass ( midline lower abdominal/pelvic mass, appears to be 20 to 22 weeks size) Results & Data Vital Signs (Past 12 Hours) Vital Signs Temp Pulse Pulse Resp BP Pulse Ox O2 Del Method 05/08/25 19:03 37.8 C H 94 H 18 98/66 L 93 Room Air 05/08/25 16:06 92 H 05/08/25 16:01 37.3 C 85 20 99/62 L 90 Room Air 05/08/25 11:31 36.7 C 91 H 18 93/55 L 97 Room Air Laboratory Results Lab Results 05/07/25 05/07/25 05/07/25 Range/Units 19:35 19:36 19:37 WBC 17.42 H (4.8-10.8) K/ul RBC 4.12 L (4.20-5.40) M/uL Hgb 12.8 (12.0-16.0) g/dL POC Hgb 13.6 (12.0-16.0) g/dl Hct 38.2 (37.0-47.0) % POC Hct 40 (37-47) % MCV 92.7 (80.0-100.0) fL MCH 31.1 (25.0-34.0) pg MCHC 33.5 (32.0-36.0) g/dL RDW Std Deviation 49.0 H (36.4-46.3) fL RDW Coeff of Raheel 14.4 (11.5-14.5) % Plt Count 301 (130-400) K/uL MPV 9.7 (9.4-12.4) fL Immature Gran % (Auto) 0.5 % Neut % (Auto) 90.4 % Lymph % (Auto) 5.5 % [place] % (Auto) 3.4 % Eos % (Auto) 0.0 % Baso % (Auto) 0.2 % Neut # (Auto) 15.73 H (1.40-6.50) K/uL Lymph # (Auto) 0.96 L (1.20-3.40) K/uL [place] # (Auto) 0.60 H (0.11-0.59) K/uL Eos # (Auto) 0.00 (0.00-0.50) K/uL Baso # (Auto) 0.04 (0.00-0.20) K/uL Immature Gran # (Auto) 0.09 (0.01-0.20) K/uL RBC Morphology Unremarkable VBG pH (7.36-7.41) VBG pCO2 (38-50) mmHg VBG pO2 mmHg VBG HCO3 mmol/L VBG O2 Saturation % VBG Base Excess mEq/L POC Sodium 139 (135-144) mmol/L Sodium 137 (136-145) mmol/L POC Potassium 4.5 (3.3-5.0) mmol/L Potassium 4.5 (3.5-5.1) mmol/L POC Chloride 104 (101-112) mmol/L Chloride 100 (98-107) mmol/L Carbon Dioxide 14 L (21-32) mmol/L POC Total CO2 15 L (24-31) mmol/L Anion Gap 23 H (3-11) POC Anion Gap 25.0 (16-25) mmol/L POC BUN 13 (7-18) mg/dl BUN 14 (6-23) mg/dl Creatinine 1.07 (0.6-1.2) mg/dl POC Creatinine 1.0 (0.6-1.3) mg/dl Est Cr Clr Drug Dosing Not Reportable eGFR 60.96 BUN/Creatinine Ratio 13.1 (10-20) Glucose 387 H* (70-99(Fasting)) mg/dl POC Glucose (70-99) mg/dl POC Glucose (other) 360 H* (70-99) mg/dl Estimat Average Glucose mg/dl Hemoglobin A1c (4.5-5.6) % Osmolality 314 H (280-300) mOsm/kg Lactate (0.4-2.0) mmol/L Calcium 9.5 (8.6-10.3) mg/dl POC Ioniz Calcium Latoya 1.12 (1.12-1.32) mmol/l Phosphorus (2.5-4.9) mg/dl Magnesium 1.8 (1.7-2.4) mg/dl Total Bilirubin 1.1 H (0.2-1.0) mg/dl Direct Bilirubin 0.2 (0-0.2) mg/dl AST 13 (13-39) U/L ALT 8 (7-52) U/L Alkaline Phosphatase 118 H (34-104) U/L Troponin I High Sens 2.6 (0-14) pg/ml Total Protein 7.6 (6.0-8.3) gm/dl Albumin 4.0 (3.4-5.0) gm/dl Lipase (11-82) U/L Carcinoembryonic Ag (0-2.5) ng/ml Procalcitonin 0.67 H (0-0.5) ng/ml TSH (0.300-4.500) uIu/ml Urine Color Urine Appearance (Clear) Urine pH (4.5-7.5) Ur Specific Jbphh (1.000-1.030) Urine Protein (Negative) Urine Glucose (UA) (Negative) Urine Ketones (Negative) Urine Blood (Negative) Urine Nitrite (Negative) Urine Bilirubin (Negative) Urine Urobilinogen (Negative) Ur Leukocyte Esterase (Negative) Urine Comment Nasal Screen MRSA (PCR) (Negative) Blood Type A Positive Antibody Screen NEGATIVE 05/07/25 05/07/25 05/07/25 Range/Units 20:44 20:45 21:55 WBC (4.8-10.8) K/ul RBC (4.20-5.40) M/uL Hgb (12.0-16.0) g/dL POC Hgb (12.0-16.0) g/dl Hct (37.0-47.0) % POC Hct (37-47) % MCV (80.0-100.0) fL MCH (25.0-34.0) pg MCHC (32.0-36.0) g/dL RDW Std Deviation (36.4-46.3) fL RDW Coeff of Raheel (11.5-14.5) % Plt Count (130-400) K/uL MPV (9.4-12.4) fL Immature Gran % (Auto) % Neut % (Auto) % Lymph % (Auto) % [place] % (Auto) % Eos % (Auto) % Baso % (Auto) % Neut # (Auto) (1.40-6.50) K/uL Lymph # (Auto) (1.20-3.40) K/uL [place] # (Auto) (0.11-0.59) K/uL Eos # (Auto) (0.00-0.50) K/uL Baso # (Auto) (0.00-0.20) K/uL Immature Gran # (Auto) (0.01-0.20) K/uL RBC Morphology VBG pH (7.36-7.41) VBG pCO2 (38-50) mmHg VBG pO2 mmHg VBG HCO3 mmol/L VBG O2 Saturation % VBG Base Excess mEq/L POC Sodium (135-144) mmol/L Sodium (136-145) mmol/L POC Potassium (3.3-5.0) mmol/L Potassium (3.5-5.1) mmol/L POC Chloride (101-112) mmol/L Chloride (98-107) mmol/L Carbon Dioxide (21-32) mmol/L POC Total CO2 (24-31) mmol/L Anion Gap (3-11) POC Anion Gap (16-25) mmol/L POC BUN (7-18) mg/dl BUN (6-23) mg/dl Creatinine (0.6-1.2) mg/dl POC Creatinine (0.6-1.3) mg/dl Est Cr Clr Drug Dosing eGFR BUN/Creatinine Ratio (10-20) Glucose (70-99(Fasting)) mg/dl POC Glucose (70-99) mg/dl POC Glucose (other) (70-99) mg/dl Estimat Average Glucose mg/dl Hemoglobin A1c (4.5-5.6) % Osmolality (280-300) mOsm/kg Lactate 4.9 H* 4.3 H* (0.4-2.0) mmol/L Calcium (8.6-10.3) mg/dl POC Ioniz Calcium Latoya (1.12-1.32) mmol/l Phosphorus (2.5-4.9) mg/dl Magnesium (1.7-2.4) mg/dl Total Bilirubin (0.2-1.0) mg/dl Direct Bilirubin (0-0.2) mg/dl AST (13-39) U/L ALT (7-52) U/L Alkaline Phosphatase (34-104) U/L Troponin I High Sens (0-14) pg/ml Total Protein (6.0-8.3) gm/dl Albumin (3.4-5.0) gm/dl Lipase (11-82) U/L Carcinoembryonic Ag (0-2.5) ng/ml Procalcitonin (0-0.5) ng/ml TSH (0.300-4.500) uIu/ml Urine Color Yellow Urine Appearance Clear (Clear) Urine pH 5.5 (4.5-7.5) Ur Specific Jbphh 1.040 H (1.000-1.030) Urine Protein Negative (Negative) Urine Glucose (UA) 3+ H (Negative) Urine Ketones 4+ H (Negative) Urine Blood Negative (Negative) Urine Nitrite Negative (Negative) Urine Bilirubin Negative (Negative) Urine Urobilinogen Negative (Negative) Ur Leukocyte Esterase Negative (Negative) Urine Comment Nasal Screen MRSA (PCR) (Negative) Blood Type Antibody Screen 05/07/25 05/07/25 05/07/25 Range/Units 22:41 22:49 23:51 WBC (4.8-10.8) K/ul RBC (4.20-5.40) M/uL Hgb (12.0-16.0) g/dL POC Hgb (12.0-16.0) g/dl Hct (37.0-47.0) % POC Hct (37-47) % MCV (80.0-100.0) fL MCH (25.0-34.0) pg MCHC (32.0-36.0) g/dL RDW Std Deviation (36.4-46.3) fL RDW Coeff of Raheel (11.5-14.5) % Plt Count (130-400) K/uL MPV (9.4-12.4) fL Immature Gran % (Auto) % Neut % (Auto) % Lymph % (Auto) % [place] % (Auto) % Eos % (Auto) % Baso % (Auto) % Neut # (Auto) (1.40-6.50) K/uL Lymph # (Auto) (1.20-3.40) K/uL [place] # (Auto) (0.11-0.59) K/uL Eos # (Auto) (0.00-0.50) K/uL Baso # (Auto) (0.00-0.20) K/uL Immature Gran # (Auto) (0.01-0.20) K/uL RBC Morphology VBG pH 7.18 L (7.36-7.41) VBG pCO2 31 L (38-50) mmHg VBG pO2 48 mmHg VBG HCO3 12 mmol/L VBG O2 Saturation 75.7 % VBG Base Excess -15.5 mEq/L POC Sodium (135-144) mmol/L Sodium 138 (136-145) mmol/L POC Potassium (3.3-5.0) mmol/L Potassium 4.8 (3.5-5.1) mmol/L POC Chloride (101-112) mmol/L Chloride 100 (98-107) mmol/L Carbon Dioxide 11 L (21-32) mmol/L POC Total CO2 (24-31) mmol/L Anion Gap 27 H (3-11) POC Anion Gap (16-25) mmol/L POC BUN (7-18) mg/dl BUN 15 (6-23) mg/dl Creatinine 1.02 (0.6-1.2) mg/dl POC Creatinine (0.6-1.3) mg/dl Est Cr Clr Drug Dosing 64.4 eGFR 64.57 BUN/Creatinine Ratio 14.7 (10-20) Glucose 464 H* (70-99(Fasting)) mg/dl POC Glucose 420 H* 345 H* (70-99) mg/dl POC Glucose (other) (70-99) mg/dl Estimat Average Glucose mg/dl Hemoglobin A1c (4.5-5.6) % Osmolality (280-300) mOsm/kg Lactate (0.4-2.0) mmol/L Calcium 8.2 L (8.6-10.3) mg/dl POC Ioniz Calcium Latoya (1.12-1.32) mmol/l Phosphorus (2.5-4.9) mg/dl Magnesium (1.7-2.4) mg/dl Total Bilirubin (0.2-1.0) mg/dl Direct Bilirubin (0-0.2) mg/dl AST (13-39) U/L ALT (7-52) U/L Alkaline Phosphatase (34-104) U/L Troponin I High Sens (0-14) pg/ml Total Protein (6.0-8.3) gm/dl Albumin (3.4-5.0) gm/dl Lipase (11-82) U/L Carcinoembryonic Ag (0-2.5) ng/ml Procalcitonin (0-0.5) ng/ml TSH (0.300-4.500) uIu/ml Urine Color Urine Appearance (Clear) Urine pH (4.5-7.5) Ur Specific Jbphh (1.000-1.030) Urine Protein (Negative) Urine Glucose (UA) (Negative) Urine Ketones (Negative) Urine Blood (Negative) Urine Nitrite (Negative) Urine Bilirubin (Negative) Urine Urobilinogen (Negative) Ur Leukocyte Esterase (Negative) Urine Comment Nasal Screen MRSA (PCR) (Negative) Blood Type Antibody Screen 05/08/25 05/08/25 05/08/25 Range/Units 00:07 00:45 01:14 WBC (4.8-10.8) K/ul RBC (4.20-5.40) M/uL Hgb (12.0-16.0) g/dL POC Hgb (12.0-16.0) g/dl Hct (37.0-47.0) % POC Hct (37-47) % MCV (80.0-100.0) fL MCH (25.0-34.0) pg MCHC (32.0-36.0) g/dL RDW Std Deviation (36.4-46.3) fL RDW Coeff of Raheel (11.5-14.5) % Plt Count (130-400) K/uL MPV (9.4-12.4) fL Immature Gran % (Auto) % Neut % (Auto) % Lymph % (Auto) % [place] % (Auto) % Eos % (Auto) % Baso % (Auto) % Neut # (Auto) (1.40-6.50) K/uL Lymph # (Auto) (1.20-3.40) K/uL [place] # (Auto) (0.11-0.59) K/uL Eos # (Auto) (0.00-0.50) K/uL Baso # (Auto) (0.00-0.20) K/uL Immature Gran # (Auto) (0.01-0.20) K/uL RBC Morphology VBG pH 7.23 L (7.36-7.41) VBG pCO2 34 L (38-50) mmHg VBG pO2 25 mmHg VBG HCO3 14 mmol/L VBG O2 Saturation < 60.0 % VBG Base Excess -12.3 mEq/L POC Sodium (135-144) mmol/L Sodium (136-145) mmol/L POC Potassium (3.3-5.0) mmol/L Potassium (3.5-5.1) mmol/L POC Chloride (101-112) mmol/L Chloride (98-107) mmol/L Carbon Dioxide (21-32) mmol/L POC Total CO2 (24-31) mmol/L Anion Gap (3-11) POC Anion Gap (16-25) mmol/L POC BUN (7-18) mg/dl BUN (6-23) mg/dl Creatinine (0.6-1.2) mg/dl POC Creatinine (0.6-1.3) mg/dl Est Cr Clr Drug Dosing eGFR BUN/Creatinine Ratio (10-20) Glucose (70-99(Fasting)) mg/dl POC Glucose 294 H (70-99) mg/dl POC Glucose (other) (70-99) mg/dl Estimat Average Glucose mg/dl Hemoglobin A1c (4.5-5.6) % Osmolality (280-300) mOsm/kg Lactate 5.6 H* (0.4-2.0) mmol/L Calcium (8.6-10.3) mg/dl POC Ioniz Calcium Latoya (1.12-1.32) mmol/l Phosphorus (2.5-4.9) mg/dl Magnesium (1.7-2.4) mg/dl Total Bilirubin (0.2-1.0) mg/dl Direct Bilirubin (0-0.2) mg/dl AST (13-39) U/L ALT (7-52) U/L Alkaline Phosphatase (34-104) U/L Troponin I High Sens (0-14) pg/ml Total Protein (6.0-8.3) gm/dl Albumin (3.4-5.0) gm/dl Lipase (11-82) U/L Carcinoembryonic Ag 1.2 (0-2.5) ng/ml Procalcitonin (0-0.5) ng/ml TSH (0.300-4.500) uIu/ml Urine Color Urine Appearance (Clear) Urine pH (4.5-7.5) Ur Specific Jbphh (1.000-1.030) Urine Protein (Negative) Urine Glucose (UA) (Negative) Urine Ketones (Negative) Urine Blood (Negative) Urine Nitrite (Negative) Urine Bilirubin (Negative) Urine Urobilinogen (Negative) Ur Leukocyte Esterase (Negative) Urine Comment Nasal Screen MRSA (PCR) (Negative) Blood Type Antibody Screen 05/08/25 05/08/25 05/08/25 Range/Units 01:55 02:00 02:56 WBC (4.8-10.8) K/ul RBC (4.20-5.40) M/uL Hgb (12.0-16.0) g/dL POC Hgb (12.0-16.0) g/dl Hct (37.0-47.0) % POC Hct (37-47) % MCV (80.0-100.0) fL MCH (25.0-34.0) pg MCHC (32.0-36.0) g/dL RDW Std Deviation (36.4-46.3) fL RDW Coeff of Raheel (11.5-14.5) % Plt Count (130-400) K/uL MPV (9.4-12.4) fL Immature Gran % (Auto) % Neut % (Auto) % Lymph % (Auto) % [place] % (Auto) % Eos % (Auto) % Baso % (Auto) % Neut # (Auto) (1.40-6.50) K/uL Lymph # (Auto) (1.20-3.40) K/uL [place] # (Auto) (0.11-0.59) K/uL Eos # (Auto) (0.00-0.50) K/uL Baso # (Auto) (0.00-0.20) K/uL Immature Gran # (Auto) (0.01-0.20) K/uL RBC Morphology VBG pH (7.36-7.41) VBG pCO2 (38-50) mmHg VBG pO2 mmHg VBG HCO3 mmol/L VBG O2 Saturation % VBG Base Excess mEq/L POC Sodium (135-144) mmol/L Sodium (136-145) mmol/L POC Potassium (3.3-5.0) mmol/L Potassium (3.5-5.1) mmol/L POC Chloride (101-112) mmol/L Chloride (98-107) mmol/L Carbon Dioxide (21-32) mmol/L POC Total CO2 (24-31) mmol/L Anion Gap (3-11) POC Anion Gap (16-25) mmol/L POC BUN (7-18) mg/dl BUN (6-23) mg/dl Creatinine (0.6-1.2) mg/dl POC Creatinine (0.6-1.3) mg/dl Est Cr Clr Drug Dosing eGFR BUN/Creatinine Ratio (10-20) Glucose (70-99(Fasting)) mg/dl POC Glucose 254 H 213 H (70-99) mg/dl POC Glucose (other) (70-99) mg/dl Estimat Average Glucose mg/dl Hemoglobin A1c (4.5-5.6) % Osmolality (280-300) mOsm/kg Lactate (0.4-2.0) mmol/L Calcium (8.6-10.3) mg/dl POC Ioniz Calcium Latoya (1.12-1.32) mmol/l Phosphorus (2.5-4.9) mg/dl Magnesium (1.7-2.4) mg/dl Total Bilirubin (0.2-1.0) mg/dl Direct Bilirubin (0-0.2) mg/dl AST (13-39) U/L ALT (7-52) U/L Alkaline Phosphatase (34-104) U/L Troponin I High Sens (0-14) pg/ml Total Protein (6.0-8.3) gm/dl Albumin (3.4-5.0) gm/dl Lipase (11-82) U/L Carcinoembryonic Ag (0-2.5) ng/ml Procalcitonin (0-0.5) ng/ml TSH (0.300-4.500) uIu/ml Urine Color Urine Appearance (Clear) Urine pH (4.5-7.5) Ur Specific Jbphh (1.000-1.030) Urine Protein (Negative) Urine Glucose (UA) (Negative) Urine Ketones (Negative) Urine Blood (Negative) Urine Nitrite (Negative) Urine Bilirubin (Negative) Urine Urobilinogen (Negative) Ur Leukocyte Esterase (Negative) Urine Comment Nasal Screen MRSA (PCR) Negative (Negative) Blood Type Antibody Screen 05/08/25 05/08/25 05/08/25 Range/Units 03:27 04:01 05:04 WBC 17.50 H (4.8-10.8) K/ul RBC 3.37 L (4.20-5.40) M/uL Hgb 10.7 L (12.0-16.0) g/dL POC Hgb (12.0-16.0) g/dl Hct 31.6 L (37.0-47.0) % POC Hct (37-47) % MCV 93.8 (80.0-100.0) fL MCH 31.8 (25.0-34.0) pg MCHC 33.9 (32.0-36.0) g/dL RDW Std Deviation 49.8 H (36.4-46.3) fL RDW Coeff of Raheel 14.6 H (11.5-14.5) % Plt Count 244 (130-400) K/uL MPV 9.6 (9.4-12.4) fL Immature Gran % (Auto) 0.4 % Neut % (Auto) 87.3 % Lymph % (Auto) 5.7 % [place] % (Auto) 6.5 % Eos % (Auto) 0.0 % Baso % (Auto) 0.1 % Neut # (Auto) 15.28 H (1.40-6.50) K/uL Lymph # (Auto) 1.00 L (1.20-3.40) K/uL [place] # (Auto) 1.13 H (0.11-0.59) K/uL Eos # (Auto) 0.00 (0.00-0.50) K/uL Baso # (Auto) 0.02 (0.00-0.20) K/uL Immature Gran # (Auto) 0.07 (0.01-0.20) K/uL RBC Morphology VBG pH 7.32 L (7.36-7.41) VBG pCO2 37 L (38-50) mmHg VBG pO2 24 mmHg VBG HCO3 19 mmol/L VBG O2 Saturation < 60.0 % VBG Base Excess -6.4 mEq/L POC Sodium (135-144) mmol/L Sodium 139 (136-145) mmol/L POC Potassium (3.3-5.0) mmol/L Potassium 4.1 (3.5-5.1) mmol/L POC Chloride (101-112) mmol/L Chloride 107 (98-107) mmol/L Carbon Dioxide 19 L (21-32) mmol/L POC Total CO2 (24-31) mmol/L Anion Gap 13 H (3-11) POC Anion Gap (16-25) mmol/L POC BUN (7-18) mg/dl BUN 14 (6-23) mg/dl Creatinine 1.07 (0.6-1.2) mg/dl POC Creatinine (0.6-1.3) mg/dl Est Cr Clr Drug Dosing 61.4 eGFR 60.96 BUN/Creatinine Ratio 13.1 (10-20) Glucose 230 H (70-99(Fasting)) mg/dl POC Glucose 224 H 272 H (70-99) mg/dl POC Glucose (other) (70-99) mg/dl Estimat Average Glucose 128 mg/dl Hemoglobin A1c 6.1 H (4.5-5.6) % Osmolality (280-300) mOsm/kg Lactate 2.3 H* (0.4-2.0) mmol/L Calcium 8.6 (8.6-10.3) mg/dl POC Ioniz Calcium Latoya (1.12-1.32) mmol/l Phosphorus (2.5-4.9) mg/dl Magnesium (1.7-2.4) mg/dl Total Bilirubin (0.2-1.0) mg/dl Direct Bilirubin (0-0.2) mg/dl AST (13-39) U/L ALT (7-52) U/L Alkaline Phosphatase (34-104) U/L Troponin I High Sens (0-14) pg/ml Total Protein (6.0-8.3) gm/dl Albumin (3.4-5.0) gm/dl Lipase 4 L (11-82) U/L Carcinoembryonic Ag (0-2.5) ng/ml Procalcitonin (0-0.5) ng/ml TSH 1.470 (0.300-4.500) uIu/ml Urine Color Urine Appearance (Clear) Urine pH (4.5-7.5) Ur Specific Jbphh (1.000-1.030) Urine Protein (Negative) Urine Glucose (UA) (Negative) Urine Ketones (Negative) Urine Blood (Negative) Urine Nitrite (Negative) Urine Bilirubin (Negative) Urine Urobilinogen (Negative) Ur Leukocyte Esterase (Negative) Urine Comment Nasal Screen MRSA (PCR) (Negative) Blood Type Antibody Screen 05/08/25 05/08/25 05/08/25 Range/Units 05:58 07:02 07:17 WBC (4.8-10.8) K/ul RBC (4.20-5.40) M/uL Hgb (12.0-16.0) g/dL POC Hgb (12.0-16.0) g/dl Hct (37.0-47.0) % POC Hct (37-47) % MCV (80.0-100.0) fL MCH (25.0-34.0) pg MCHC (32.0-36.0) g/dL RDW Std Deviation (36.4-46.3) fL RDW Coeff of Raheel (11.5-14.5) % Plt Count (130-400) K/uL MPV (9.4-12.4) fL Immature Gran % (Auto) % Neut % (Auto) % Lymph % (Auto) % [place] % (Auto) % Eos % (Auto) % Baso % (Auto) % Neut # (Auto) (1.40-6.50) K/uL Lymph # (Auto) (1.20-3.40) K/uL [place] # (Auto) (0.11-0.59) K/uL Eos # (Auto) (0.00-0.50) K/uL Baso # (Auto) (0.00-0.20) K/uL Immature Gran # (Auto) (0.01-0.20) K/uL RBC Morphology VBG pH 7.41 (7.36-7.41) VBG pCO2 (38-50) mmHg VBG pO2 mmHg VBG HCO3 mmol/L VBG O2 Saturation % VBG Base Excess mEq/L POC Sodium (135-144) mmol/L Sodium (136-145) mmol/L POC Potassium (3.3-5.0) mmol/L Potassium (3.5-5.1) mmol/L POC Chloride (101-112) mmol/L Chloride (98-107) mmol/L Carbon Dioxide (21-32) mmol/L POC Total CO2 (24-31) mmol/L Anion Gap (3-11) POC Anion Gap (16-25) mmol/L POC BUN (7-18) mg/dl BUN (6-23) mg/dl Creatinine (0.6-1.2) mg/dl POC Creatinine (0.6-1.3) mg/dl Est Cr Clr Drug Dosing eGFR BUN/Creatinine Ratio (10-20) Glucose (70-99(Fasting)) mg/dl POC Glucose 258 H 279 H (70-99) mg/dl POC Glucose (other) (70-99) mg/dl Estimat Average Glucose mg/dl Hemoglobin A1c (4.5-5.6) % Osmolality (280-300) mOsm/kg Lactate (0.4-2.0) mmol/L Calcium (8.6-10.3) mg/dl POC Ioniz Calcium Latoya (1.12-1.32) mmol/l Phosphorus (2.5-4.9) mg/dl Magnesium (1.7-2.4) mg/dl Total Bilirubin (0.2-1.0) mg/dl Direct Bilirubin (0-0.2) mg/dl AST (13-39) U/L ALT (7-52) U/L Alkaline Phosphatase (34-104) U/L Troponin I High Sens (0-14) pg/ml Total Protein (6.0-8.3) gm/dl Albumin (3.4-5.0) gm/dl Lipase (11-82) U/L Carcinoembryonic Ag (0-2.5) ng/ml Procalcitonin (0-0.5) ng/ml TSH (0.300-4.500) uIu/ml Urine Color Urine Appearance (Clear) Urine pH (4.5-7.5) Ur Specific Jbphh (1.000-1.030) Urine Protein (Negative) Urine Glucose (UA) (Negative) Urine Ketones (Negative) Urine Blood (Negative) Urine Nitrite (Negative) Urine Bilirubin (Negative) Urine Urobilinogen (Negative) Ur Leukocyte Esterase (Negative) Urine Comment Nasal Screen MRSA (PCR) (Negative) Blood Type Antibody Screen 05/08/25 05/08/25 05/08/25 Range/Units 07:17 08:03 09:02 WBC (4.8-10.8) K/ul RBC (4.20-5.40) M/uL Hgb (12.0-16.0) g/dL POC Hgb (12.0-16.0) g/dl Hct (37.0-47.0) % POC Hct (37-47) % MCV (80.0-100.0) fL MCH (25.0-34.0) pg MCHC (32.0-36.0) g/dL RDW Std Deviation (36.4-46.3) fL RDW Coeff of Raheel (11.5-14.5) % Plt Count (130-400) K/uL MPV (9.4-12.4) fL Immature Gran % (Auto) % Neut % (Auto) % Lymph % (Auto) % [place] % (Auto) % Eos % (Auto) % Baso % (Auto) % Neut # (Auto) (1.40-6.50) K/uL Lymph # (Auto) (1.20-3.40) K/uL [place] # (Auto) (0.11-0.59) K/uL Eos # (Auto) (0.00-0.50) K/uL Baso # (Auto) (0.00-0.20) K/uL Immature Gran # (Auto) (0.01-0.20) K/uL RBC Morphology VBG pH 7.41 (7.36-7.41) VBG pCO2 39 (38-50) mmHg VBG pO2 27 mmHg VBG HCO3 25 mmol/L VBG O2 Saturation < 60.0 % VBG Base Excess 0.1 mEq/L POC Sodium (135-144) mmol/L Sodium 139 (136-145) mmol/L POC Potassium (3.3-5.0) mmol/L Potassium 3.9 (3.5-5.1) mmol/L POC Chloride (101-112) mmol/L Chloride 109 H (98-107) mmol/L Carbon Dioxide 22 (21-32) mmol/L POC Total CO2 (24-31) mmol/L Anion Gap 8 (3-11) POC Anion Gap (16-25) mmol/L POC BUN (7-18) mg/dl BUN 12 (6-23) mg/dl Creatinine 0.99 (0.6-1.2) mg/dl POC Creatinine (0.6-1.3) mg/dl Est Cr Clr Drug Dosing 66.3 eGFR 66.92 BUN/Creatinine Ratio 12.1 (10-20) Glucose 322 H* (70-99(Fasting)) mg/dl POC Glucose 243 H 269 H (70-99) mg/dl POC Glucose (other) (70-99) mg/dl Estimat Average Glucose mg/dl Hemoglobin A1c (4.5-5.6) % Osmolality (280-300) mOsm/kg Lactate (0.4-2.0) mmol/L Calcium 8.3 L (8.6-10.3) mg/dl POC Ioniz Calcium Latoya (1.12-1.32) mmol/l Phosphorus 1.0 L* (2.5-4.9) mg/dl Magnesium (1.7-2.4) mg/dl Total Bilirubin (0.2-1.0) mg/dl Direct Bilirubin (0-0.2) mg/dl AST (13-39) U/L ALT (7-52) U/L Alkaline Phosphatase (34-104) U/L Troponin I High Sens (0-14) pg/ml Total Protein (6.0-8.3) gm/dl Albumin (3.4-5.0) gm/dl Lipase (11-82) U/L Carcinoembryonic Ag (0-2.5) ng/ml Procalcitonin (0-0.5) ng/ml TSH (0.300-4.500) uIu/ml Urine Color Urine Appearance (Clear) Urine pH (4.5-7.5) Ur Specific Jbphh (1.000-1.030) Urine Protein (Negative) Urine Glucose (UA) (Negative) Urine Ketones (Negative) Urine Blood (Negative) Urine Nitrite (Negative) Urine Bilirubin (Negative) Urine Urobilinogen (Negative) Ur Leukocyte Esterase (Negative) Urine Comment Nasal Screen MRSA (PCR) (Negative) Blood Type Antibody Screen 05/08/25 05/08/25 05/08/25 Range/Units 10:02 11:08 11:59 WBC (4.8-10.8) K/ul RBC (4.20-5.40) M/uL Hgb (12.0-16.0) g/dL POC Hgb (12.0-16.0) g/dl Hct (37.0-47.0) % POC Hct (37-47) % MCV (80.0-100.0) fL MCH (25.0-34.0) pg MCHC (32.0-36.0) g/dL RDW Std Deviation (36.4-46.3) fL RDW Coeff of Raheel (11.5-14.5) % Plt Count (130-400) K/uL MPV (9.4-12.4) fL Immature Gran % (Auto) % Neut % (Auto) % Lymph % (Auto) % [place] % (Auto) % Eos % (Auto) % Baso % (Auto) % Neut # (Auto) (1.40-6.50) K/uL Lymph # (Auto) (1.20-3.40) K/uL [place] # (Auto) (0.11-0.59) K/uL Eos # (Auto) (0.00-0.50) K/uL Baso # (Auto) (0.00-0.20) K/uL Immature Gran # (Auto) (0.01-0.20) K/uL RBC Morphology VBG pH (7.36-7.41) VBG pCO2 (38-50) mmHg VBG pO2 mmHg VBG HCO3 mmol/L VBG O2 Saturation % VBG Base Excess mEq/L POC Sodium (135-144) mmol/L Sodium (136-145) mmol/L POC Potassium (3.3-5.0) mmol/L Potassium (3.5-5.1) mmol/L POC Chloride (101-112) mmol/L Chloride (98-107) mmol/L Carbon Dioxide (21-32) mmol/L POC Total CO2 (24-31) mmol/L Anion Gap (3-11) POC Anion Gap (16-25) mmol/L POC BUN (7-18) mg/dl BUN (6-23) mg/dl Creatinine (0.6-1.2) mg/dl POC Creatinine (0.6-1.3) mg/dl Est Cr Clr Drug Dosing eGFR BUN/Creatinine Ratio (10-20) Glucose (70-99(Fasting)) mg/dl POC Glucose 251 H 195 H 159 H (70-99) mg/dl POC Glucose (other) (70-99) mg/dl Estimat Average Glucose mg/dl Hemoglobin A1c (4.5-5.6) % Osmolality (280-300) mOsm/kg Lactate (0.4-2.0) mmol/L Calcium (8.6-10.3) mg/dl POC Ioniz Calcium Latoya (1.12-1.32) mmol/l Phosphorus (2.5-4.9) mg/dl Magnesium (1.7-2.4) mg/dl Total Bilirubin (0.2-1.0) mg/dl Direct Bilirubin (0-0.2) mg/dl AST (13-39) U/L ALT (7-52) U/L Alkaline Phosphatase (34-104) U/L Troponin I High Sens (0-14) pg/ml Total Protein (6.0-8.3) gm/dl Albumin (3.4-5.0) gm/dl Lipase (11-82) U/L Carcinoembryonic Ag (0-2.5) ng/ml Procalcitonin (0-0.5) ng/ml TSH (0.300-4.500) uIu/ml Urine Color Urine Appearance (Clear) Urine pH (4.5-7.5) Ur Specific Jbphh (1.000-1.030) Urine Protein (Negative) Urine Glucose (UA) (Negative) Urine Ketones (Negative) Urine Blood (Negative) Urine Nitrite (Negative) Urine Bilirubin (Negative) Urine Urobilinogen (Negative) Ur Leukocyte Esterase (Negative) Urine Comment Nasal Screen MRSA (PCR) (Negative) Blood Type Antibody Screen 05/08/25 Range/Units 13:06 WBC (4.8-10.8) K/ul RBC (4.20-5.40) M/uL Hgb (12.0-16.0) g/dL POC Hgb (12.0-16.0) g/dl Hct (37.0-47.0) % POC Hct (37-47) % MCV (80.0-100.0) fL MCH (25.0-34.0) pg MCHC (32.0-36.0) g/dL RDW Std Deviation (36.4-46.3) fL RDW Coeff of Raheel (11.5-14.5) % Plt Count (130-400) K/uL MPV (9.4-12.4) fL Immature Gran % (Auto) % Neut % (Auto) % Lymph % (Auto) % [place] % (Auto) % Eos % (Auto) % Baso % (Auto) % Neut # (Auto) (1.40-6.50) K/uL Lymph # (Auto) (1.20-3.40) K/uL [place] # (Auto) (0.11-0.59) K/uL Eos # (Auto) (0.00-0.50) K/uL Baso # (Auto) (0.00-0.20) K/uL Immature Gran # (Auto) (0.01-0.20) K/uL RBC Morphology VBG pH (7.36-7.41) VBG pCO2 (38-50) mmHg VBG pO2 mmHg VBG HCO3 mmol/L VBG O2 Saturation % VBG Base Excess mEq/L POC Sodium (135-144) mmol/L Sodium 142 (136-145) mmol/L POC Potassium (3.3-5.0) mmol/L Potassium 3.5 (3.5-5.1) mmol/L POC Chloride (101-112) mmol/L Chloride 112 H (98-107) mmol/L Carbon Dioxide 25 (21-32) mmol/L POC Total CO2 (24-31) mmol/L Anion Gap 5 (3-11) POC Anion Gap (16-25) mmol/L POC BUN (7-18) mg/dl BUN 10 (6-23) mg/dl Creatinine 0.89 (0.6-1.2) mg/dl POC Creatinine (0.6-1.3) mg/dl Est Cr Clr Drug Dosing 73.8 eGFR 76.04 BUN/Creatinine Ratio 11.2 (10-20) Glucose 80 (70-99(Fasting)) mg/dl POC Glucose (70-99) mg/dl POC Glucose (other) (70-99) mg/dl Estimat Average Glucose mg/dl Hemoglobin A1c (4.5-5.6) % Osmolality (280-300) mOsm/kg Lactate (0.4-2.0) mmol/L Calcium 9.1 (8.6-10.3) mg/dl POC Ioniz Calcium Latoya (1.12-1.32) mmol/l Phosphorus 1.9 L (2.5-4.9) mg/dl Magnesium (1.7-2.4) mg/dl Total Bilirubin (0.2-1.0) mg/dl Direct Bilirubin (0-0.2) mg/dl AST (13-39) U/L ALT (7-52) U/L Alkaline Phosphatase (34-104) U/L Troponin I High Sens (0-14) pg/ml Total Protein (6.0-8.3) gm/dl Albumin (3.4-5.0) gm/dl Lipase (11-82) U/L Carcinoembryonic Ag (0-2.5) ng/ml Procalcitonin (0-0.5) ng/ml TSH (0.300-4.500) uIu/ml Urine Color Urine Appearance (Clear) Urine pH (4.5-7.5) Ur Specific Jbphh (1.000-1.030) Urine Protein (Negative) Urine Glucose (UA) (Negative) Urine Ketones (Negative) Urine Blood (Negative) Urine Nitrite (Negative) Urine Bilirubin (Negative) Urine Urobilinogen (Negative) Ur Leukocyte Esterase (Negative) Urine Comment Nasal Screen MRSA (PCR) (Negative) Blood Type Antibody Screen (1) Abdominal mass Abdominal location: right lower quadrant Qualified Code(s): R19.03 - Right lower quadrant abdominal swelling, mass and lump (3) Diabetic ketoacidosis Diabetes mellitus type: other specified (including XENIA) Diabetes mellitus complication detail: without coma Qualified Code(s): E13.10 - Other specified diabetes mellitus with ketoacidosis without coma
[2025-05-08] MEDS ORDERED: DAPTOmycin 500 MG in SYRINGE 0 ML IV SCH (23:00)
[2025-05-08] MEDS: VANCOMYCIN HCL / NSS 1,000 MG/270 ML BAG IV SCH (23:02)
[2025-05-09 06:01] LABS: Hematocrit (blood only) 25.0 % (37.0-47.0); Hemoglobin 8.4 g/dL (12.0-16.0); Mean Corpuscular Hemoglobin 31.3 pg (25.0-34.0); Mean Corpuscular Volume 93.3 fL (80.0-100.0); Platelet Count 180 K/uL (130-400); RDW Standard Deviation 51.1 fL (36.4-46.3); Red Blood Count 2.68 M/uL (4.20-5.40); White Blood Count 10.16 K/ul (4.8-10.8)
[2025-05-09 06:21] LABS: Anion Gap 6.0 (3-11); Blood Urea Nitrogen 6.0 mg/dl (6-23); Calcium 7.8 mg/dl (8.6-10.3); Carbon Dioxide 24.0 mmol/L (21-32); Chloride 113.0 mmol/L (98-107); Creatinine Clr Calc Pharmacy 79.1 ml/min; Glucose 108.0 mg/dl (70-99(Fasting)); Potassium 3.4 mmol/L (3.5-5.1); Sodium 143.0 mmol/L (136-145)
[2025-05-09 07:06] VITALS: RESP 16
[2025-05-09] MEDS: CALCIUM GLUCONATE 1,000 MG/60 ML BAG IV SCH (08:25)
[2025-05-09] MEDS: POTASSIUM CHLORIDE / WTR 10 MEQ/100 ML PLCT IV SCH (08:36)
[2025-05-09] MEDS: KETOROLAC TROMETHAMINE 15 MG/ML VIAL IV PRN (08:41)
--- NOTE | 2025-05-09 09:54 | Discharge Summary ---
Discharge Summary Date of Service May 09, 2025 Principal Dx & Hospital Course #1 = Principal Diagnosis (1) Hypotension: 54F with PMH IDDM, PAD on plavix who was admitted two nights ago with N/V/D, abdominal pain and hypotension. Found to be in DKA and on insulin drip which was stopped 24 hours ago and transitioned back to her home pump. CT AP w contrast on admission showed a 25 x12x20 cm R Ovarian mass confirmed on pelvic US. 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 She is requiring IV morphine for pain control for this mass. Regarding her hypotension, sepsis protocol was initiated with zosyn and vanc but no evidence of bacterial infection. Suspect viral gastroenteritis. Her blood cultures are negative. D/w Dr Burrows at [facility] [place], she will be transferred to [facility] [place] for further workup. She did receive her plavix this AM. Would favor another 24 hours of IV abx but if blood cx from admission are negative at 48 hours tomorrow, would favor observing off all abx. BP today 103/64, afebrile, 94% on room air. D/w patient and who agree with transfer. #DKA -Presents with high anion gap metabolic acidosis and hyperglycemia -Suspect triggered by viral gastroenteritis vs food poisoning -Compliant with home insulin pump and follows closely with endo as OP -Required insulin drip -Resolved and back on home insulin pump #Hypotension -Possible sepsis on admission with hypotension, leukocytosis and elevated lactate -Lactate dowtrending and hypotension improving -However, there is no clear source of bacterial infection -Imaging neg for signs of infection unless gynecology believes the ovarian cyst is actually an abscess -ROS positive only for 24 hours of non bloody emesis without diarrhea -Possible that viral gastroenteritis/food poisoning resulting in volume depletion is causing her presentation Plan -Will continue empiric abx for possible sepsis for now -If blood cultures are neg x 48 hours and she continues to improve, will DC abx #Ovarian mass -CT and pelvic US showing a 23cm cystic mass -History of ovarian cysts in the past -This is likely contributing to her chronic RLQ abd pain but unclear if it is contributing to her other issues -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 plavix held for transfer I spent a total of 60 minutes coordinating, documenting, and providing care for this patient excluding time spent in the performance of separately billed services. This included personally reviewing all current laboratories and imaging studies, medical reconciliation, outpatient chart review and discussion with specialists Notes For Next Care Provider Medication Changes From Visit Held home plavix Admission HPI Per Admitting Provider History obtained from patient, family, and records. Medical history significant for PVD status post stent, DM1 on insulin pump, hyperlipidemia, hypothyroidism, GERD, migraine, anxiety disorder, past tobacco abuse. Patient had worsening achy right abdominal pain going to the back over the last few weeks. Trauma resulting in fall last month. Denies vaginal bleeding or dysuria symptoms. Worsening discomfort over the last few days. No headache, no cough, no chest pain, no SOB. Upper denture pain for some time now as per . No open wounds or extremity swelling. Nausea/emesis symptoms at home. BSG 300s at home when changing supplies as per patient. Patient compliant with home insulin pump. Usual BSG 140s with some low episodes. Patient brought to ER for evaluation. Lowest SBPs of 60s documented. Highest BSG 400s Multiple IVF boluses, IV insulin, IV Zosyn administered at the ER. 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 TTP. no guarding rigidity. no ascites : Ramesh MSK: Full ROM. No obvious deformities Ext: No Edema cyanosis Skin: Warm, Dry Neuro: AOx3 No focal deficits. Psych: Normal Mood Updated Medication List Medication Instructions Recorded Confirmed Type insulin lispro 100 unit/mL 100 unit continuous subcutaneous 11/06/18 05/07/25 History subcutaneous solution (Humalog infusion DAILY U-100 Insulin) semaglutide 1 mg/dose (4 mg/3 mL) 0.25 mg subcut WK 07/31/22 05/07/25 History subcutaneous pen injector (Ozempic) Lipitor 40 mg PO DAILY 05/08/25 05/08/25 History Plavix 75 mg PO DAILY 05/08/25 05/08/25 History Hospital Stay Data Consultations 05/07/25 23:50 ED Decision to Admit Stat 05/08/25 03:24 Consult Gynecology Routine 05/09/25 09:09 Burn CD for patient Routine Diagnostic Imagining Performed 05/07/25 19:19 CT abd pelvis IV con only Stat 05/07/25 20:41 US Pelvis [US pelvic complete] Stat 05/08/25 01:13 CT facial bones wo con Stat Pending Results Patient Have Any Pending Studies at Discharge: Yes (blood cultures, CA 125) Discharge Instructions Given to Patient (Per Discharging Provider) You are being transferred to [facility] Total Time Total Time Spent Total Time Spent (In Minutes): 60
[2025-05-09 11:13] VITALS: BP 118/72; PULSE 82; TEMP 98.1; O2SAT 97
[2025-05-09] MEDS: POTASSIUM CHLORIDE CRTAB 20 MEQ TABCR PO STA (11:40)
== END 2025-05-09 15:33 | disposition short-term general hospital (02) | DRG 871 ==
LOC: ED 19:09 → 2S 23:58 → SUATTDRO 23:58 → 2S 05-08 02:57